=== PATIENT | female | born 1985 | race Caucasian/White ===

== ENCOUNTER → 2020-06-25 08:30 | Outpatient (CLI) | payer OTHER, SELFPAY ==
[2020-06-25 09:40] LABS: Hemoglobin A1C% w Est Avg Glu 5.1 % (4.0-6.0)
[2020-06-25 09:56] LABS: Cholesterol 171 mg/dL (140-199); HDL Cholesterol 50 mg/dL (40-60); LDL Cholesterol Calculated 104 mg/dL (<100); Triglycerides 87 mg/dL (35-150)
== END ==
PROVIDERS: PCP Family Medicine; Referring Provider Family Medicine; Visit Provider Family Medicine
DX: Z00.01 Encounter for general adult medical examination with abnormal findings (principal)
CPT/HCPCS: 36415; 80061; 83036

== ENCOUNTER 2020-11-30 16:45 | Outpatient (RCR) | payer OTHER, SELFPAY ==
--- NOTE | 2020-09-08 17:45 | PT.OPPOC ---
Physical, Occupational & Speech Therapy At [facility] Current Diagnoses Pain in left hip (09/08/20) Stiffness of right hip, not elsewhere classified (09/08/20) Muscle weakness (generalized) (09/08/20) Trochanteric bursitis, right hip (09/08/20) Visit Care Team Role Provider Type Caden Gimenez MD Attending Provider Physician Family Provider Primary Care Provider Referring Provider Specialty: Family Practice Address: [address] [place] [address], [facility] Email: [email or web address] Plan Of Care PT-OP-T Assessment and Plan Start: 09/08/20 17:47 Freq: Status: Active Protocol: Document 09/08/20 16:45 DCW (Rec: 09/09/20 12:45 DCW [id number]) Physical Therapy Assessment Rehab Potential Rehabilitation Potential Excellent Evaluation Complexity Number of Personal Factors/Comorbidities 0 Number of Body Systems Impaired 1-2 Clinical Presentation at Evaluation Stable Impairments Impairments Functional Activities, Functional Mobility,Gait,Pain, ROM,Soft Tissue Mobility, Strength Goals Three Impairment Tenderness and tone along TFL and ITB Cold Work Operator Goal (LTG) Pt to note no tenderness in area of TFL during a two mile run LTG Duration 11/10/19 Two Impairment Pt presents with a 3 cm R LLD Cold Work Operator Goal (LTG) Pt to wear heel lift in right shoe 75% of the time over two weeks to determine if there is a change in her symptoms. LTG Duration 11/10/20 One Impairment Pt does not have an appropriate home exercise program Short Term Goal (STG) Pt to be independent and compliant with an appropriate HEP STG Duration 10/10/20 Assessment Summary Assessment Pt presents with pain and tenderness along TFL and ITB, which affects her activity level, especially her running. Pt appears to have a 3 cm leg length discrepancy, which affects her gait and hip mobility, and may be causing some of her discomfort. Pt does display increased tone in R TFL, ITB, and psoas. Pt should benefit from skilled therapy focusing on STM, Flexibility, Strengthening, and use of heel lift to help eliminate symptoms caused by potential LLD. Physical Therapy Plan Frequency and Duration Frequency of Treatment 1-2x/week Duration of Treatment 2 months Plan of Care Start Date 09/08/20 Plan of Care End Date 11/09/20 Therapeutic Interventions Therapeutic Interventions Gait Training,Home Exercise Program,Joint Mobilizations, Manual Therapy,Patient/ Caregiver Education,Self-Care/ Home Management,Soft Tissue Mobilization,Therapeutic Activities,Therapeutic Exercises Next Visit Focus/Plan Next Note Type Treatment Note Next Visit Plan Hip strengthening, STM, Flexibility Plan of Care Dates Plan of Care Start Date 09/08/20 Plan of Care End Date 11/09/20 Electronically Signed by: Mook Harkins, PT 09/09/20 1214 Please Sign and Return: I have reviewed this Plan of Care and certify that the skilled therapy services above are required to meet the patient?s needs. Physician Signature Date Printed Name and Credentials Clinical Instructor Signature Printed Name and Credentials
--- NOTE | 2020-09-08 17:45 | PT.OIE ---
Current Diagnoses Pain in left hip (09/08/20) Stiffness of right hip, not elsewhere classified (09/08/20) Muscle weakness (generalized) (09/08/20) Trochanteric bursitis, right hip (09/08/20) Past Medical History (Last Updated 06/28/20 @ 21:42 by Zenaida Fall) Fractures Shoulder subluxation (~2007) Trochanteric bursitis of right hip Visit Care Team Role Provider Type Caden Gimenez MD Attending Provider Physician Family Provider Primary Care Provider Referring Provider Specialty: Family Practice Address: [address] [place] [address] Email: [email or web address] Physical Therapy Initial Evaluation PT-OP-A Visit Information Start: 09/08/20 17:47 Freq: Status: Active Protocol: Document 09/08/20 16:45 DCW (Rec: 09/08/20 17:50 DCW [id number]) Out-Patient Physical Therapy Visit Information Visit Information Visit Type Initial Evaluation Visit Start Time 16:45 Visit Stop Time 17:30 Total Visit Minutes 45 Visit Number 1 Number of BOBBIN PRESSER Visits 0 Evaluation Information Evaluation Date 09/08/20 PT-OP-B Current Condition Start: 09/08/20 17:47 Freq: Status: Active Protocol: Document 09/08/20 16:45 DCW (Rec: 09/09/20 12:45 DCW [id number]) Current Condition History of Current Condition Onset Date 2006 Current Complaints Hip pain, stiffness History of Current Condition Pt is a 35 year old female presenting with a 13 year history of intermittent hip pain. Pt notes it began bothering her in 2006 after she left the [employer]. Pt reports there was no initial injury, and she is not aware of any activity that seems to make things worse, it just comes and goes. Pt notes that when she is already sore, running makes it worse, and standing up after an extended period of time sitting also give her problems. Notes her pain is fairly point specific around her right Iliac crest. Reports the pain feels like more of a burning, and is fairly superficial. PT-OP-C Subjective Start: 09/08/20 17:47 Freq: Status: Active Protocol: Document 09/08/20 16:45 DCW (Rec: 09/08/20 17:52 DCW [id number]) OP-PT Subjective Patient Comments Patient Comments Pt reports he pain has been intermittant over the last 13 years, unsure what actually causes it to flare up. Patient Questionnaires Lower Extremity Functional Scale LEFS Score 71/80 = 88.75% LEFS Impairment 1 to 19% Impaired (Score 63-79 ) PT-OP-F Manual Assessment Start: 09/08/20 17:47 Freq: Status: Active Protocol: Document 09/08/20 16:45 DCW (Rec: 09/09/20 12:45 DCW [id number]) Manual Assessments Soft Tissue Assessment Soft Tissue Mobility Assessment 2/4 Tenderness to palpation: pain with wincing along right iliac crest soft tissue, entire length of IT band. 3/4 Tenderness to palpation: wincing and withdraw along right psoas Other Manual Assessments Other Manual Assessments Leg length measurement, ASIS to medial Malleoli: R=82 cm, L =85 cm PT-OP-L Special Tests Start: 09/08/20 17:47 Freq: Status: Active Protocol: Document 09/08/20 16:45 DCW (Rec: 09/09/20 12:45 DCW [id number]) Special Tests Lumbar Spine Special Tests Straight Leg Raise Test Results Negative A-P Shearing Test Results Negative Hip Special Tests PRABHA Test Results Negative Posterior Labral Test Test Results Negative Scour Test Test Results Negative Knee Special Tests Guillermina's Test Test Results Positive R PT-OP-M Strength Start: 09/08/20 17:47 Freq: Status: Active Protocol: Document 09/08/20 16:45 DCW (Rec: 09/09/20 12:45 DCW [id number]) Hip Strength Hip Manual Muscle Testing Right Flexion (L2) 4+ Good+ Abduction 4 Good External Rotation 5 Normal Internal Rotation 4 Good PT-OP-Q Treatments Start: 09/08/20 17:47 Freq: Status: Active Protocol: Document 09/08/20 16:45 DCW (Rec: 09/09/20 12:45 DCW [id number]) Therapeutic Exercises Supine Exercises 1 Supine Exercise Name Psoas stretch off table Side right Standing Exercises 2 Standing Exercise Name Half-kneeling psoas stretch Side right 1 Standing Exercise Name Hip Abduction Side bilateral Resistance Yellow Equipment Used T-band PT-OP-T Assessment and Plan Start: 09/08/20 17:47 Freq: Status: Active Protocol: Document 09/08/20 16:45 DCW (Rec: 09/09/20 12:45 DCW [id number]) Physical Therapy Assessment Rehab Potential Rehabilitation Potential Excellent Evaluation Complexity Number of Personal Factors/Comorbidities 0 Number of Body Systems Impaired 1-2 Clinical Presentation at Evaluation Stable Impairments Impairments Functional Activities, Functional Mobility,Gait,Pain, ROM,Soft Tissue Mobility, Strength Goals Three Impairment Tenderness and tone along TFL and ITB Shelter Goal (LTG) Pt to note no tenderness in area of TFL during a two mile run LTG Duration 11/10/19 Two Impairment Pt presents with a 3 cm R LLD Correctional Cook Goal (LTG) Pt to wear heel lift in right shoe 75% of the time over two weeks to determine if there is a change in her symptoms. LTG Duration 11/10/20 One Impairment Pt does not have an appropriate home exercise program Short Term Goal (STG) Pt to be independent and compliant with an appropriate HEP STG Duration 10/10/20 Assessment Summary Assessment Pt presents with pain and tenderness along TFL and ITB, which affects her activity level, especially her running. Pt appears to have a 3 cm leg length discrepancy, which affects her gait and hip mobility, and may be causing some of her discomfort. Pt does display increased tone in R TFL, ITB, and psoas. Pt should benefit from skilled therapy focusing on STM, Flexibility, Strengthening, and use of heel lift to help eliminate symptoms caused by potential LLD. Physical Therapy Plan Frequency and Duration Frequency of Treatment 1-2x/week Duration of Treatment 2 months Plan of Care Start Date 09/08/20 Plan of Care End Date 11/09/20 Therapeutic Interventions Therapeutic Interventions Gait Training,Home Exercise Program,Joint Mobilizations, Manual Therapy,Patient/ Caregiver Education,Self-Care/ Home Management,Soft Tissue Mobilization,Therapeutic Activities,Therapeutic Exercises Next Visit Focus/Plan Next Note Type Treatment Note Next Visit Plan Hip strengthening, STM, Flexibility
--- NOTE | 2020-09-21 17:51 | PT.OTN ---
Current Diagnoses Pain in left hip (09/21/20) Stiffness of right hip, not elsewhere classified (09/21/20) Muscle weakness (generalized) (09/21/20) Trochanteric bursitis, right hip (09/21/20) Physical Therapy Treatment Note PT-OP-A Visit Information Start: 09/08/20 17:47 Freq: Status: Active Protocol: Document 09/21/20 16:41 DCW (Rec: 09/21/20 17:49 DCW [id number]) Out-Patient Physical Therapy Visit Information Visit Information Visit Type Treatment Note Visit Start Time 16:41 Visit Stop Time 17:36 Total Visit Minutes 55 Visit Number 2 Number of AIRCRAFT CHARTER DISPATCHER Visits 0 Evaluation Information Evaluation Date 09/08/20 PT-OP-B Current Condition Start: 09/08/20 17:47 Freq: Status: Active Protocol: Document 09/08/20 16:45 DCW (Rec: 09/09/20 12:45 DCW [id number]) Current Condition History of Current Condition Onset Date 2006 Current Complaints Hip pain, stiffness History of Current Condition Pt is a 35 year old female presenting with a 13 year history of intermittent hip pain. Pt notes it began bothering her in 2006 after she left the [employer]. Pt reports there was no initial injury, and she is not aware of any activity that seems to make things worse, it just comes and goes. Pt notes that when she is already sore, running makes it worse, and standing up after an extended period of time sitting also give her problems. Notes her pain is fairly point specific around her right Iliac crest. Reports the pain feels like more of a burning, and is fairly superficial. PT-OP-C Subjective Start: 09/08/20 17:47 Freq: Status: Active Protocol: Document 09/21/20 16:41 DCW (Rec: 09/21/20 17:51 DCW [id number]) OP-PT Subjective Patient Comments Patient Comments Pt has built up to wearing the thickest heel lift, notes she got a little twinge in her back yesterday, which was her first day wearing it for a full day at work, but it felt fine today. PT-OP-F Manual Assessment Start: 09/08/20 17:47 Freq: Status: Active Protocol: Document 09/08/20 16:45 DCW (Rec: 09/09/20 12:45 DCW [id number]) Manual Assessments Soft Tissue Assessment Soft Tissue Mobility Assessment 2/4 Tenderness to palpation: pain with wincing along right iliac crest soft tissue, entire length of IT band. 3/4 Tenderness to palpation: wincing and withdraw along right psoas Other Manual Assessments Other Manual Assessments Leg length measurement, ASIS to medial Malleoli: R=82 cm, L =85 cm PT-OP-L Special Tests Start: 09/08/20 17:47 Freq: Status: Active Protocol: Document 09/08/20 16:45 DCW (Rec: 09/09/20 12:45 DCW [id number]) Special Tests Lumbar Spine Special Tests Straight Leg Raise Test Results Negative A-P Shearing Test Results Negative Hip Special Tests PRABHA Test Results Negative Posterior Labral Test Test Results Negative Scour Test Test Results Negative Knee Special Tests Guillermina's Test Test Results Positive R PT-OP-M Strength Start: 09/08/20 17:47 Freq: Status: Active Protocol: Document 09/08/20 16:45 DCW (Rec: 09/09/20 12:45 DCW [id number]) Hip Strength Hip Manual Muscle Testing Right Flexion (L2) 4+ Good+ Abduction 4 Good External Rotation 5 Normal Internal Rotation 4 Good PT-OP-Q Treatments Start: 09/08/20 17:47 Freq: Status: Active Protocol: Document 09/21/20 16:41 DCW (Rec: 09/21/20 17:49 DCW [id number]) Therapeutic Exercises Supine Exercises 1 Supine Exercise Name Psoas stretch off table Side right Standing Exercises 1 Standing Exercise Name Hip Abduction Side bilateral Resistance Lv 3 Equipment Used T-band Manual Therapy Treatment Soft Tissue Mobilization 3 Body Location Distal Adductors 2 Body Location R TFL/ITB Mobilization Type Strumming,Sustained Pressure Intensity/Depth Moderate 1 Body Location B Psoas Mobilization Type Sustained Pressure Intensity/Depth Deep PT-OP-T Assessment and Plan Start: 09/08/20 17:47 Freq: Status: Active Protocol: Document 09/21/20 16:41 DCW (Rec: 09/21/20 17:49 DCW [id number]) Physical Therapy Assessment Impairments Impairments Functional Activities, Functional Mobility,Gait,Pain, ROM,Soft Tissue Mobility, Strength Goals Three Impairment Tenderness and tone along TFL and ITB Development Intern Goal (LTG) Pt to note no tenderness in area of TFL during a two mile run LTG Duration 11/10/19 Two Impairment Pt presents with a 3 cm R LLD Residential Goal (LTG) Pt to wear heel lift in right shoe 75% of the time over two weeks to determine if there is a change in her symptoms. LTG Duration 11/10/20 One Impairment Pt does not have an appropriate home exercise program Short Term Goal (STG) Pt to be independent and compliant with an appropriate HEP STG Duration 10/10/20 Assessment Summary Assessment Pt repeatedly stated she couldn't feel anything in the lateral hip of her right stance leg when performing hip abduction, like she could on the left, when the glute med was very noticeably fatiguing. Therapist palpated the area, and was unable to find any evidence of Glute Med firing, just compensatory firing of the quads, glute max, and hamstrings. Pt's R glute med appears to have significant atrophy. May attempt [place] Zealander stim next week in an attempt to cause contraction. Physical Therapy Plan Frequency and Duration Frequency of Treatment 1-2x/week Duration of Treatment 2 months Plan of Care Start Date 09/08/20 Plan of Care End Date 11/09/20 Therapeutic Interventions Therapeutic Interventions Gait Training,Home Exercise Program,Joint Mobilizations, Manual Therapy,Patient/ Caregiver Education,Self-Care/ Home Management,Soft Tissue Mobilization,Therapeutic Activities,Therapeutic Exercises Next Visit Focus/Plan Next Note Type Treatment Note Next Visit Plan Hip strengthening, STM, Flexibility
--- NOTE | 2020-09-27 17:39 | PT.OTN ---
Current Diagnoses Pain in left hip (09/27/20) Stiffness of right hip, not elsewhere classified (09/27/20) Muscle weakness (generalized) (09/27/20) Trochanteric bursitis, right hip (09/27/20) Physical Therapy Treatment Note PT-OP-A Visit Information Start: 09/08/20 17:47 Freq: Status: Active Protocol: Document 09/27/20 16:45 DCW (Rec: 09/27/20 17:38 DCW [id number]) Out-Patient Physical Therapy Visit Information Visit Information Visit Type Treatment Note Visit Start Time 16:45 Visit Stop Time 17:30 Total Visit Minutes 45 Visit Number 3 Number of PAPER FINISHER Visits 0 Evaluation Information Evaluation Date 09/08/20 PT-OP-B Current Condition Start: 09/08/20 17:47 Freq: Status: Active Protocol: Document 09/08/20 16:45 DCW (Rec: 09/09/20 12:45 DCW [id number]) Current Condition History of Current Condition Onset Date 2006 Current Complaints Hip pain, stiffness History of Current Condition Pt is a 35 year old female presenting with a 13 year history of intermittent hip pain. Pt notes it began bothering her in 2006 after she left the [employer]. Pt reports there was no initial injury, and she is not aware of any activity that seems to make things worse, it just comes and goes. Pt notes that when she is already sore, running makes it worse, and standing up after an extended period of time sitting also give her problems. Notes her pain is fairly point specific around her right Iliac crest. Reports the pain feels like more of a burning, and is fairly superficial. PT-OP-C Subjective Start: 09/08/20 17:47 Freq: Status: Active Protocol: Document 09/27/20 16:45 DCW (Rec: 09/27/20 17:38 DCW [id number]) OP-PT Subjective Patient Comments Patient Comments Pt still having trouble getting glute med to contract during HEP. PT-OP-F Manual Assessment Start: 09/08/20 17:47 Freq: Status: Active Protocol: Document 09/08/20 16:45 DCW (Rec: 09/09/20 12:45 DCW [id number]) Manual Assessments Soft Tissue Assessment Soft Tissue Mobility Assessment 2/4 Tenderness to palpation: pain with wincing along right iliac crest soft tissue, entire length of IT band. 3/4 Tenderness to palpation: wincing and withdraw along right psoas Other Manual Assessments Other Manual Assessments Leg length measurement, ASIS to medial Malleoli: R=82 cm, L =85 cm PT-OP-L Special Tests Start: 09/08/20 17:47 Freq: Status: Active Protocol: Document 09/08/20 16:45 DCW (Rec: 09/09/20 12:45 DCW [id number]) Special Tests Lumbar Spine Special Tests Straight Leg Raise Test Results Negative A-P Shearing Test Results Negative Hip Special Tests PRABHA Test Results Negative Posterior Labral Test Test Results Negative Scour Test Test Results Negative Knee Special Tests Guillermina's Test Test Results Positive R PT-OP-M Strength Start: 09/08/20 17:47 Freq: Status: Active Protocol: Document 09/08/20 16:45 DCW (Rec: 09/09/20 12:45 DCW [id number]) Hip Strength Hip Manual Muscle Testing Right Flexion (L2) 4+ Good+ Abduction 4 Good External Rotation 5 Normal Internal Rotation 4 Good PT-OP-Q Treatments Start: 09/08/20 17:47 Freq: Status: Active Protocol: Document 09/27/20 16:45 DCW (Rec: 09/27/20 17:38 DCW [id number]) Therapeutic Exercises Sidelying Exercises 1 Sidelying Exercise Name Triple Threat Side right Manual Therapy Treatment Soft Tissue Mobilization 3 Body Location Distal Adductors 2 Body Location R TFL/ITB Mobilization Type Strumming,Sustained Pressure Intensity/Depth Moderate 1 Body Location B Psoas Mobilization Type Sustained Pressure Intensity/Depth Deep PT-OP-R Modalities Start: 09/08/20 17:47 Freq: Status: Active Protocol: Document 09/27/20 16:45 DCW (Rec: 09/27/20 17:38 DCW [id number]) Electric Stimulation Electric Stimulation Danish Stimulation Body Location R Glute Med Duration (Minutes) 10 Ramp 2.0 Patient Position Sidelying Comments Cycle: 4 on/12 off PT-OP-T Assessment and Plan Start: 09/08/20 17:47 Freq: Status: Active Protocol: Document 09/27/20 16:45 DCW (Rec: 09/27/20 17:38 DCW [id number]) Physical Therapy Assessment Impairments Impairments Functional Activities, Functional Mobility,Gait,Pain, ROM,Soft Tissue Mobility, Strength Goals Three Impairment Tenderness and tone along TFL and ITB Sales Representative Gas Service Goal (LTG) Pt to note no tenderness in area of TFL during a two mile run LTG Duration 11/10/19 Two Impairment Pt presents with a 3 cm R LLD Sales Representative Gas Service Goal (LTG) Pt to wear heel lift in right shoe 75% of the time over two weeks to determine if there is a change in her symptoms. LTG Duration 11/10/20 One Impairment Pt does not have an appropriate home exercise program Short Term Goal (STG) Pt to be independent and compliant with an appropriate HEP STG Duration 10/10/20 Assessment Summary Assessment Able to palpate mild muscle contraction in glute med during exercise following Danish Stim to lateral right hip. Encouraged pt to focus on attempting to perform glute sets and using hands to feel for contraction to develop better coordination between muscle and brain. Physical Therapy Plan Frequency and Duration Frequency of Treatment 1-2x/week Duration of Treatment 2 months Plan of Care Start Date 09/08/20 Plan of Care End Date 11/09/20 Therapeutic Interventions Therapeutic Interventions Gait Training,Home Exercise Program,Joint Mobilizations, Manual Therapy,Patient/ Caregiver Education,Self-Care/ Home Management,Soft Tissue Mobilization,Therapeutic Activities,Therapeutic Exercises Next Visit Focus/Plan Next Note Type Treatment Note Next Visit Plan Hip strengthening, STM, Flexibility
--- NOTE | 2020-10-01 10:31 | PT.OTN ---
Current Diagnoses Pain in left hip (10/01/20) Stiffness of right hip, not elsewhere classified (10/01/20) Muscle weakness (generalized) (10/01/20) Trochanteric bursitis, right hip (10/01/20) Physical Therapy Treatment Note PT-OP-A Visit Information Start: 09/08/20 17:47 Freq: Status: Active Protocol: Document 10/01/20 09:45 DCW (Rec: 10/01/20 10:31 DCW [id number]) Out-Patient Physical Therapy Visit Information Visit Information Visit Type Treatment Note Visit Start Time 09:45 Visit Stop Time 10:30 Total Visit Minutes 45 Visit Number 4 Number of CEREAL SUPERVISOR Visits 0 Evaluation Information Evaluation Date 09/08/20 PT-OP-B Current Condition Start: 09/08/20 17:47 Freq: Status: Active Protocol: Document 09/08/20 16:45 DCW (Rec: 09/09/20 12:45 DCW [id number]) Current Condition History of Current Condition Onset Date 2006 Current Complaints Hip pain, stiffness History of Current Condition Pt is a 35 year old female presenting with a 13 year history of intermittent hip pain. Pt notes it began bothering her in 2006 after she left the [employer]. Pt reports there was no initial injury, and she is not aware of any activity that seems to make things worse, it just comes and goes. Pt notes that when she is already sore, running makes it worse, and standing up after an extended period of time sitting also give her problems. Notes her pain is fairly point specific around her right Iliac crest. Reports the pain feels like more of a burning, and is fairly superficial. PT-OP-C Subjective Start: 09/08/20 17:47 Freq: Status: Active Protocol: Document 10/01/20 09:45 DCW (Rec: 10/01/20 10:31 DCW [id number]) OP-PT Subjective Patient Comments Patient Comments I think I am starting to feel it work more. I'm trying to use a lot of brain power to focus on it. PT-OP-F Manual Assessment Start: 09/08/20 17:47 Freq: Status: Active Protocol: Document 09/08/20 16:45 DCW (Rec: 09/09/20 12:45 DCW [id number]) Manual Assessments Soft Tissue Assessment Soft Tissue Mobility Assessment 2/4 Tenderness to palpation: pain with wincing along right iliac crest soft tissue, entire length of IT band. 3/4 Tenderness to palpation: wincing and withdraw along right psoas Other Manual Assessments Other Manual Assessments Leg length measurement, ASIS to medial Malleoli: R=82 cm, L =85 cm PT-OP-L Special Tests Start: 09/08/20 17:47 Freq: Status: Active Protocol: Document 09/08/20 16:45 DCW (Rec: 09/09/20 12:45 DCW [id number]) Special Tests Lumbar Spine Special Tests Straight Leg Raise Test Results Negative A-P Shearing Test Results Negative Hip Special Tests PRABHA Test Results Negative Posterior Labral Test Test Results Negative Scour Test Test Results Negative Knee Special Tests Guillermina's Test Test Results Positive R PT-OP-M Strength Start: 09/08/20 17:47 Freq: Status: Active Protocol: Document 09/08/20 16:45 DCW (Rec: 09/09/20 12:45 DCW [id number]) Hip Strength Hip Manual Muscle Testing Right Flexion (L2) 4+ Good+ Abduction 4 Good External Rotation 5 Normal Internal Rotation 4 Good PT-OP-Q Treatments Start: 09/08/20 17:47 Freq: Status: Active Protocol: Document 10/01/20 09:45 DCW (Rec: 10/01/20 10:31 DCW [id number]) Gym Equipment Sport Cord 2 Exercise Details Lateral step-up onto BOSU Cord/Resistance Red 1 Exercise Details SLS vs lateral resistance Cord/Resistance Red Manual Therapy Treatment Soft Tissue Mobilization 3 Body Location Distal Adductors 2 Body Location R TFL/ITB Mobilization Type Strumming,Sustained Pressure Intensity/Depth Moderate 1 Body Location B Psoas Mobilization Type Sustained Pressure Intensity/Depth Deep PT-OP-R Modalities Start: 09/08/20 17:47 Freq: Status: Active Protocol: Document 10/01/20 09:45 DCW (Rec: 10/01/20 10:31 DCW [id number]) Electric Stimulation Electric Stimulation Greenlandic Stimulation Body Location R Glute Med Duration (Minutes) 10 Ramp 2.0 Patient Position Sidelying Comments Cycle: 4 on/12 off AROM - Hip Abduction PT-OP-T Assessment and Plan Start: 09/08/20 17:47 Freq: Status: Active Protocol: Document 10/01/20 09:45 DCW (Rec: 10/01/20 10:31 DCW [id number]) Physical Therapy Assessment Impairments Impairments Functional Activities, Functional Mobility,Gait,Pain, ROM,Soft Tissue Mobility, Strength Goals Three Impairment Tenderness and tone along TFL and ITB Sanitation Worker Hosing Machinery Goal (LTG) Pt to note no tenderness in area of TFL during a two mile run LTG Duration 11/10/19 Two Impairment Pt presents with a 3 cm R LLD Sanitation Worker Hosing Machinery Goal (LTG) Pt to wear heel lift in right shoe 75% of the time over two weeks to determine if there is a change in her symptoms. LTG Duration 11/10/20 One Impairment Pt does not have an appropriate home exercise program Short Term Goal (STG) Pt to be independent and compliant with an appropriate HEP STG Duration 10/10/20 Assessment Summary Assessment Pt continuing to show improving muscle contraction with SLS stabilization and abduction. Physical Therapy Plan Frequency and Duration Frequency of Treatment 1-2x/week Duration of Treatment 2 months Plan of Care Start Date 09/08/20 Plan of Care End Date 11/09/20 Therapeutic Interventions Therapeutic Interventions Gait Training,Home Exercise Program,Joint Mobilizations, Manual Therapy,Patient/ Caregiver Education,Self-Care/ Home Management,Soft Tissue Mobilization,Therapeutic Activities,Therapeutic Exercises Next Visit Focus/Plan Next Note Type Treatment Note Next Visit Plan Hip strengthening, STM, Flexibility
--- NOTE | 2020-10-08 10:35 | PT.OTN ---
Current Diagnoses Pain in left hip (10/08/20) Stiffness of right hip, not elsewhere classified (10/08/20) Muscle weakness (generalized) (10/08/20) Trochanteric bursitis, right hip (10/08/20) Physical Therapy Treatment Note PT-OP-A Visit Information Start: 09/08/20 17:47 Freq: Status: Active Protocol: Document 10/08/20 09:45 DCW (Rec: 10/08/20 10:35 DCW [id number]) Out-Patient Physical Therapy Visit Information Visit Information Visit Type Treatment Note Visit Start Time 09:45 Visit Stop Time 10:30 Total Visit Minutes 45 Visit Number 5 Number of ASSOCIATE CONSULTING ENGINEER Visits 0 Evaluation Information Evaluation Date 09/08/20 PT-OP-B Current Condition Start: 09/08/20 17:47 Freq: Status: Active Protocol: Document 09/08/20 16:45 DCW (Rec: 09/09/20 12:45 DCW [id number]) Current Condition History of Current Condition Onset Date 2006 Current Complaints Hip pain, stiffness History of Current Condition Pt is a 35 year old female presenting with a 13 year history of intermittent hip pain. Pt notes it began bothering her in 2006 after she left the [employer]. Pt reports there was no initial injury, and she is not aware of any activity that seems to make things worse, it just comes and goes. Pt notes that when she is already sore, running makes it worse, and standing up after an extended period of time sitting also give her problems. Notes her pain is fairly point specific around her right Iliac crest. Reports the pain feels like more of a burning, and is fairly superficial. PT-OP-C Subjective Start: 09/08/20 17:47 Freq: Status: Active Protocol: Document 10/08/20 09:45 DCW (Rec: 10/08/20 10:35 DCW [id number]) OP-PT Subjective Patient Comments Patient Comments Not much of a change with hip pain, notes she still not feeling a lot of activation in her hip. Admits there has been a lot of tightness and burning this week in her hip. PT-OP-F Manual Assessment Start: 09/08/20 17:47 Freq: Status: Active Protocol: Document 09/08/20 16:45 DCW (Rec: 09/09/20 12:45 DCW [id number]) Manual Assessments Soft Tissue Assessment Soft Tissue Mobility Assessment 2/4 Tenderness to palpation: pain with wincing along right iliac crest soft tissue, entire length of IT band. 3/4 Tenderness to palpation: wincing and withdraw along right psoas Other Manual Assessments Other Manual Assessments Leg length measurement, ASIS to medial Malleoli: R=82 cm, L =85 cm PT-OP-L Special Tests Start: 09/08/20 17:47 Freq: Status: Active Protocol: Document 09/08/20 16:45 DCW (Rec: 09/09/20 12:45 DCW [id number]) Special Tests Lumbar Spine Special Tests Straight Leg Raise Test Results Negative A-P Shearing Test Results Negative Hip Special Tests PRABHA Test Results Negative Posterior Labral Test Test Results Negative Scour Test Test Results Negative Knee Special Tests Guillermina's Test Test Results Positive R PT-OP-M Strength Start: 09/08/20 17:47 Freq: Status: Active Protocol: Document 09/08/20 16:45 DCW (Rec: 09/09/20 12:45 DCW [id number]) Hip Strength Hip Manual Muscle Testing Right Flexion (L2) 4+ Good+ Abduction 4 Good External Rotation 5 Normal Internal Rotation 4 Good PT-OP-Q Treatments Start: 09/08/20 17:47 Freq: Status: Active Protocol: Document 10/08/20 09:45 DCW (Rec: 10/08/20 10:35 DCW [id number]) Gym Equipment Sport Cord 2 Exercise Details Lateral step-up onto BOSU Cord/Resistance Red 1 Exercise Details SLS vs lateral resistance Cord/Resistance Red Manual Therapy Treatment Soft Tissue Mobilization 3 Body Location Distal Adductors 2 Body Location B TFL/ITB Mobilization Type Strumming,Sustained Pressure Intensity/Depth Moderate 1 Body Location B Psoas Mobilization Type Sustained Pressure Intensity/Depth Deep PT-OP-R Modalities Start: 09/08/20 17:47 Freq: Status: Active Protocol: Document 10/08/20 09:45 DCW (Rec: 10/08/20 10:35 DCW [id number]) Electric Stimulation Electric Stimulation Ecuadorean Stimulation Body Location R Glute Med Duration (Minutes) 10 Ramp 2.0 Patient Position Sidelying Comments Cycle: 4 on/12 off AROM - Hip Abduction PT-OP-T Assessment and Plan Start: 09/08/20 17:47 Freq: Status: Active Protocol: Document 10/08/20 09:45 DCW (Rec: 10/08/20 10:35 DCW [id number]) Physical Therapy Assessment Impairments Impairments Functional Activities, Functional Mobility,Gait,Pain, ROM,Soft Tissue Mobility, Strength Goals Three Impairment Tenderness and tone along TFL and ITB Jail Goal (LTG) Pt to note no tenderness in area of TFL during a two mile run LTG Duration 11/10/19 Two Impairment Pt presents with a 3 cm R LLD [facility] Goal (LTG) Pt to wear heel lift in right shoe 75% of the time over two weeks to determine if there is a change in her symptoms. LTG Duration 11/10/20 One Impairment Pt does not have an appropriate home exercise program Short Term Goal (STG) Pt to be independent and compliant with an appropriate HEP STG Duration 10/10/20 Assessment Summary Assessment Pt making slow but consistent progress with function and contraction of her glute med. Physical Therapy Plan Frequency and Duration Frequency of Treatment 1-2x/week Duration of Treatment 2 months Plan of Care Start Date 09/08/20 Plan of Care End Date 11/09/20 Therapeutic Interventions Therapeutic Interventions Gait Training,Home Exercise Program,Joint Mobilizations, Manual Therapy,Patient/ Caregiver Education,Self-Care/ Home Management,Soft Tissue Mobilization,Therapeutic Activities,Therapeutic Exercises Next Visit Focus/Plan Next Note Type Treatment Note Next Visit Plan Hip strengthening, STM, Flexibility
--- NOTE | 2020-11-02 17:27 | PT.OTN ---
Current Diagnoses Pain in left hip (11/02/20) Stiffness of right hip, not elsewhere classified (11/02/20) Muscle weakness (generalized) (11/02/20) Trochanteric bursitis, right hip (11/02/20) Physical Therapy Treatment Note PT-OP-A Visit Information Start: 09/08/20 17:47 Freq: Status: Active Protocol: Document 11/02/20 16:45 DCW (Rec: 11/02/20 17:27 DCW [id number]) Out-Patient Physical Therapy Visit Information Visit Information Visit Type Treatment Note Visit Start Time 16:45 Visit Stop Time 17:30 Total Visit Minutes 45 Visit Number 6 Number of CATERING TRUCK OPERATOR Visits 0 Evaluation Information Evaluation Date 09/08/20 PT-OP-B Current Condition Start: 09/08/20 17:47 Freq: Status: Active Protocol: Document 09/08/20 16:45 DCW (Rec: 09/09/20 12:45 DCW [id number]) Current Condition History of Current Condition Onset Date 2006 Current Complaints Hip pain, stiffness History of Current Condition Pt is a 35 year old female presenting with a 13 year history of intermittent hip pain. Pt notes it began bothering her in 2006 after she left the [employer]. Pt reports there was no initial injury, and she is not aware of any activity that seems to make things worse, it just comes and goes. Pt notes that when she is already sore, running makes it worse, and standing up after an extended period of time sitting also give her problems. Notes her pain is fairly point specific around her right Iliac crest. Reports the pain feels like more of a burning, and is fairly superficial. PT-OP-C Subjective Start: 09/08/20 17:47 Freq: Status: Active Protocol: Document 11/02/20 16:45 DCW (Rec: 11/02/20 17:27 DCW [id number]) OP-PT Subjective Patient Comments Patient Comments Pt reports her hip is actually feeling really good, notes minimal to no pain, still has a little difficulty feeling contraction in her glute med with resisted abduction PT-OP-F Manual Assessment Start: 09/08/20 17:47 Freq: Status: Active Protocol: Document 09/08/20 16:45 DCW (Rec: 09/09/20 12:45 DCW [id number]) Manual Assessments Soft Tissue Assessment Soft Tissue Mobility Assessment 2/4 Tenderness to palpation: pain with wincing along right iliac crest soft tissue, entire length of IT band. 3/4 Tenderness to palpation: wincing and withdraw along right psoas Other Manual Assessments Other Manual Assessments Leg length measurement, ASIS to medial Malleoli: R=82 cm, L =85 cm PT-OP-L Special Tests Start: 09/08/20 17:47 Freq: Status: Active Protocol: Document 09/08/20 16:45 DCW (Rec: 09/09/20 12:45 DCW [id number]) Special Tests Lumbar Spine Special Tests Straight Leg Raise Test Results Negative A-P Shearing Test Results Negative Hip Special Tests PRABHA Test Results Negative Posterior Labral Test Test Results Negative Scour Test Test Results Negative Knee Special Tests Guillermina's Test Test Results Positive R PT-OP-M Strength Start: 09/08/20 17:47 Freq: Status: Active Protocol: Document 09/08/20 16:45 DCW (Rec: 09/09/20 12:45 DCW [id number]) Hip Strength Hip Manual Muscle Testing Right Flexion (L2) 4+ Good+ Abduction 4 Good External Rotation 5 Normal Internal Rotation 4 Good PT-OP-Q Treatments Start: 09/08/20 17:47 Freq: Status: Active Protocol: Document 11/02/20 16:45 DCW (Rec: 11/02/20 17:27 DCW [id number]) Gym Equipment Shuttle Balance Red Details Lateral weight shift Sport Cord 1 Exercise Details SLS vs lateral resistance Cord/Resistance Red Manual Therapy Treatment Soft Tissue Mobilization 3 Body Location Distal Adductors 2 Body Location B TFL/ITB Mobilization Type Strumming,Sustained Pressure Intensity/Depth Moderate 1 Body Location B Psoas Mobilization Type Sustained Pressure Intensity/Depth Deep PT-OP-R Modalities Start: 09/08/20 17:47 Freq: Status: Active Protocol: Document 11/02/20 16:45 DCW (Rec: 11/02/20 17:27 DCW [id number]) Electric Stimulation Electric Stimulation Faroese Stimulation Body Location R Glute Med Duration (Minutes) 10 Ramp 2.0 Patient Position Sidelying Comments Cycle: 4 on/12 off AROM - Hip Abduction PT-OP-T Assessment and Plan Start: 09/08/20 17:47 Freq: Status: Active Protocol: Document 11/02/20 16:45 DCW (Rec: 11/02/20 17:27 DCW [id number]) Physical Therapy Assessment Impairments Impairments Functional Activities, Functional Mobility,Gait,Pain, ROM,Soft Tissue Mobility, Strength Goals Three Impairment Tenderness and tone along TFL and ITB Longterm Goal (LTG) Pt to note no tenderness in area of TFL during a two mile run LTG Duration 11/10/19 Two Impairment Pt presents with a 3 cm R LLD Carcass Trimmer Goal (LTG) Pt to wear heel lift in right shoe 75% of the time over two weeks to determine if there is a change in her symptoms. LTG Duration 11/10/20 One Impairment Pt does not have an appropriate home exercise program Short Term Goal (STG) Pt to be independent and compliant with an appropriate HEP STG Duration 10/10/20 Assessment Summary Assessment Significant improvement with glute med contraction during activity, pt showing great improvement and tolerance to therapy. Physical Therapy Plan Frequency and Duration Frequency of Treatment 1-2x/week Duration of Treatment 2 months Plan of Care Start Date 09/08/20 Plan of Care End Date 11/09/20 Therapeutic Interventions Therapeutic Interventions Gait Training,Home Exercise Program,Joint Mobilizations, Manual Therapy,Patient/ Caregiver Education,Self-Care/ Home Management,Soft Tissue Mobilization,Therapeutic Activities,Therapeutic Exercises Next Visit Focus/Plan Next Note Type Treatment Note Next Visit Plan Hip strengthening, STM, Flexibility
--- NOTE | 2020-11-05 10:32 | PT.OTN ---
Current Diagnoses Pain in left hip (11/05/20) Stiffness of right hip, not elsewhere classified (11/05/20) Muscle weakness (generalized) (11/05/20) Trochanteric bursitis, right hip (11/05/20) Physical Therapy Treatment Note PT-OP-A Visit Information Start: 09/08/20 17:47 Freq: Status: Active Protocol: Document 11/05/20 09:45 DCW (Rec: 11/05/20 10:32 DCW [id number]) Out-Patient Physical Therapy Visit Information Visit Information Visit Type Treatment Note Visit Start Time 09:45 Visit Stop Time 10:30 Total Visit Minutes 45 Visit Number 7 Number of ACCESSORIES REPAIRER Visits 0 Evaluation Information Evaluation Date 09/08/20 PT-OP-B Current Condition Start: 09/08/20 17:47 Freq: Status: Active Protocol: Document 09/08/20 16:45 DCW (Rec: 09/09/20 12:45 DCW [id number]) Current Condition History of Current Condition Onset Date 2006 Current Complaints Hip pain, stiffness History of Current Condition Pt is a 35 year old female presenting with a 13 year history of intermittent hip pain. Pt notes it began bothering her in 2006 after she left the [employer]. Pt reports there was no initial injury, and she is not aware of any activity that seems to make things worse, it just comes and goes. Pt notes that when she is already sore, running makes it worse, and standing up after an extended period of time sitting also give her problems. Notes her pain is fairly point specific around her right Iliac crest. Reports the pain feels like more of a burning, and is fairly superficial. PT-OP-C Subjective Start: 09/08/20 17:47 Freq: Status: Active Protocol: Document 11/05/20 09:45 DCW (Rec: 11/05/20 10:32 DCW [id number]) OP-PT Subjective Patient Comments Patient Comments Pt reports her hip has been feeling good recently, but has not attempted to return to running. PT-OP-F Manual Assessment Start: 09/08/20 17:47 Freq: Status: Active Protocol: Document 09/08/20 16:45 DCW (Rec: 09/09/20 12:45 DCW [id number]) Manual Assessments Soft Tissue Assessment Soft Tissue Mobility Assessment 2/4 Tenderness to palpation: pain with wincing along right iliac crest soft tissue, entire length of IT band. 3/4 Tenderness to palpation: wincing and withdraw along right psoas Other Manual Assessments Other Manual Assessments Leg length measurement, ASIS to medial Malleoli: R=82 cm, L =85 cm PT-OP-L Special Tests Start: 09/08/20 17:47 Freq: Status: Active Protocol: Document 09/08/20 16:45 DCW (Rec: 09/09/20 12:45 DCW [id number]) Special Tests Lumbar Spine Special Tests Straight Leg Raise Test Results Negative A-P Shearing Test Results Negative Hip Special Tests PRABHA Test Results Negative Posterior Labral Test Test Results Negative Scour Test Test Results Negative Knee Special Tests Guillermina's Test Test Results Positive R PT-OP-M Strength Start: 09/08/20 17:47 Freq: Status: Active Protocol: Document 09/08/20 16:45 DCW (Rec: 09/09/20 12:45 DCW [id number]) Hip Strength Hip Manual Muscle Testing Right Flexion (L2) 4+ Good+ Abduction 4 Good External Rotation 5 Normal Internal Rotation 4 Good PT-OP-Q Treatments Start: 09/08/20 17:47 Freq: Status: Active Protocol: Document 11/05/20 09:45 DCW (Rec: 11/05/20 10:32 DCW [id number]) Gym Equipment Sport Cord 1 Exercise Details SLS vs lateral resistance Cord/Resistance Red Therapeutic Exercises Standing Exercises 1 Standing Exercise Name Skaters Side bilateral Resistance Green Equipment Used T-band Manual Therapy Treatment Soft Tissue Mobilization 3 Body Location Distal Adductors 2 Body Location B TFL/ITB Mobilization Type Strumming,Sustained Pressure Intensity/Depth Moderate 1 Body Location B Psoas Mobilization Type Sustained Pressure Intensity/Depth Deep PT-OP-R Modalities Start: 09/08/20 17:47 Freq: Status: Active Protocol: Document 11/05/20 09:45 DCW (Rec: 11/05/20 10:32 DCW [id number]) Electric Stimulation Electric Stimulation Mauritanian Stimulation Body Location R Glute Med Duration (Minutes) 10 Ramp 2.0 Patient Position Sidelying Comments Cycle: 4 on/12 off AROM - Hip Abduction PT-OP-T Assessment and Plan Start: 09/08/20 17:47 Freq: Status: Active Protocol: Document 11/05/20 09:45 DCW (Rec: 11/05/20 10:32 DCW [id number]) Physical Therapy Assessment Impairments Impairments Functional Activities, Functional Mobility,Gait,Pain, ROM,Soft Tissue Mobility, Strength Goals Three Impairment Tenderness and tone along TFL and ITB Community Assistant Goal (LTG) Pt to note no tenderness in area of TFL during a two mile run LTG Duration 11/10/19 Two Impairment Pt presents with a 3 cm R LLD Community Assistant Goal (LTG) Pt to wear heel lift in right shoe 75% of the time over two weeks to determine if there is a change in her symptoms. LTG Duration 11/10/20 One Impairment Pt does not have an appropriate home exercise program Short Term Goal (STG) Pt to be independent and compliant with an appropriate HEP STG Duration 10/10/20 Assessment Summary Assessment Pt continues to show improvement, good glute med contraction with hip abduction today, felt fatigue in the glute with addition of skaters today. Physical Therapy Plan Frequency and Duration Frequency of Treatment 1-2x/week Duration of Treatment 2 months Plan of Care Start Date 09/08/20 Plan of Care End Date 11/09/20 Therapeutic Interventions Therapeutic Interventions Gait Training,Home Exercise Program,Joint Mobilizations, Manual Therapy,Patient/ Caregiver Education,Self-Care/ Home Management,Soft Tissue Mobilization,Therapeutic Activities,Therapeutic Exercises Next Visit Focus/Plan Next Note Type Treatment Note Next Visit Plan Hip strengthening, STM, Flexibility
--- NOTE | 2020-11-09 17:33 | PT.OTN ---
Current Diagnoses Pain in left hip (11/09/20) Stiffness of right hip, not elsewhere classified (11/09/20) Muscle weakness (generalized) (11/09/20) Trochanteric bursitis, right hip (11/09/20) Physical Therapy Treatment Note PT-OP-A Visit Information Start: 09/08/20 17:47 Freq: Status: Active Protocol: Document 11/09/20 16:45 DCW (Rec: 11/09/20 17:31 DCW [id number]) Out-Patient Physical Therapy Visit Information Visit Information Visit Type Progress Note Visit Start Time 16:45 Visit Stop Time 17:30 Total Visit Minutes 45 Visit Number 8 Number of RESPIRATORY SERVICES MANAGER Visits 0 Evaluation Information Evaluation Date 09/08/20 PT-OP-B Current Condition Start: 09/08/20 17:47 Freq: Status: Active Protocol: Document 09/08/20 16:45 DCW (Rec: 09/09/20 12:45 DCW [id number]) Current Condition History of Current Condition Onset Date 2006 Current Complaints Hip pain, stiffness History of Current Condition Pt is a 35 year old female presenting with a 13 year history of intermittent hip pain. Pt notes it began bothering her in 2006 after she left the [employer]. Pt reports there was no initial injury, and she is not aware of any activity that seems to make things worse, it just comes and goes. Pt notes that when she is already sore, running makes it worse, and standing up after an extended period of time sitting also give her problems. Notes her pain is fairly point specific around her right Iliac crest. Reports the pain feels like more of a burning, and is fairly superficial. PT-OP-C Subjective Start: 09/08/20 17:47 Freq: Status: Active Protocol: Document 11/09/20 16:45 DCW (Rec: 11/09/20 17:31 DCW [id number]) OP-PT Subjective Patient Comments Patient Comments Pt attempted running shortly on treadmill, but it went well . Pt went sledding during the snow storm, reports she probably walked ~6 miles in the snow, and didn't have any hip pain. PT-OP-F Manual Assessment Start: 09/08/20 17:47 Freq: Status: Active Protocol: Document 11/09/20 16:45 DCW (Rec: 11/09/20 17:33 DCW [id number]) Manual Assessments Soft Tissue Assessment Soft Tissue Mobility Assessment 2/4 Tenderness to palpation: pain with wincing along right iliac crest soft tissue, B psoas, entire length of IT band. 3/4 Tenderness to palpation: wincing and withdraw along bilateral adductors PT-OP-L Special Tests Start: 09/08/20 17:47 Freq: Status: Active Protocol: Document 11/09/20 16:45 DCW (Rec: 11/09/20 17:33 DCW [id number]) Special Tests Knee Special Tests Guillermina's Test Test Results Negative PT-OP-M Strength Start: 09/08/20 17:47 Freq: Status: Active Protocol: Document 11/09/20 16:45 DCW (Rec: 11/09/20 17:33 DCW [id number]) Hip Strength Hip Manual Muscle Testing Right Flexion (L2) 4+ Good+ Abduction 4 Good External Rotation 5 Normal Internal Rotation 4+ Good+ PT-OP-Q Treatments Start: 09/08/20 17:47 Freq: Status: Active Protocol: Document 11/09/20 16:45 DCW (Rec: 11/09/20 17:31 DCW [id number]) Gym Equipment Shuttle Balance Red Details Lateral weight shift, staggered ball toss Manual Therapy Treatment Soft Tissue Mobilization 3 Body Location Distal Adductors 2 Body Location B TFL/ITB Mobilization Type Strumming,Sustained Pressure Intensity/Depth Moderate 1 Body Location B Psoas Mobilization Type Sustained Pressure Intensity/Depth Deep PT-OP-R Modalities Start: 09/08/20 17:47 Freq: Status: Active Protocol: Document 11/09/20 16:45 DCW (Rec: 11/09/20 17:31 DCW [id number]) Electric Stimulation Electric Stimulation [place] Stimulation Body Location R Glute Med Duration (Minutes) 10 Ramp 2.0 Patient Position Sidelying Comments Cycle: 4 on/12 off AROM - Hip Abduction PT-OP-T Assessment and Plan Start: 09/08/20 17:47 Freq: Status: Active Protocol: Document 11/09/20 16:45 DCW (Rec: 11/09/20 17:31 DCW [id number]) Physical Therapy Assessment Impairments Impairments Functional Activities, Functional Mobility,Gait,Pain, ROM,Soft Tissue Mobility, Strength Goals Three Impairment Tenderness and tone along TFL and ITB [facility] Goal (LTG) Pt to note no tenderness in area of TFL during a two mile run LTG Duration 01/07/21 Two Impairment Pt presents with a 3 cm R LLD Roadway Technician Goal (LTG) Pt to wear heel lift in right shoe 75% of the time over two weeks to determine if there is a change in her symptoms. LTG Duration Met One Impairment Pt does not have an appropriate home exercise program Short Term Goal (STG) Pt to be independent and compliant with an appropriate HEP STG Duration Met Progress Towards Goals Progress Towards Goals Progressing Toward Goals Assessment Summary Assessment Pt making good progress, has increased activity level with no complaints of return of pain. ITB significantly less tone. Continue skilled PT in order to help patient return fully to prior level of function. Physical Therapy Plan Frequency and Duration Frequency of Treatment 1-2x/week Duration of Treatment 2 months Plan of Care Start Date 11/09/20 Plan of Care End Date 01/07/21 Therapeutic Interventions Therapeutic Interventions Gait Training,Home Exercise Program,Joint Mobilizations, Manual Therapy,Patient/ Caregiver Education,Self-Care/ Home Management,Soft Tissue Mobilization,Therapeutic Activities,Therapeutic Exercises Next Visit Focus/Plan Next Note Type Treatment Note Next Visit Plan Hip strengthening, STM, Flexibility
--- NOTE | 2020-11-09 17:33 | PT.OPPOC ---
Physical, Occupational & Speech Therapy At [facility] Current Diagnoses Pain in left hip (11/09/20) Stiffness of right hip, not elsewhere classified (11/09/20) Muscle weakness (generalized) (11/09/20) Trochanteric bursitis, right hip (11/09/20) Visit Care Team Role Provider Type Caden Gimenez MD Attending Provider Physician Family Provider Primary Care Provider Referring Provider Specialty: Family Practice Address: [address] [place] [address], [facility] Email: [email or web address] Plan Of Care PT-OP-T Assessment and Plan Start: 09/08/20 17:47 Freq: Status: Active Protocol: Document 11/09/20 16:45 DCW (Rec: 11/09/20 17:31 DCW [id number]) Physical Therapy Assessment Impairments Impairments Functional Activities, Functional Mobility,Gait,Pain, ROM,Soft Tissue Mobility, Strength Goals Three Impairment Tenderness and tone along TFL and ITB [facility] Goal (LTG) Pt to note no tenderness in area of TFL during a two mile run LTG Duration 01/07/21 Two Impairment Pt presents with a 3 cm R LLD [facility] Goal (LTG) Pt to wear heel lift in right shoe 75% of the time over two weeks to determine if there is a change in her symptoms. LTG Duration Met One Impairment Pt does not have an appropriate home exercise program Short Term Goal (STG) Pt to be independent and compliant with an appropriate HEP STG Duration Met Progress Towards Goals Progress Towards Goals Progressing Toward Goals Assessment Summary Assessment Pt making good progress, has increased activity level with no complaints of return of pain. ITB significantly less tone. Continue skilled PT in order to help patient return fully to prior level of function. Physical Therapy Plan Frequency and Duration Frequency of Treatment 1-2x/week Duration of Treatment 2 months Plan of Care Start Date 11/09/20 Plan of Care End Date 01/07/21 Therapeutic Interventions Therapeutic Interventions Gait Training,Home Exercise Program,Joint Mobilizations, Manual Therapy,Patient/ Caregiver Education,Self-Care/ Home Management,Soft Tissue Mobilization,Therapeutic Activities,Therapeutic Exercises Next Visit Focus/Plan Next Note Type Treatment Note Next Visit Plan Hip strengthening, STM, Flexibility Plan of Care Dates Plan of Care Start Date 11/09/20 Plan of Care End Date 01/07/21 Electronically Signed by: Mook Harkins, MARBIN 11/09/20 [id number] Please Sign and Return: I have reviewed this Plan of Care and certify that the skilled therapy services above are required to meet the patient?s needs. Physician Signature Date Printed Name and Credentials Clinical Instructor Signature Printed Name and Credentials
--- NOTE | 2020-11-09 17:34 | PT.OPPOC ---
Physical, Occupational & Speech Therapy At [facility] Current Diagnoses Pain in left hip (11/09/20) Stiffness of right hip, not elsewhere classified (11/09/20) Muscle weakness (generalized) (11/09/20) Trochanteric bursitis, right hip (11/09/20) Visit Care Team Role Provider Type Caden Gimenez MD Attending Provider Physician Family Provider Primary Care Provider Referring Provider Specialty: Family Practice Address: [address] [place] [address], [facility] Email: [email or web address] Plan Of Care PT-OP-T Assessment and Plan Start: 09/08/20 17:47 Freq: Status: Active Protocol: Document 11/09/20 16:45 DCW (Rec: 11/09/20 17:31 DCW [id number]) Physical Therapy Assessment Impairments Impairments Functional Activities, Functional Mobility,Gait,Pain, ROM,Soft Tissue Mobility, Strength Goals Three Impairment Tenderness and tone along TFL and ITB [facility] Goal (LTG) Pt to note no tenderness in area of TFL during a two mile run LTG Duration 01/07/21 Two Impairment Pt presents with a 3 cm R LLD [facility] Goal (LTG) Pt to wear heel lift in right shoe 75% of the time over two weeks to determine if there is a change in her symptoms. LTG Duration Met One Impairment Pt does not have an appropriate home exercise program Short Term Goal (STG) Pt to be independent and compliant with an appropriate HEP STG Duration Met Progress Towards Goals Progress Towards Goals Progressing Toward Goals Assessment Summary Assessment Pt making good progress, has increased activity level with no complaints of return of pain. ITB significantly less tone. Continue skilled PT in order to help patient return fully to prior level of function. Physical Therapy Plan Frequency and Duration Frequency of Treatment 1-2x/week Duration of Treatment 2 months Plan of Care Start Date 11/09/20 Plan of Care End Date 01/07/21 Therapeutic Interventions Therapeutic Interventions Gait Training,Home Exercise Program,Joint Mobilizations, Manual Therapy,Patient/ Caregiver Education,Self-Care/ Home Management,Soft Tissue Mobilization,Therapeutic Activities,Therapeutic Exercises Next Visit Focus/Plan Next Note Type Treatment Note Next Visit Plan Hip strengthening, STM, Flexibility Plan of Care Dates Plan of Care Start Date 11/09/20 Plan of Care End Date 01/07/21 Electronically Signed by: Mook Harkins, MARBIN 11/09/20 2091 Please Sign and Return: I have reviewed this Plan of Care and certify that the skilled therapy services above are required to meet the patient?s needs. Physician Signature Date Printed Name and Credentials Clinical Instructor Signature Printed Name and Credentials
--- NOTE | 2020-11-16 17:39 | PT.OTN ---
Current Diagnoses Pain in left hip (11/16/20) Stiffness of right hip, not elsewhere classified (11/16/20) Muscle weakness (generalized) (11/16/20) Trochanteric bursitis, right hip (11/16/20) Physical Therapy Treatment Note PT-OP-A Visit Information Start: 09/08/20 17:47 Freq: Status: Active Protocol: Document 11/16/20 16:45 DCW (Rec: 11/16/20 17:39 DCW [id number]) Out-Patient Physical Therapy Visit Information Visit Information Visit Type Treatment Note Visit Start Time 16:45 Visit Stop Time 17:30 Total Visit Minutes 45 Visit Number 9 Number of CONSOLIDATION ACCOUNTANT Visits 0 Evaluation Information Evaluation Date 09/08/20 PT-OP-B Current Condition Start: 09/08/20 17:47 Freq: Status: Active Protocol: Document 09/08/20 16:45 DCW (Rec: 09/09/20 12:45 DCW [id number]) Current Condition History of Current Condition Onset Date 2006 Current Complaints Hip pain, stiffness History of Current Condition Pt is a 35 year old female presenting with a 13 year history of intermittent hip pain. Pt notes it began bothering her in 2006 after she left the [employer]. Pt reports there was no initial injury, and she is not aware of any activity that seems to make things worse, it just comes and goes. Pt notes that when she is already sore, running makes it worse, and standing up after an extended period of time sitting also give her problems. Notes her pain is fairly point specific around her right Iliac crest. Reports the pain feels like more of a burning, and is fairly superficial. PT-OP-C Subjective Start: 09/08/20 17:47 Freq: Status: Active Protocol: Document 11/16/20 16:45 DCW (Rec: 11/16/20 17:39 DCW [id number]) OP-PT Subjective Patient Comments Patient Comments Some twinges after her recent travel, but other than that, no pain. PT-OP-F Manual Assessment Start: 09/08/20 17:47 Freq: Status: Active Protocol: Document 11/09/20 16:45 DCW (Rec: 11/09/20 17:33 DCW [id number]) Manual Assessments Soft Tissue Assessment Soft Tissue Mobility Assessment 2/4 Tenderness to palpation: pain with wincing along right iliac crest soft tissue, B psoas, entire length of IT band. 3/4 Tenderness to palpation: wincing and withdraw along bilateral adductors PT-OP-L Special Tests Start: 09/08/20 17:47 Freq: Status: Active Protocol: Document 11/09/20 16:45 DCW (Rec: 11/09/20 17:33 DCW [id number]) Special Tests Knee Special Tests Guillermina's Test Test Results Negative PT-OP-M Strength Start: 09/08/20 17:47 Freq: Status: Active Protocol: Document 11/09/20 16:45 DCW (Rec: 11/09/20 17:33 DCW [id number]) Hip Strength Hip Manual Muscle Testing Right Flexion (L2) 4+ Good+ Abduction 4 Good External Rotation 5 Normal Internal Rotation 4+ Good+ PT-OP-Q Treatments Start: 09/08/20 17:47 Freq: Status: Active Protocol: Document 11/16/20 16:45 DCW (Rec: 11/16/20 17:39 DCW [id number]) Gym Equipment Shuttle Balance Red Details Lateral weight shift, staggered ball toss Sport Cord 1 Exercise Details SLS vs lateral resistance Cord/Resistance Red Manual Therapy Treatment Soft Tissue Mobilization 3 Body Location Distal Adductors 2 Body Location B TFL/ITB Mobilization Type Strumming,Sustained Pressure Intensity/Depth Moderate 1 Body Location B Psoas Mobilization Type Sustained Pressure Intensity/Depth Deep PT-OP-R Modalities Start: 09/08/20 17:47 Freq: Status: Active Protocol: Document 11/16/20 16:45 DCW (Rec: 11/16/20 17:39 DCW [id number]) Electric Stimulation Electric Stimulation [place] Stimulation Body Location R Glute Med Duration (Minutes) 10 Ramp 2.0 Patient Position Sidelying Comments Cycle: 4 on/12 off AROM - Hip Abduction PT-OP-T Assessment and Plan Start: 09/08/20 17:47 Freq: Status: Active Protocol: Document 11/16/20 16:45 DCW (Rec: 11/16/20 17:39 DCW [id number]) Physical Therapy Assessment Impairments Impairments Functional Activities, Functional Mobility,Gait,Pain, ROM,Soft Tissue Mobility, Strength Goals Three Impairment Tenderness and tone along TFL and ITB Instrument Calibrator Goal (LTG) Pt to note no tenderness in area of TFL during a two mile run LTG Duration 01/07/21 Two Impairment Pt presents with a 3 cm R LLD Skilled Nursing Goal (LTG) Pt to wear heel lift in right shoe 75% of the time over two weeks to determine if there is a change in her symptoms. LTG Duration Met One Impairment Pt does not have an appropriate home exercise program Short Term Goal (STG) Pt to be independent and compliant with an appropriate HEP STG Duration Met Progress Towards Goals Progress Towards Goals Progressing Toward Goals Assessment Summary Assessment Pt still hasn't really tried to go out running at all due to recent bad weather, hoping to get out over the weekend and see how her hip feels. Physical Therapy Plan Frequency and Duration Frequency of Treatment 1-2x/week Duration of Treatment 2 months Plan of Care Start Date 11/09/20 Plan of Care End Date 01/07/21 Therapeutic Interventions Therapeutic Interventions Gait Training,Home Exercise Program,Joint Mobilizations, Manual Therapy,Patient/ Caregiver Education,Self-Care/ Home Management,Soft Tissue Mobilization,Therapeutic Activities,Therapeutic Exercises Next Visit Focus/Plan Next Note Type Treatment Note Next Visit Plan Hip strengthening, STM, Flexibility
--- NOTE | 2020-11-23 17:37 | PT.OTN ---
Current Diagnoses Pain in left hip (11/23/20) Stiffness of right hip, not elsewhere classified (11/23/20) Muscle weakness (generalized) (11/23/20) Trochanteric bursitis, right hip (11/23/20) Physical Therapy Treatment Note PT-OP-A Visit Information Start: 09/08/20 17:47 Freq: Status: Active Protocol: Document 11/23/20 16:45 DCW (Rec: 11/23/20 17:37 DCW [id number]) Out-Patient Physical Therapy Visit Information Visit Information Visit Type Treatment Note Visit Start Time 16:45 Visit Stop Time 17:30 Total Visit Minutes 45 Visit Number 9 Number of HEEL MOLDER Visits 0 Evaluation Information Evaluation Date 09/08/20 PT-OP-B Current Condition Start: 09/08/20 17:47 Freq: Status: Active Protocol: Document 09/08/20 16:45 DCW (Rec: 09/09/20 12:45 DCW [id number]) Current Condition History of Current Condition Onset Date 2006 Current Complaints Hip pain, stiffness History of Current Condition Pt is a 35 year old female presenting with a 13 year history of intermittent hip pain. Pt notes it began bothering her in 2006 after she left the [employer]. Pt reports there was no initial injury, and she is not aware of any activity that seems to make things worse, it just comes and goes. Pt notes that when she is already sore, running makes it worse, and standing up after an extended period of time sitting also give her problems. Notes her pain is fairly point specific around her right Iliac crest. Reports the pain feels like more of a burning, and is fairly superficial. PT-OP-C Subjective Start: 09/08/20 17:47 Freq: Status: Active Protocol: Document 11/23/20 16:45 DCW (Rec: 11/23/20 17:37 DCW [id number]) OP-PT Subjective Patient Comments Patient Comments Reports she helped her friends move on Sunday, and her hip felt good afterward. Also tried some slow running on her treadmill, and had no flair- up. PT-OP-F Manual Assessment Start: 09/08/20 17:47 Freq: Status: Active Protocol: Document 11/09/20 16:45 DCW (Rec: 11/09/20 17:33 DCW [id number]) Manual Assessments Soft Tissue Assessment Soft Tissue Mobility Assessment 2/4 Tenderness to palpation: pain with wincing along right iliac crest soft tissue, B psoas, entire length of IT band. 3/4 Tenderness to palpation: wincing and withdraw along bilateral adductors PT-OP-L Special Tests Start: 09/08/20 17:47 Freq: Status: Active Protocol: Document 11/09/20 16:45 DCW (Rec: 11/09/20 17:33 DCW [id number]) Special Tests Knee Special Tests Guillermina's Test Test Results Negative PT-OP-M Strength Start: 09/08/20 17:47 Freq: Status: Active Protocol: Document 11/09/20 16:45 DCW (Rec: 11/09/20 17:33 DCW [id number]) Hip Strength Hip Manual Muscle Testing Right Flexion (L2) 4+ Good+ Abduction 4 Good External Rotation 5 Normal Internal Rotation 4+ Good+ PT-OP-Q Treatments Start: 09/08/20 17:47 Freq: Status: Active Protocol: Document 11/23/20 16:45 DCW (Rec: 11/23/20 17:37 DCW [id number]) Gym Equipment Shuttle Balance Red Details Lateral weight shift, staggered ball toss Sport Cord 2 Exercise Details Lateral step-up onto BOSU Cord/Resistance Blue 1 Exercise Details SLS vs lateral resistance Cord/Resistance Blue Manual Therapy Treatment Soft Tissue Mobilization 3 Body Location Distal Adductors 2 Body Location B TFL/ITB Mobilization Type Strumming,Sustained Pressure Intensity/Depth Moderate 1 Body Location B Psoas Mobilization Type Sustained Pressure Intensity/Depth Deep PT-OP-R Modalities Start: 09/08/20 17:47 Freq: Status: Active Protocol: Document 11/16/20 16:45 DCW (Rec: 11/16/20 17:39 DCW [id number]) Electric Stimulation Electric Stimulation [place] Stimulation Body Location R Glute Med Duration (Minutes) 10 Ramp 2.0 Patient Position Sidelying Comments Cycle: 4 on/12 off AROM - Hip Abduction PT-OP-T Assessment and Plan Start: 09/08/20 17:47 Freq: Status: Active Protocol: Document 11/23/20 16:45 DCW (Rec: 11/23/20 17:37 DCW [id number]) Physical Therapy Assessment Impairments Impairments Functional Activities, Functional Mobility,Gait,Pain, ROM,Soft Tissue Mobility, Strength Goals Three Impairment Tenderness and tone along TFL and ITB Senior Recruitment Consultant Goal (LTG) Pt to note no tenderness in area of TFL during a two mile run LTG Duration 01/07/21 Two Impairment Pt presents with a 3 cm R LLD Senior Recruitment Consultant Goal (LTG) Pt to wear heel lift in right shoe 75% of the time over two weeks to determine if there is a change in her symptoms. LTG Duration Met One Impairment Pt does not have an appropriate home exercise program Short Term Goal (STG) Pt to be independent and compliant with an appropriate HEP STG Duration Met Progress Towards Goals Progress Towards Goals Progressing Toward Goals Assessment Summary Assessment Showing improvement with Glute med contraction. Overall feels like she is having less pain, but it has always been more come and go anyway. Physical Therapy Plan Frequency and Duration Frequency of Treatment 1-2x/week Duration of Treatment 2 months Plan of Care Start Date 11/09/20 Plan of Care End Date 01/07/21 Therapeutic Interventions Therapeutic Interventions Gait Training,Home Exercise Program,Joint Mobilizations, Manual Therapy,Patient/ Caregiver Education,Self-Care/ Home Management,Soft Tissue Mobilization,Therapeutic Activities,Therapeutic Exercises Next Visit Focus/Plan Next Note Type Treatment Note Next Visit Plan Hip strengthening, STM, Flexibility
--- NOTE | 2020-11-30 17:27 | PT.OTN ---
Current Diagnoses Pain in left hip (11/30/20) Stiffness of right hip, not elsewhere classified (11/30/20) Muscle weakness (generalized) (11/30/20) Trochanteric bursitis, right hip (11/30/20) Physical Therapy Treatment Note PT-OP-A Visit Information Start: 09/08/20 17:47 Freq: Status: Active Protocol: Document 11/30/20 16:45 DCW (Rec: 11/30/20 17:26 DCW [id number]) Out-Patient Physical Therapy Visit Information Visit Information Visit Type Treatment Note Visit Start Time 16:45 Visit Stop Time 17:30 Total Visit Minutes 45 Visit Number 10 Number of TESTER WAFER SUBSTRATE Visits 0 Evaluation Information Evaluation Date 09/08/20 PT-OP-B Current Condition Start: 09/08/20 17:47 Freq: Status: Active Protocol: Document 09/08/20 16:45 DCW (Rec: 09/09/20 12:45 DCW [id number]) Current Condition History of Current Condition Onset Date 2006 Current Complaints Hip pain, stiffness History of Current Condition Pt is a 35 year old female presenting with a 13 year history of intermittent hip pain. Pt notes it began bothering her in 2006 after she left the [employer]. Pt reports there was no initial injury, and she is not aware of any activity that seems to make things worse, it just comes and goes. Pt notes that when she is already sore, running makes it worse, and standing up after an extended period of time sitting also give her problems. Notes her pain is fairly point specific around her right Iliac crest. Reports the pain feels like more of a burning, and is fairly superficial. PT-OP-C Subjective Start: 09/08/20 17:47 Freq: Status: Active Protocol: Document 11/30/20 16:45 DCW (Rec: 11/30/20 17:26 DCW [id number]) OP-PT Subjective Patient Comments Patient Comments Pt overall feeling pretty good , no instances of pain recently. PT-OP-F Manual Assessment Start: 09/08/20 17:47 Freq: Status: Active Protocol: Document 11/09/20 16:45 DCW (Rec: 11/09/20 17:33 DCW [id number]) Manual Assessments Soft Tissue Assessment Soft Tissue Mobility Assessment 2/4 Tenderness to palpation: pain with wincing along right iliac crest soft tissue, B psoas, entire length of IT band. 3/4 Tenderness to palpation: wincing and withdraw along bilateral adductors PT-OP-L Special Tests Start: 09/08/20 17:47 Freq: Status: Active Protocol: Document 11/09/20 16:45 DCW (Rec: 11/09/20 17:33 DCW [id number]) Special Tests Knee Special Tests Guillermina's Test Test Results Negative PT-OP-M Strength Start: 09/08/20 17:47 Freq: Status: Active Protocol: Document 11/09/20 16:45 DCW (Rec: 11/09/20 17:33 DCW [id number]) Hip Strength Hip Manual Muscle Testing Right Flexion (L2) 4+ Good+ Abduction 4 Good External Rotation 5 Normal Internal Rotation 4+ Good+ PT-OP-Q Treatments Start: 09/08/20 17:47 Freq: Status: Active Protocol: Document 11/30/20 16:45 DCW (Rec: 11/30/20 17:26 DCW [id number]) Gym Equipment Sport Cord 2 Exercise Details Lateral step-up onto BOSU Cord/Resistance Blue 1 Exercise Details SLS vs lateral resistance Cord/Resistance Blue Manual Therapy Treatment Soft Tissue Mobilization 3 Body Location Distal Adductors 2 Body Location B TFL/ITB Mobilization Type Strumming,Sustained Pressure Intensity/Depth Moderate 1 Body Location B Psoas Mobilization Type Sustained Pressure Intensity/Depth Deep PT-OP-R Modalities Start: 09/08/20 17:47 Freq: Status: Active Protocol: Document 11/16/20 16:45 DCW (Rec: 11/16/20 17:39 DCW [id number]) Electric Stimulation Electric Stimulation Citizen Of [place] Stimulation Body Location R Glute Med Duration (Minutes) 10 Ramp 2.0 Patient Position Sidelying Comments Cycle: 4 on/12 off AROM - Hip Abduction PT-OP-T Assessment and Plan Start: 09/08/20 17:47 Freq: Status: Active Protocol: Document 11/30/20 16:45 DCW (Rec: 11/30/20 17:26 DCW [id number]) Physical Therapy Assessment Impairments Impairments Functional Activities, Functional Mobility,Gait,Pain, ROM,Soft Tissue Mobility, Strength Goals Three Impairment Tenderness and tone along TFL and ITB Fdc Goal (LTG) Pt to note no tenderness in area of TFL during a two mile run LTG Duration 01/07/21 Two Impairment Pt presents with a 3 cm R LLD Fdc Goal (LTG) Pt to wear heel lift in right shoe 75% of the time over two weeks to determine if there is a change in her symptoms. LTG Duration Met One Impairment Pt does not have an appropriate home exercise program Short Term Goal (STG) Pt to be independent and compliant with an appropriate HEP STG Duration Met Progress Towards Goals Progress Towards Goals Progressing Toward Goals Assessment Summary Assessment Pt still doing well overall. Pt planning to request further auth from her PCP, but then would like to hold therapy until she is able to get out and test her hip to see if she is still experiencing the same pain. Physical Therapy Plan Frequency and Duration Frequency of Treatment 1-2x/week Duration of Treatment 2 months Plan of Care Start Date 11/09/20 Plan of Care End Date 01/07/21 Therapeutic Interventions Therapeutic Interventions Gait Training,Home Exercise Program,Joint Mobilizations, Manual Therapy,Patient/ Caregiver Education,Self-Care/ Home Management,Soft Tissue Mobilization,Therapeutic Activities,Therapeutic Exercises Next Visit Focus/Plan Next Note Type Treatment Note Next Visit Plan Hip strengthening, STM, Flexibility
--- NOTE | 2021-04-12 15:00 | PT.OPDS ---
Current Diagnoses Pain in left hip (11/30/20) Stiffness of right hip, not elsewhere classified (11/30/20) Muscle weakness (generalized) (11/30/20) Trochanteric bursitis, right hip (11/30/20) Visit Care Team Role Provider Type Caden Gimenez MD Attending Provider Physician Family Provider Primary Care Provider Referring Provider Specialty: [facility] Practice Address: [address] [place] [address] Email: [email or web address] Visit Number Visit Number 10 Discharge Summary PT-OP-B Current Condition Start: 09/08/20 17:47 Freq: Status: Active Protocol: Document 09/08/20 16:45 DCW (Rec: 09/09/20 12:45 DCW [id number]) Current Condition History of Current Condition Onset Date 2006 Current Complaints Hip pain, stiffness History of Current Condition Pt is a 35 year old female presenting with a 13 year history of intermittent hip pain. Pt notes it began bothering her in 2006 after she left the [employer]. Pt reports there was no initial injury, and she is not aware of any activity that seems to make things worse, it just comes and goes. Pt notes that when she is already sore, running makes it worse, and standing up after an extended period of time sitting also give her problems. Notes her pain is fairly point specific around her right Iliac crest. Reports the pain feels like more of a burning, and is fairly superficial. PT-OP-C Subjective Start: 09/08/20 17:47 Freq: Status: Active Protocol: Document 11/30/20 16:45 DCW (Rec: 11/30/20 17:26 DCW [id number]) OP-PT Subjective Patient Comments Patient Comments Pt overall feeling pretty good , no instances of pain recently. PT-OP-F Manual Assessment Start: 09/08/20 17:47 Freq: Status: Active Protocol: Document 11/09/20 16:45 DCW (Rec: 11/09/20 17:33 DCW [id number]) Manual Assessments Soft Tissue Assessment Soft Tissue Mobility Assessment 2/4 Tenderness to palpation: pain with wincing along right iliac crest soft tissue, B psoas, entire length of IT band. 3/4 Tenderness to palpation: wincing and withdraw along bilateral adductors PT-OP-L Special Tests Start: 09/08/20 17:47 Freq: Status: Active Protocol: Document 11/09/20 16:45 DCW (Rec: 11/09/20 17:33 DCW [id number]) Special Tests Knee Special Tests Guillermina's Test Test Results Negative PT-OP-M Strength Start: 09/08/20 17:47 Freq: Status: Active Protocol: Document 11/09/20 16:45 DCW (Rec: 11/09/20 17:33 DCW [id number]) Hip Strength Hip Manual Muscle Testing Right Flexion (L2) 4+ Good+ Abduction 4 Good External Rotation 5 Normal Internal Rotation 4+ Good+ PT-OP-T Assessment and Plan Start: 09/08/20 17:47 Freq: Status: Active Protocol: Document 04/12/21 14:59 DCW (Rec: 04/12/21 15:00 DCW [id number]) Physical Therapy Assessment Assessment Summary Assessment Pt has now not been seen in more than four months, will be discharged from skilled therapy at this time. Pt will require a new referral in order to return to therapy. Physical Therapy Plan Discharge Physical Therapy Discharge Reasons No Longer Attending PT Next Visit Focus/Plan Next Note Type Discharge Summary
== END 2021-04-13 11:08 | disposition home or self-care (01) ==
LOC: PHYS 16:45
PROVIDERS: Family Provider Family Medicine; PCP Family Medicine; Referring Provider Family Medicine; Visit Provider Family Medicine
DX: M70.61 Trochanteric bursitis, right hip (principal); M62.81 Muscle weakness (generalized); M25.651 Stiffness of right hip, not elsewhere classified; M25.552 Pain in left hip
CPT/HCPCS: 97032; 97110; 97140; 97161

== ENCOUNTER → 2021-01-21 09:58 | Outpatient (CLI) | payer OTHER, SELFPAY ==
--- NOTE | 2021-01-21 09:59 | DI.RAD.S_ITS ---
PROCEDURE: XR SHOULDER RT MIN 2V INDICATIONS: Right shoulder dislocation and subluxation TECHNIQUE: 3 views of the shoulder were acquired. COMPARISON: None. FINDINGS: Bones: No fractures or dislocations. No suspicious bony lesions. Visualized ribs appear intact. Soft tissues: No suspicious soft tissue calcifications. IMPRESSION: No trauma found. No significant degenerative change. Dictated by: Tyler Fletcher M.D. on 01/21/2021 at 11:25 Approved by: Tyler Fletcher M.D. on 01/21/2021 at 11:26
== END ==
PROVIDERS: Family Provider Family Medicine; PCP Family Medicine; Referring Provider Family Medicine; Visit Provider Family Medicine
DX: S43.014A Anterior dislocation of right humerus, initial encounter (principal); S43.001A Unspecified subluxation of right shoulder joint, initial encounter; X58.XXXA Exposure to other specified factors, initial encounter
CPT/HCPCS: 73030

== ENCOUNTER → 2021-02-11 18:21 | Outpatient (CLI) | payer OTHER, SELFPAY ==
--- NOTE | 2021-02-11 18:23 | DI.MRI.S_ITS ---
PROCEDURE: MR SHOULDER RT WO CON INDICATIONS: Right shoulder dislocation and subluxation TECHNIQUE: Noncontrast oblique coronal T2 fast spin echo with fat saturation, oblique sagittal T1 spin echo and T2 fast spin echo with fat saturation, axial T1 spin echo and T2 fast spin echo with fat saturation through the shoulder. COMPARISON: [facility], CR, XR SHOULDER RT MIN 2V, 01/21/2021, 9:59. FINDINGS: Image quality: Excellent. Rotator cuff: The supraspinatus, infraspinatus, subscapularis, and teres minor appear intact. Sagittal images demonstrate no fatty muscle atrophy. Bones and bursae: There is a mildly depressed impaction fracture of the posterolateral humeral head consistent with a Hill-Sachs lesion. There is mild underlying bone marrow edema suggestive of an acute or subacute process. No discrete corresponding bony Bankart fracture identified. There is moderate acromioclavicular joint degeneration with periarticular bone marrow edema along the distal clavicle and mild capsular hypertrophy. The acromion demonstrates slight lateral downsloping, without an os acromiale. Minimal subacromial-subdeltoid bursal fluid is present. Capsule and soft tissues: There is intermediate signal within the anterior and anteroinferior labrum suggestive of mild tearing which is incompletely evaluated in the absence of intra-articular contrast. The long head of the biceps tendon demonstrates normal location and morphology. The rotator interval appears normal, without fibrosis. The coracohumeral ligament is normal in thickness. IMPRESSION: 1. Mildly depressed Hill-Sachs lesion of the humeral head with associated mild underlying bone marrow edema consistent with sequelae of prior anterior shoulder dislocation. No discrete bony Bankart fracture identified. 2. Intermediate signal within the anterior and anteroinferior labrum suggestive of mild tearing, with evaluation limited in the absence of intra-articular contrast. 3. Moderate acromioclavicular joint degeneration including periarticular edema within the distal clavicle. Slight lateral downsloping of the acromion is also present. 4. Minimal subacromial/subdeltoid bursal fluid. Dictated by: Hernando Felix M.D. on 02/14/2021 at 10:59 Approved by: Hernando Felix M.D. on 02/14/2021 at 11:21
== END ==
PROVIDERS: Family Provider Family Medicine; PCP Family Medicine; Referring Provider Family Medicine; Visit Provider Family Medicine
DX: S43.014A Anterior dislocation of right humerus, initial encounter (principal); S43.001A Unspecified subluxation of right shoulder joint, initial encounter; S42.291A Other displaced fracture of upper end of right humerus, initial encounter for closed fracture; X58.XXXA Exposure to other specified factors, initial encounter
CPT/HCPCS: 73221

== ENCOUNTER → 2021-07-29 11:47 | Outpatient (CLI) | payer OTHER, SELFPAY ==
[2021-07-29] MEDS: COVID-19 VACC #3, MRNA(MOD) 50 MCG/0.25 ML VIAL IM (11:53)
== END ==
PROVIDERS: Family Provider Family Medicine; Visit Provider Internal Medicine
DX: Z23 Encounter for immunization (principal)
CPT/HCPCS: 0013A; 91301

== ENCOUNTER 2022-05-03 16:45 | Outpatient (RCR) | payer OTHER, SELFPAY ==
--- NOTE | 2021-12-19 16:05 | PT.OIE ---
Current Diagnoses Pain in right shoulder (12/19/21) Stiffness of right shoulder, not elsewhere classified (12/19/21) Encounter for other orthopedic aftercare (12/19/21) Past Medical History (Last Updated 01/21/21 @ 09:43 by Caden Gimenez MD) Anterior dislocation of right shoulder Fractures Shoulder subluxation (~2007) Shoulder subluxation, right Trochanteric bursitis of right hip Visit Care Team Role Provider Type Caden Gimenez MD Family Provider Physician Primary Care Provider Specialty: Family Practice Address: [address] [place] [address], [id number] Email: [email or web address] Cesar Hancock MD Attending Provider Non-Staff Referring Provider Specialty: Orthopedics Address: [address] [place] [address], [id number] Email: Physical Therapy Initial Evaluation PT-OP-A Visit Information Start: 12/19/21 10:24 Freq: Status: Active Protocol: Document 12/19/21 09:45 DCW (Rec: 12/19/21 10:28 DCW [id number]) Out-Patient Physical Therapy Visit Information Visit Information Visit Type Initial Evaluation Visit Start Time 09:45 Visit Stop Time 10:20 Total Visit Minutes 35 Visit Number 1 Number of DISTRICT SALES MANAGER Visits 0 Evaluation Information Evaluation Date 12/19/21 PT-OP-B Current Condition Start: 12/19/21 10:24 Freq: Status: Active Protocol: Document 12/19/21 09:45 DCW (Rec: 12/19/21 11:51 DC [id number]) Current Condition History of Current Condition Onset Date 11/03/21 Current Complaints s/p R Bankart repair History of Current Condition Pt is a 36 year old female presenting to skilled therapy six weeks s/p R Bankart repair following history of anterior shoulder dislocation. Pt reports she has been wearing a sling up until one week ago, when she had her post-op follow-up and was told she could remove it. Pt has been performing pendulums and PROM exercises at home. Experiences occasional pain at a/c joint with extended dangling of arm or reaching forward, notes this was an issue prior to dislocation. Pt presents with right shoulder stiffness and weakness. Most notable with posterior shoulder pain with reaching cross-body. Notes desire to return to performing overhead activities, get back to 100%. PT-OP-C Subjective Start: 12/19/21 10:24 Freq: Status: Active Protocol: Document 12/19/21 09:45 DCW (Rec: 12/19/21 10:28 DCW [id number]) OP-PT Subjective Patient Comments Patient Comments I have been doing the pendulums and stuff like that when I had the sling on, but I got rid of the sling last week after my post-op follow- up. Patient Questionnaires Quick Dash- Upper Extremity Quick Dash UE Score 38.64% Quick Dash UE Impairment 20 to 39% Impaired (Score 20- 39) PT-OP-E Functional Tests Start: 12/19/21 10:24 Freq: Status: Active Protocol: Document 12/19/21 09:45 DCW (Rec: 12/19/21 11:53 DCW [id number]) Functional Tests Apley's Scratch Test Action 1- Left Posterior opposite shoulder Action 1- Right Anterior opposite shoulder Action 2- Left T5 Action 2- Right C4 Action 3- Left T 6 Action 3- Right Right SI PT-OP-F Manual Assessment Start: 12/19/21 11:54 Freq: Status: Active Protocol: Document 12/19/21 09:45 DCW (Rec: 12/19/21 11:55 DCW [id number]) Manual Assessments Soft Tissue Assessment Soft Tissue Mobility Assessment Moderate tone with tenderness to palpation 2/4: Pain with wincing along right subscap. Increased tone due to compensatory movements in right upper trap and levator scap. PT-OP-K Range of Motion Start: 12/19/21 10:24 Freq: Status: Active Protocol: Document 12/19/21 09:45 DCW (Rec: 12/19/21 11:53 DCW [id number]) Shoulder Goniometric Range of Motion Shoulder Right Passive Shoulder ROM WFL No Testing Position Supine Flexion 120 Abduction 95 External Rotation at 0 degrees Abduction 0 Right Active Shoulder ROM WFL No Testing Position Sitting Flexion 111 Abduction 89 External Rotation at 0 degrees Abduction 0 Internal Rotation Behind Back (text) R SI PT-OP-M Strength Start: 12/19/21 10:24 Freq: Status: Active Protocol: Document 12/19/21 09:45 DCW (Rec: 12/19/21 11:53 DCW [id number]) Shoulder Strength Shoulder Manual Muscle Testing Right Flexion 3- Fair- Abduction (C5) 3- Fair- External Rotation 2+ Poor+ Internal Rotation 4- Good- PT-OP-Q Treatments Start: 12/19/21 10:24 Freq: Status: Active Protocol: Document 12/19/21 09:45 DCW (Rec: 12/19/21 10:29 DCW [id number]) Cardio Equipment Upper Body Ergometer (UBE) Duration (Minutes) 3 Seat Position 12 Height 2.5 Therapeutic Exercises Supine Exercises 1 Supine Exercise Name AAROM shoulder flexion/ abduction /c PVC Side right Sitting Exercises 1 Sitting Exercise Name AAROM shoulder ER /c PVC Side right PT-OP-T Assessment and Plan Start: 12/19/21 10:24 Freq: Status: Active Protocol: Document 12/19/21 09:45 DCW (Rec: 12/19/21 16:05 DCW [id number]) Physical Therapy Assessment Rehab Potential Rehabilitation Potential Excellent Evaluation Complexity Number of Personal Factors/Comorbidities 0 Number of Body Systems Impaired 1-2 Clinical Presentation at Evaluation Stable Impairments Impairments Functional Activities, Functional Mobility,Pain,ROM, Soft Tissue Mobility,Strength, Tone Goals Two Impairment Pt unable to perform overhead activities Half-Way Goal (LTG) Pt to demonstrate AROM right shoulder flexion and abduction >160? in order to return to her usual high-level hobby activities LTG Duration 02/18/22 One Impairment Pt does not have an appropriate home exercise program Short Term Goal (STG) Pt to be independent and compliant with an appropriate HEP STG Duration 01/19/22 Assessment Summary Assessment Pt presents with expected limited ROM and weakness six weeks s/p R Bankart repair following anterior right shoulder dislocation. Pt is fairly restricted with right ROM and strength, experiences increased pain with cross-body reaching. Pt should benefit from skilled therapy to improve pain, ROM, and strength following post-op protocol. Physical Therapy Plan Frequency and Duration Frequency of Treatment 2x/Week Duration of Treatment Two months Plan of Care Start Date 12/19/21 Plan of Care End Date 02/18/22 Therapeutic Interventions Therapeutic Interventions Aquatic Therapy,Home Exercise Program,Joint Mobilizations, Manual Therapy,Neuromuscular Re-education,Patient/Caregiver Education,Self-Care/Home Management,Soft Tissue Mobilization,Therapeutic Activities,Therapeutic Exercises Modalities Cold Pack/Ice Massage,Electric Stimulation,Hot Packs, Ultrasound Next Visit Focus/Plan Next Note Type Treatment Note Next Visit Plan R shoulder ROM, strength
--- NOTE | 2021-12-19 16:05 | PT.OPPOC ---
Physical, Occupational & Speech Therapy At [facility] Current Diagnoses Pain in right shoulder (12/19/21) Stiffness of right shoulder, not elsewhere classified (12/19/21) Encounter for other orthopedic aftercare (12/19/21) Visit Care Team Role Provider Type Caden Gimenez MD Family Provider Physician Primary Care Provider Specialty: Family Practice Address: [address] [place] [address], [address] Email: [email or web address] Cesar Hancock MD Attending Provider Non-Staff Referring Provider Specialty: Orthopedics Address: [address] [place] [address], [address] Email: Plan Of Care PT-OP-T Assessment and Plan Start: 12/19/21 10:24 Freq: Status: Active Protocol: Document 12/19/21 09:45 DCW (Rec: 12/19/21 16:05 DCW [id number]) Physical Therapy Assessment Rehab Potential Rehabilitation Potential Excellent Evaluation Complexity Number of Personal Factors/Comorbidities 0 Number of Body Systems Impaired 1-2 Clinical Presentation at Evaluation Stable Impairments Impairments Functional Activities, Functional Mobility,Pain,ROM, Soft Tissue Mobility,Strength, Tone Goals Two Impairment Pt unable to perform overhead activities Health Workers Goal (LTG) Pt to demonstrate AROM right shoulder flexion and abduction >160? in order to return to her usual high-level hobby activities LTG Duration 02/18/22 One Impairment Pt does not have an appropriate home exercise program Short Term Goal (STG) Pt to be independent and compliant with an appropriate HEP STG Duration 01/19/22 Assessment Summary Assessment Pt presents with expected limited ROM and weakness six weeks s/p R Bankart repair following anterior right shoulder dislocation. Pt is fairly restricted with right ROM and strength, experiences increased pain with cross-body reaching. Pt should benefit from skilled therapy to improve pain, ROM, and strength following post-op protocol. Physical Therapy Plan Frequency and Duration Frequency of Treatment 2x/Week Duration of Treatment Two months Plan of Care Start Date 12/19/21 Plan of Care End Date 02/18/22 Therapeutic Interventions Therapeutic Interventions Aquatic Therapy,Home Exercise Program,Joint Mobilizations, Manual Therapy,Neuromuscular Re-education,Patient/Caregiver Education,Self-Care/Home Management,Soft Tissue Mobilization,Therapeutic Activities,Therapeutic Exercises Modalities Cold Pack/Ice Massage,Electric Stimulation,Hot Packs, Ultrasound Next Visit Focus/Plan Next Note Type Treatment Note Next Visit Plan R shoulder ROM, strength Plan of Care Dates Plan of Care Start Date 12/19/21 Plan of Care End Date 02/18/22 Electronically Signed by: Mook Harkins, PT 12/19/21 [id number] Please Sign and Return: I have reviewed this Plan of Care and certify that the skilled therapy services above are required to meet the patient?s needs. Physician Signature Date Printed Name and Credentials Clinical Instructor Signature Printed Name and Credentials
--- NOTE | 2021-12-21 17:45 | PT.OTN ---
Current Diagnoses Pain in right shoulder (12/21/21) Stiffness of right shoulder, not elsewhere classified (12/21/21) Encounter for other orthopedic aftercare (12/21/21) Physical Therapy Treatment Note PT-OP-A Visit Information Start: 12/19/21 10:24 Freq: Status: Active Protocol: Document 12/21/21 16:45 DCW (Rec: 12/21/21 17:45 DCW [id number]) Out-Patient Physical Therapy Visit Information Visit Information Visit Type Treatment Note Visit Start Time 16:45 Visit Stop Time 17:30 Total Visit Minutes 45 Visit Number 2 Number of SEAFOOD MANAGER Visits 0 Evaluation Information Evaluation Date 12/19/21 PT-OP-B Current Condition Start: 12/19/21 10:24 Freq: Status: Active Protocol: Document 12/19/21 09:45 DCW (Rec: 12/19/21 11:51 DCW [id number]) Current Condition History of Current Condition Onset Date 11/03/21 Current Complaints s/p R Bankart repair History of Current Condition Pt is a 36 year old female presenting to skilled therapy six weeks s/p R Bankart repair following history of anterior shoulder dislocation. Pt reports she has been wearing a sling up until one week ago, when she had her post-op follow-up and was told she could remove it. Pt has been performing pendulums and PROM exercises at home. Experiences occasional pain at a/c joint with extended dangling of arm or reaching forward, notes this was an issue prior to dislocation. Pt presents with right shoulder stiffness and weakness. Most notable with posterior shoulder pain with reaching cross-body. Notes desire to return to performing overhead activities, get back to 100%. PT-OP-C Subjective Start: 12/19/21 10:24 Freq: Status: Active Protocol: Document 12/21/21 16:45 DCW (Rec: 12/21/21 17:45 DCW [id number]) OP-PT Subjective Patient Comments Patient Comments Pt notes her shoulder is feeling good today, the pain seems to be pretty random, some days worse, but today is good. PT-OP-E Functional Tests Start: 12/19/21 10:24 Freq: Status: Active Protocol: Document 12/19/21 09:45 DCW (Rec: 12/19/21 11:53 DCW [id number]) Functional Tests Apley's Scratch Test Action 1- Left Posterior opposite shoulder Action 1- Right Anterior opposite shoulder Action 2- Left T5 Action 2- Right C4 Action 3- Left T 6 Action 3- Right Right SI PT-OP-F Manual Assessment Start: 12/19/21 11:54 Freq: Status: Active Protocol: Document 12/19/21 09:45 DCW (Rec: 12/19/21 11:55 DCW [id number]) Manual Assessments Soft Tissue Assessment Soft Tissue Mobility Assessment Moderate tone with tenderness to palpation 2/4: Pain with wincing along right subscap. Increased tone due to compensatory movements in right upper trap and levator scap. PT-OP-K Range of Motion Start: 12/19/21 10:24 Freq: Status: Active Protocol: Document 12/19/21 09:45 DCW (Rec: 12/19/21 11:53 DCW [id number]) Shoulder Goniometric Range of Motion Shoulder Right Passive Shoulder ROM WFL No Testing Position Supine Flexion 120 Abduction 95 External Rotation at 0 degrees Abduction 0 Right Active Shoulder ROM WFL No Testing Position Sitting Flexion 111 Abduction 89 External Rotation at 0 degrees Abduction 0 Internal Rotation Behind Back (text) R SI PT-OP-M Strength Start: 12/19/21 10:24 Freq: Status: Active Protocol: Document 12/19/21 09:45 DCW (Rec: 12/19/21 11:53 DCW [id number]) Shoulder Strength Shoulder Manual Muscle Testing Right Flexion 3- Fair- Abduction (C5) 3- Fair- External Rotation 2+ Poor+ Internal Rotation 4- Good- PT-OP-Q Treatments Start: 12/19/21 10:24 Freq: Status: Active Protocol: Document 12/21/21 16:45 DCW (Rec: 12/21/21 17:45 DCW [id number]) Cardio Equipment Upper Body Ergometer (UBE) Duration (Minutes) 4 Seat Position 12 Height 2.5 Therapeutic Exercises Supine Exercises 3 Supine Exercise Name PT-directed shoulder PROM Side right 2 Supine Exercise Name Serratus punch Side bilateral Equipment Used PVC Sitting Exercises 2 Sitting Exercise Name GH Pulleys Side right Comments Flexion, Abduction Standing Exercises 2 Standing Exercise Name Shoulder ext /c PVC 1 Standing Exercise Name GH Pulleys Side right Comments IR Manual Therapy Treatment Soft Tissue Mobilization 1 Body Location R Subscapularis Mobilization Type Sustained Pressure Body Position Supine Joint Mobilizations 1 Joint R Scapulothoracic Direction Lateral Grade III Body Position Supine PT-OP-T Assessment and Plan Start: 12/19/21 10:24 Freq: Status: Active Protocol: Document 12/21/21 16:45 DCW (Rec: 12/21/21 17:45 DCW [id number]) Physical Therapy Assessment Impairments Impairments Functional Activities, Functional Mobility,Pain,ROM, Soft Tissue Mobility,Strength, Tone Goals Two Impairment Pt unable to perform overhead activities Real Time Operator Goal (LTG) Pt to demonstrate AROM right shoulder flexion and abduction >160? in order to return to her usual high-level hobby activities LTG Duration 02/18/22 One Impairment Pt does not have an appropriate home exercise program Short Term Goal (STG) Pt to be independent and compliant with an appropriate HEP STG Duration 01/19/22 Assessment Summary Assessment Pt tolerated treatment well, improving PROM, doing well with gentle AAROM/ strengthening. Physical Therapy Plan Frequency and Duration Frequency of Treatment 2x/Week Duration of Treatment Two months Plan of Care Start Date 12/19/21 Plan of Care End Date 02/18/22 Therapeutic Interventions Therapeutic Interventions Aquatic Therapy,Home Exercise Program,Joint Mobilizations, Manual Therapy,Neuromuscular Re-education,Patient/Caregiver Education,Self-Care/Home Management,Soft Tissue Mobilization,Therapeutic Activities,Therapeutic Exercises Modalities Cold Pack/Ice Massage,Electric Stimulation,Hot Packs, Ultrasound Next Visit Focus/Plan Next Note Type Treatment Note Next Visit Plan R shoulder ROM, strength
--- NOTE | 2021-12-26 10:30 | PT.OTN ---
Current Diagnoses Pain in right shoulder (12/26/21) Stiffness of right shoulder, not elsewhere classified (12/26/21) Encounter for other orthopedic aftercare (12/26/21) Physical Therapy Treatment Note PT-OP-A Visit Information Start: 12/19/21 10:24 Freq: Status: Active Protocol: Document 12/26/21 09:45 DCW (Rec: 12/26/21 10:30 DCW [id number]) Out-Patient Physical Therapy Visit Information Visit Information Visit Type Treatment Note Visit Start Time 09:45 Visit Stop Time 10:30 Total Visit Minutes 45 Visit Number 3 Number of CO FOUNDER AND CEO Visits 0 Evaluation Information Evaluation Date 12/19/21 PT-OP-B Current Condition Start: 12/19/21 10:24 Freq: Status: Active Protocol: Document 12/19/21 09:45 DCW (Rec: 12/19/21 11:51 DCW [id number]) Current Condition History of Current Condition Onset Date 11/03/21 Current Complaints s/p R Bankart repair History of Current Condition Pt is a 36 year old female presenting to skilled therapy six weeks s/p R Bankart repair following history of anterior shoulder dislocation. Pt reports she has been wearing a sling up until one week ago, when she had her post-op follow-up and was told she could remove it. Pt has been performing pendulums and PROM exercises at home. Experiences occasional pain at a/c joint with extended dangling of arm or reaching forward, notes this was an issue prior to dislocation. Pt presents with right shoulder stiffness and weakness. Most notable with posterior shoulder pain with reaching cross-body. Notes desire to return to performing overhead activities, get back to 100%. PT-OP-C Subjective Start: 12/19/21 10:24 Freq: Status: Active Protocol: Document 12/26/21 09:45 DCW (Rec: 12/26/21 10:30 DCW [id number]) OP-PT Subjective Patient Comments Patient Comments Pt notes she is not having pain in her shoulder today. PT-OP-E Functional Tests Start: 12/19/21 10:24 Freq: Status: Active Protocol: Document 12/19/21 09:45 DCW (Rec: 12/19/21 11:53 DCW [id number]) Functional Tests Apley's Scratch Test Action 1- Left Posterior opposite shoulder Action 1- Right Anterior opposite shoulder Action 2- Left T5 Action 2- Right C4 Action 3- Left T 6 Action 3- Right Right SI PT-OP-F Manual Assessment Start: 12/19/21 11:54 Freq: Status: Active Protocol: Document 12/19/21 09:45 DCW (Rec: 12/19/21 11:55 DCW [id number]) Manual Assessments Soft Tissue Assessment Soft Tissue Mobility Assessment Moderate tone with tenderness to palpation 2/4: Pain with wincing along right subscap. Increased tone due to compensatory movements in right upper trap and levator scap. PT-OP-K Range of Motion Start: 12/19/21 10:24 Freq: Status: Active Protocol: Document 12/19/21 09:45 DCW (Rec: 12/19/21 11:53 DCW [id number]) Shoulder Goniometric Range of Motion Shoulder Right Passive Shoulder ROM WFL No Testing Position Supine Flexion 120 Abduction 95 External Rotation at 0 degrees Abduction 0 Right Active Shoulder ROM WFL No Testing Position Sitting Flexion 111 Abduction 89 External Rotation at 0 degrees Abduction 0 Internal Rotation Behind Back (text) R SI PT-OP-M Strength Start: 12/19/21 10:24 Freq: Status: Active Protocol: Document 12/19/21 09:45 DCW (Rec: 12/19/21 11:53 DCW [id number]) Shoulder Strength Shoulder Manual Muscle Testing Right Flexion 3- Fair- Abduction (C5) 3- Fair- External Rotation 2+ Poor+ Internal Rotation 4- Good- PT-OP-Q Treatments Start: 12/19/21 10:24 Freq: Status: Active Protocol: Document 12/26/21 09:45 DCW (Rec: 12/26/21 10:30 DCW [id number]) Cardio Equipment Upper Body Ergometer (UBE) Duration (Minutes) 4 Seat Position 12 Height 2.5 Therapeutic Exercises Supine Exercises 4 Supine Exercise Name Horizontal Adduction Side bilateral 3 Supine Exercise Name PT-directed shoulder PROM Side right 2 Supine Exercise Name Serratus punch Side bilateral Equipment Used PVC 1 Supine Exercise Name AAROM shoulder flexion/ abduction /c PVC Side right Sidelying Exercises 1 Sidelying Exercise Name SL Shoulder ER Side right Standing Exercises 3 Standing Exercise Name Ball/wall circles 2 Standing Exercise Name Shoulder ext /c PVC Manual Therapy Treatment Soft Tissue Mobilization 1 Body Location R Subscapularis Mobilization Type Sustained Pressure Body Position Supine Joint Mobilizations 1 Joint R Scapulothoracic Direction Lateral Grade III Body Position Supine PT-OP-T Assessment and Plan Start: 12/19/21 10:24 Freq: Status: Active Protocol: Document 12/26/21 09:45 DCW (Rec: 12/26/21 10:30 DCW [id number]) Physical Therapy Assessment Impairments Impairments Functional Activities, Functional Mobility,Pain,ROM, Soft Tissue Mobility,Strength, Tone Goals Two Impairment Pt unable to perform overhead activities Intermediate Goal (LTG) Pt to demonstrate AROM right shoulder flexion and abduction >160? in order to return to her usual high-level hobby activities LTG Duration 02/18/22 One Impairment Pt does not have an appropriate home exercise program Short Term Goal (STG) Pt to be independent and compliant with an appropriate HEP STG Duration 01/19/22 Assessment Summary Assessment Pt showing some progress with improved ER, also demonstrating better shoulder girdle stability during movements. Physical Therapy Plan Frequency and Duration Frequency of Treatment 2x/Week Duration of Treatment Two months Plan of Care Start Date 12/19/21 Plan of Care End Date 02/18/22 Therapeutic Interventions Therapeutic Interventions Aquatic Therapy,Home Exercise Program,Joint Mobilizations, Manual Therapy,Neuromuscular Re-education,Patient/Caregiver Education,Self-Care/Home Management,Soft Tissue Mobilization,Therapeutic Activities,Therapeutic Exercises Modalities Cold Pack/Ice Massage,Electric Stimulation,Hot Packs, Ultrasound Next Visit Focus/Plan Next Note Type Treatment Note Next Visit Plan R shoulder ROM, strength
--- NOTE | 2021-12-28 16:04 | PT.OTN ---
Current Diagnoses Pain in right shoulder (12/28/21) Stiffness of right shoulder, not elsewhere classified (12/28/21) Encounter for other orthopedic aftercare (12/28/21) Physical Therapy Treatment Note PT-OP-A Visit Information Start: 12/19/21 10:24 Freq: Status: Active Protocol: Document 12/28/21 15:30 DCW (Rec: 12/28/21 16:04 DCW [id number]) Out-Patient Physical Therapy Visit Information Visit Information Visit Type Treatment Note Visit Start Time 15:30 Visit Stop Time 16:00 Total Visit Minutes 30 Visit Number 4 Number of VIOLIN REPAIRER Visits 0 Evaluation Information Evaluation Date 12/19/21 PT-OP-B Current Condition Start: 12/19/21 10:24 Freq: Status: Active Protocol: Document 12/19/21 09:45 DCW (Rec: 12/19/21 11:51 DCW [id number]) Current Condition History of Current Condition Onset Date 11/03/21 Current Complaints s/p R Bankart repair History of Current Condition Pt is a 36 year old female presenting to skilled therapy six weeks s/p R Bankart repair following history of anterior shoulder dislocation. Pt reports she has been wearing a sling up until one week ago, when she had her post-op follow-up and was told she could remove it. Pt has been performing pendulums and PROM exercises at home. Experiences occasional pain at a/c joint with extended dangling of arm or reaching forward, notes this was an issue prior to dislocation. Pt presents with right shoulder stiffness and weakness. Most notable with posterior shoulder pain with reaching cross-body. Notes desire to return to performing overhead activities, get back to 100%. PT-OP-C Subjective Start: 12/19/21 10:24 Freq: Status: Active Protocol: Document 12/28/21 15:30 DCW (Rec: 12/28/21 16:04 DCW [id number]) OP-PT Subjective Patient Comments Patient Comments Pt feels there is no pain in the shoulder, it's just tight still. PT-OP-E Functional Tests Start: 12/19/21 10:24 Freq: Status: Active Protocol: Document 12/19/21 09:45 DCW (Rec: 12/19/21 11:53 DCW [id number]) Functional Tests Apley's Scratch Test Action 1- Left Posterior opposite shoulder Action 1- Right Anterior opposite shoulder Action 2- Left T5 Action 2- Right C4 Action 3- Left T 6 Action 3- Right Right SI PT-OP-F Manual Assessment Start: 12/19/21 11:54 Freq: Status: Active Protocol: Document 12/19/21 09:45 DCW (Rec: 12/19/21 11:55 DCW [id number]) Manual Assessments Soft Tissue Assessment Soft Tissue Mobility Assessment Moderate tone with tenderness to palpation 2/4: Pain with wincing along right subscap. Increased tone due to compensatory movements in right upper trap and levator scap. PT-OP-K Range of Motion Start: 12/19/21 10:24 Freq: Status: Active Protocol: Document 12/19/21 09:45 DCW (Rec: 12/19/21 11:53 DCW [id number]) Shoulder Goniometric Range of Motion Shoulder Right Passive Shoulder ROM WFL No Testing Position Supine Flexion 120 Abduction 95 External Rotation at 0 degrees Abduction 0 Right Active Shoulder ROM WFL No Testing Position Sitting Flexion 111 Abduction 89 External Rotation at 0 degrees Abduction 0 Internal Rotation Behind Back (text) R SI PT-OP-M Strength Start: 12/19/21 10:24 Freq: Status: Active Protocol: Document 12/19/21 09:45 DCW (Rec: 12/19/21 11:53 DCW [id number]) Shoulder Strength Shoulder Manual Muscle Testing Right Flexion 3- Fair- Abduction (C5) 3- Fair- External Rotation 2+ Poor+ Internal Rotation 4- Good- PT-OP-Q Treatments Start: 12/19/21 10:24 Freq: Status: Active Protocol: Document 12/28/21 15:30 DCW (Rec: 12/28/21 16:04 DCW [id number]) Cardio Equipment Upper Body Ergometer (UBE) Duration (Minutes) 4 Seat Position 12 Height 2.5 Therapeutic Exercises Supine Exercises 1 Supine Exercise Name AAROM shoulder flexion/ abduction/ER /c PVC Side right Manual Therapy Treatment Soft Tissue Mobilization 1 Body Location R Subscapularis Mobilization Type Sustained Pressure Body Position Supine Joint Mobilizations 1 Joint R Scapulothoracic Direction Lateral Grade III Body Position Supine PT-OP-T Assessment and Plan Start: 12/19/21 10:24 Freq: Status: Active Protocol: Document 12/28/21 15:30 DCW (Rec: 12/28/21 16:04 DCW [id number]) Physical Therapy Assessment Impairments Impairments Functional Activities, Functional Mobility,Pain,ROM, Soft Tissue Mobility,Strength, Tone Goals Two Impairment Pt unable to perform overhead activities Wet End Supervisor Goal (LTG) Pt to demonstrate AROM right shoulder flexion and abduction >160? in order to return to her usual high-level hobby activities LTG Duration 02/18/22 One Impairment Pt does not have an appropriate home exercise program Short Term Goal (STG) Pt to be independent and compliant with an appropriate HEP STG Duration 01/19/22 Assessment Summary Assessment Pt slightly stiffer today, much more resistant to PROM. Did tolerate STM well, felt loosened up following treatment. Physical Therapy Plan Frequency and Duration Frequency of Treatment 2x/Week Duration of Treatment Two months Plan of Care Start Date 12/19/21 Plan of Care End Date 02/18/22 Therapeutic Interventions Therapeutic Interventions Aquatic Therapy,Home Exercise Program,Joint Mobilizations, Manual Therapy,Neuromuscular Re-education,Patient/Caregiver Education,Self-Care/Home Management,Soft Tissue Mobilization,Therapeutic Activities,Therapeutic Exercises Modalities Cold Pack/Ice Massage,Electric Stimulation,Hot Packs, Ultrasound Next Visit Focus/Plan Next Note Type Treatment Note Next Visit Plan R shoulder ROM, strength
--- NOTE | 2022-01-02 10:31 | PT.OTN ---
Current Diagnoses Pain in right shoulder (01/02/22) Stiffness of right shoulder, not elsewhere classified (01/02/22) Encounter for other orthopedic aftercare (01/02/22) Physical Therapy Treatment Note PT-OP-A Visit Information Start: 12/19/21 10:24 Freq: Status: Active Protocol: Document 01/02/22 09:45 DCW (Rec: 01/02/22 10:31 DCW [id number]) Out-Patient Physical Therapy Visit Information Visit Information Visit Type Treatment Note Visit Start Time 09:45 Visit Stop Time 10:30 Total Visit Minutes 45 Visit Number 5 Number of EDUCATIONAL ADVISOR Visits 0 Evaluation Information Evaluation Date 12/19/21 PT-OP-B Current Condition Start: 12/19/21 10:24 Freq: Status: Active Protocol: Document 12/19/21 09:45 DCW (Rec: 12/19/21 11:51 DCW [id number]) Current Condition History of Current Condition Onset Date 11/03/21 Current Complaints s/p R Bankart repair History of Current Condition Pt is a 36 year old female presenting to skilled therapy six weeks s/p R Bankart repair following history of anterior shoulder dislocation. Pt reports she has been wearing a sling up until one week ago, when she had her post-op follow-up and was told she could remove it. Pt has been performing pendulums and PROM exercises at home. Experiences occasional pain at a/c joint with extended dangling of arm or reaching forward, notes this was an issue prior to dislocation. Pt presents with right shoulder stiffness and weakness. Most notable with posterior shoulder pain with reaching cross-body. Notes desire to return to performing overhead activities, get back to 100%. PT-OP-C Subjective Start: 12/19/21 10:24 Freq: Status: Active Protocol: Document 01/02/22 09:45 DCW (Rec: 01/02/22 10:31 DCW [id number]) OP-PT Subjective Patient Comments Patient Comments Pt was out gardening, not pushing the limits, not over- doing it with the right arm, and feels pretty good. PT-OP-E Functional Tests Start: 12/19/21 10:24 Freq: Status: Active Protocol: Document 12/19/21 09:45 DCW (Rec: 12/19/21 11:53 DCW [id number]) Functional Tests Apley's Scratch Test Action 1- Left Posterior opposite shoulder Action 1- Right Anterior opposite shoulder Action 2- Left T5 Action 2- Right C4 Action 3- Left T 6 Action 3- Right Right SI PT-OP-F Manual Assessment Start: 12/19/21 11:54 Freq: Status: Active Protocol: Document 12/19/21 09:45 DCW (Rec: 12/19/21 11:55 DCW [id number]) Manual Assessments Soft Tissue Assessment Soft Tissue Mobility Assessment Moderate tone with tenderness to palpation 2/4: Pain with wincing along right subscap. Increased tone due to compensatory movements in right upper trap and levator scap. PT-OP-K Range of Motion Start: 12/19/21 10:24 Freq: Status: Active Protocol: Document 12/19/21 09:45 DCW (Rec: 12/19/21 11:53 DCW [id number]) Shoulder Goniometric Range of Motion Shoulder Right Passive Shoulder ROM WFL No Testing Position Supine Flexion 120 Abduction 95 External Rotation at 0 degrees Abduction 0 Right Active Shoulder ROM WFL No Testing Position Sitting Flexion 111 Abduction 89 External Rotation at 0 degrees Abduction 0 Internal Rotation Behind Back (text) R SI PT-OP-M Strength Start: 12/19/21 10:24 Freq: Status: Active Protocol: Document 12/19/21 09:45 DCW (Rec: 12/19/21 11:53 DCW [id number]) Shoulder Strength Shoulder Manual Muscle Testing Right Flexion 3- Fair- Abduction (C5) 3- Fair- External Rotation 2+ Poor+ Internal Rotation 4- Good- PT-OP-Q Treatments Start: 12/19/21 10:24 Freq: Status: Active Protocol: Document 01/02/22 09:45 DCW (Rec: 01/02/22 10:31 DCW [id number]) Cardio Equipment Upper Body Ergometer (UBE) Duration (Minutes) 4 Seat Position 12 Height 3 Therapeutic Exercises Supine Exercises 3 Supine Exercise Name PT-directed shoulder PROM Side right Sidelying Exercises 2 Sidelying Exercise Name Sleeper stretch Side right Standing Exercises 3 Standing Exercise Name Ball/wall circles Other Exercises 1 Other Exercise Name Resisted UE side-stepping Resistance Yellow Equipment Used T-band Manual Therapy Treatment Soft Tissue Mobilization 1 Body Location R Subscapularis Mobilization Type Sustained Pressure Body Position Supine Joint Mobilizations 1 Joint R Scapulothoracic Direction Lateral Grade III Body Position Supine PT-OP-T Assessment and Plan Start: 12/19/21 10:24 Freq: Status: Active Protocol: Document 01/02/22 09:45 DCW (Rec: 01/02/22 10:31 DCW [id number]) Physical Therapy Assessment Impairments Impairments Functional Activities, Functional Mobility,Pain,ROM, Soft Tissue Mobility,Strength, Tone Goals Two Impairment Pt unable to perform overhead activities Residential Goal (LTG) Pt to demonstrate AROM right shoulder flexion and abduction >160? in order to return to her usual high-level hobby activities LTG Duration 02/18/22 One Impairment Pt does not have an appropriate home exercise program Short Term Goal (STG) Pt to be independent and compliant with an appropriate HEP STG Duration 01/19/22 Assessment Summary Assessment Demonstrating improved AROM and PROM, less pain and stiffness today vs last week, improving participation in daily activities Physical Therapy Plan Frequency and Duration Frequency of Treatment 2x/Week Duration of Treatment Two months Plan of Care Start Date 12/19/21 Plan of Care End Date 02/18/22 Therapeutic Interventions Therapeutic Interventions Aquatic Therapy,Home Exercise Program,Joint Mobilizations, Manual Therapy,Neuromuscular Re-education,Patient/Caregiver Education,Self-Care/Home Management,Soft Tissue Mobilization,Therapeutic Activities,Therapeutic Exercises Modalities Cold Pack/Ice Massage,Electric Stimulation,Hot Packs, Ultrasound Next Visit Focus/Plan Next Note Type Treatment Note Next Visit Plan R shoulder ROM, strength
--- NOTE | 2022-01-04 17:33 | PT.OTN ---
Current Diagnoses Pain in right shoulder (01/04/22) Stiffness of right shoulder, not elsewhere classified (01/04/22) Encounter for other orthopedic aftercare (01/04/22) Physical Therapy Treatment Note PT-OP-A Visit Information Start: 12/19/21 10:24 Freq: Status: Active Protocol: Document 01/04/22 16:45 DCW (Rec: 01/04/22 17:33 DCW [id number]) Out-Patient Physical Therapy Visit Information Visit Information Visit Type Treatment Note Visit Start Time 16:45 Visit Stop Time 17:30 Total Visit Minutes 45 Visit Number 6 Number of BATTERY REPAIRER Visits 0 Evaluation Information Evaluation Date 12/19/21 PT-OP-B Current Condition Start: 12/19/21 10:24 Freq: Status: Active Protocol: Document 12/19/21 09:45 DCW (Rec: 12/19/21 11:51 DCW [id number]) Current Condition History of Current Condition Onset Date 11/03/21 Current Complaints s/p R Bankart repair History of Current Condition Pt is a 36 year old female presenting to skilled therapy six weeks s/p R Bankart repair following history of anterior shoulder dislocation. Pt reports she has been wearing a sling up until one week ago, when she had her post-op follow-up and was told she could remove it. Pt has been performing pendulums and PROM exercises at home. Experiences occasional pain at a/c joint with extended dangling of arm or reaching forward, notes this was an issue prior to dislocation. Pt presents with right shoulder stiffness and weakness. Most notable with posterior shoulder pain with reaching cross-body. Notes desire to return to performing overhead activities, get back to 100%. PT-OP-C Subjective Start: 12/19/21 10:24 Freq: Status: Active Protocol: Document 01/04/22 16:45 DCW (Rec: 01/04/22 17:33 DCW [id number]) OP-PT Subjective Patient Comments Patient Comments It's a little tighter today after working all day, I think it seems to make a difference if its a morning or afternoon appointment, it's tighter after work. PT-OP-E Functional Tests Start: 12/19/21 10:24 Freq: Status: Active Protocol: Document 12/19/21 09:45 DCW (Rec: 12/19/21 11:53 DCW [id number]) Functional Tests Apley's Scratch Test Action 1- Left Posterior opposite shoulder Action 1- Right Anterior opposite shoulder Action 2- Left T5 Action 2- Right C4 Action 3- Left T 6 Action 3- Right Right SI PT-OP-F Manual Assessment Start: 12/19/21 11:54 Freq: Status: Active Protocol: Document 12/19/21 09:45 DCW (Rec: 12/19/21 11:55 DCW [id number]) Manual Assessments Soft Tissue Assessment Soft Tissue Mobility Assessment Moderate tone with tenderness to palpation 2/4: Pain with wincing along right subscap. Increased tone due to compensatory movements in right upper trap and levator scap. PT-OP-K Range of Motion Start: 12/19/21 10:24 Freq: Status: Active Protocol: Document 12/19/21 09:45 DCW (Rec: 12/19/21 11:53 DCW [id number]) Shoulder Goniometric Range of Motion Shoulder Right Passive Shoulder ROM WFL No Testing Position Supine Flexion 120 Abduction 95 External Rotation at 0 degrees Abduction 0 Right Active Shoulder ROM WFL No Testing Position Sitting Flexion 111 Abduction 89 External Rotation at 0 degrees Abduction 0 Internal Rotation Behind Back (text) R SI PT-OP-M Strength Start: 12/19/21 10:24 Freq: Status: Active Protocol: Document 12/19/21 09:45 DCW (Rec: 12/19/21 11:53 DCW [id number]) Shoulder Strength Shoulder Manual Muscle Testing Right Flexion 3- Fair- Abduction (C5) 3- Fair- External Rotation 2+ Poor+ Internal Rotation 4- Good- PT-OP-Q Treatments Start: 12/19/21 10:24 Freq: Status: Active Protocol: Document 01/04/22 16:45 DCW (Rec: 01/04/22 17:33 DCW [id number]) Cardio Equipment Upper Body Ergometer (UBE) Duration (Minutes) 4 Seat Position 12 Height 3.5 Therapeutic Exercises Supine Exercises 3 Supine Exercise Name PT-directed shoulder PROM Side right Standing Exercises 3 Standing Exercise Name Ball/wall circles Other Exercises 2 Other Exercise Name Wall clock Resistance Yellow 1 Other Exercise Name Resisted UE side-stepping Resistance Yellow Equipment Used T-band Manual Therapy Treatment Soft Tissue Mobilization 1 Body Location R Subscapularis Mobilization Type Sustained Pressure Body Position Supine Joint Mobilizations 1 Joint R Scapulothoracic Direction Lateral Grade III Body Position Supine PT-OP-T Assessment and Plan Start: 12/19/21 10:24 Freq: Status: Active Protocol: Document 01/04/22 16:45 DCW (Rec: 01/04/22 17:33 DCW [id number]) Physical Therapy Assessment Impairments Impairments Functional Activities, Functional Mobility,Pain,ROM, Soft Tissue Mobility,Strength, Tone Goals Two Impairment Pt unable to perform overhead activities Custodial Goal (LTG) Pt to demonstrate AROM right shoulder flexion and abduction >160? in order to return to her usual high-level hobby activities LTG Duration 02/18/22 One Impairment Pt does not have an appropriate home exercise program Short Term Goal (STG) Pt to be independent and compliant with an appropriate HEP STG Duration 01/19/22 Assessment Summary Assessment Pt continues to show limitations with ER, however both flexion and abduction have made great progress, pt also demonstrates improving strength. Physical Therapy Plan Frequency and Duration Frequency of Treatment 2x/Week Duration of Treatment Two months Plan of Care Start Date 12/19/21 Plan of Care End Date 02/18/22 Therapeutic Interventions Therapeutic Interventions Aquatic Therapy,Home Exercise Program,Joint Mobilizations, Manual Therapy,Neuromuscular Re-education,Patient/Caregiver Education,Self-Care/Home Management,Soft Tissue Mobilization,Therapeutic Activities,Therapeutic Exercises Modalities Cold Pack/Ice Massage,Electric Stimulation,Hot Packs, Ultrasound Next Visit Focus/Plan Next Note Type Treatment Note Next Visit Plan R shoulder ROM, strength
--- NOTE | 2022-01-09 12:46 | PT.OTN ---
Current Diagnoses Pain in right shoulder (01/09/22) Stiffness of right shoulder, not elsewhere classified (01/09/22) Encounter for other orthopedic aftercare (01/09/22) Physical Therapy Treatment Note PT-OP-A Visit Information Start: 12/19/21 10:24 Freq: Status: Active Protocol: Document 01/09/22 12:00 DCW (Rec: 01/09/22 12:46 DCW [id number]) Out-Patient Physical Therapy Visit Information Visit Information Visit Type Treatment Note Visit Start Time 12:00 Visit Stop Time 12:45 Total Visit Minutes 45 Visit Number 7 Number of LAMINATOR HAND Visits 0 Evaluation Information Evaluation Date 12/19/21 PT-OP-B Current Condition Start: 12/19/21 10:24 Freq: Status: Active Protocol: Document 12/19/21 09:45 DCW (Rec: 12/19/21 11:51 DCW [id number]) Current Condition History of Current Condition Onset Date 11/03/21 Current Complaints s/p R Bankart repair History of Current Condition Pt is a 36 year old female presenting to skilled therapy six weeks s/p R Bankart repair following history of anterior shoulder dislocation. Pt reports she has been wearing a sling up until one week ago, when she had her post-op follow-up and was told she could remove it. Pt has been performing pendulums and PROM exercises at home. Experiences occasional pain at a/c joint with extended dangling of arm or reaching forward, notes this was an issue prior to dislocation. Pt presents with right shoulder stiffness and weakness. Most notable with posterior shoulder pain with reaching cross-body. Notes desire to return to performing overhead activities, get back to 100%. PT-OP-C Subjective Start: 12/19/21 10:24 Freq: Status: Active Protocol: Document 01/09/22 12:00 DCW (Rec: 01/09/22 12:46 DCW [id number]) OP-PT Subjective Patient Comments Patient Comments Pt notes her shoulder has been feeling better recently. PT-OP-E Functional Tests Start: 12/19/21 10:24 Freq: Status: Active Protocol: Document 12/19/21 09:45 DCW (Rec: 12/19/21 11:53 DCW [id number]) Functional Tests Apley's Scratch Test Action 1- Left Posterior opposite shoulder Action 1- Right Anterior opposite shoulder Action 2- Left T5 Action 2- Right C4 Action 3- Left T 6 Action 3- Right Right SI PT-OP-F Manual Assessment Start: 12/19/21 11:54 Freq: Status: Active Protocol: Document 12/19/21 09:45 DCW (Rec: 12/19/21 11:55 DCW [id number]) Manual Assessments Soft Tissue Assessment Soft Tissue Mobility Assessment Moderate tone with tenderness to palpation 2/4: Pain with wincing along right subscap. Increased tone due to compensatory movements in right upper trap and levator scap. PT-OP-K Range of Motion Start: 12/19/21 10:24 Freq: Status: Active Protocol: Document 12/19/21 09:45 DCW (Rec: 12/19/21 11:53 DCW [id number]) Shoulder Goniometric Range of Motion Shoulder Right Passive Shoulder ROM WFL No Testing Position Supine Flexion 120 Abduction 95 External Rotation at 0 degrees Abduction 0 Right Active Shoulder ROM WFL No Testing Position Sitting Flexion 111 Abduction 89 External Rotation at 0 degrees Abduction 0 Internal Rotation Behind Back (text) R SI PT-OP-M Strength Start: 12/19/21 10:24 Freq: Status: Active Protocol: Document 12/19/21 09:45 DCW (Rec: 12/19/21 11:53 DCW [id number]) Shoulder Strength Shoulder Manual Muscle Testing Right Flexion 3- Fair- Abduction (C5) 3- Fair- External Rotation 2+ Poor+ Internal Rotation 4- Good- PT-OP-Q Treatments Start: 12/19/21 10:24 Freq: Status: Active Protocol: Document 01/09/22 12:00 DCW (Rec: 01/09/22 12:46 DCW [id number]) Cardio Equipment Upper Body Ergometer (UBE) Duration (Minutes) 5 Seat Position 11 Height 3 Therapeutic Exercises Standing Exercises 5 Standing Exercise Name Shoulder Adduction Side bilateral Resistance Lv 2 4 Standing Exercise Name Rows Side bilateral Resistance Lv 2 2 Standing Exercise Name Shouler Extension Side bilateral Resistance Lv 2 1 Standing Exercise Name Wall slides /c end-range stretch Side right Comments Flexion, Abduction Manual Therapy Treatment Soft Tissue Mobilization 1 Body Location R Subscapularis Mobilization Type Sustained Pressure Body Position Supine Joint Mobilizations 1 Joint R Scapulothoracic Direction Lateral Grade III Body Position Supine PT-OP-T Assessment and Plan Start: 12/19/21 10:24 Freq: Status: Active Protocol: Document 01/09/22 12:00 DCW (Rec: 01/09/22 12:46 DCW [id number]) Physical Therapy Assessment Impairments Impairments Functional Activities, Functional Mobility,Pain,ROM, Soft Tissue Mobility,Strength, Tone Goals Two Impairment Pt unable to perform overhead activities Care Home Goal (LTG) Pt to demonstrate AROM right shoulder flexion and abduction >160? in order to return to her usual high-level hobby activities LTG Duration 02/18/22 One Impairment Pt does not have an appropriate home exercise program Short Term Goal (STG) Pt to be independent and compliant with an appropriate HEP STG Duration 01/19/22 Assessment Summary Assessment Pt progressing well, tolerated increased strengthening, flexion and abduction ROM improving. Physical Therapy Plan Frequency and Duration Frequency of Treatment 2x/Week Duration of Treatment Two months Plan of Care Start Date 12/19/21 Plan of Care End Date 02/18/22 Therapeutic Interventions Therapeutic Interventions Aquatic Therapy,Home Exercise Program,Joint Mobilizations, Manual Therapy,Neuromuscular Re-education,Patient/Caregiver Education,Self-Care/Home Management,Soft Tissue Mobilization,Therapeutic Activities,Therapeutic Exercises Modalities Cold Pack/Ice Massage,Electric Stimulation,Hot Packs, Ultrasound Next Visit Focus/Plan Next Note Type Treatment Note Next Visit Plan R shoulder ROM, strength
--- NOTE | 2022-01-11 16:50 | PT.OTN ---
Current Diagnoses Pain in right shoulder (01/11/22) Stiffness of right shoulder, not elsewhere classified (01/11/22) Encounter for other orthopedic aftercare (01/11/22) Physical Therapy Treatment Note PT-OP-A Visit Information Start: 12/19/21 10:24 Freq: Status: Active Protocol: Document 01/11/22 16:00 DCW (Rec: 01/11/22 16:50 DCW [id number]) Out-Patient Physical Therapy Visit Information Visit Information Visit Type Treatment Note Visit Start Time 16:00 Visit Stop Time 16:45 Total Visit Minutes 45 Visit Number 8 Number of SPRING FORGER Visits 0 Evaluation Information Evaluation Date 12/19/21 PT-OP-B Current Condition Start: 12/19/21 10:24 Freq: Status: Active Protocol: Document 12/19/21 09:45 DCW (Rec: 12/19/21 11:51 DCW [id number]) Current Condition History of Current Condition Onset Date 11/03/21 Current Complaints s/p R Bankart repair History of Current Condition Pt is a 36 year old female presenting to skilled therapy six weeks s/p R Bankart repair following history of anterior shoulder dislocation. Pt reports she has been wearing a sling up until one week ago, when she had her post-op follow-up and was told she could remove it. Pt has been performing pendulums and PROM exercises at home. Experiences occasional pain at a/c joint with extended dangling of arm or reaching forward, notes this was an issue prior to dislocation. Pt presents with right shoulder stiffness and weakness. Most notable with posterior shoulder pain with reaching cross-body. Notes desire to return to performing overhead activities, get back to 100%. PT-OP-C Subjective Start: 12/19/21 10:24 Freq: Status: Active Protocol: Document 01/11/22 16:00 DCW (Rec: 01/11/22 16:50 DCW [id number]) OP-PT Subjective Patient Comments Patient Comments Pt notes her shoulder is doing fairly well, had a small jolt in her arm when attempting to quickly pull a tab off something, but the pain did not linger. PT-OP-E Functional Tests Start: 12/19/21 10:24 Freq: Status: Active Protocol: Document 12/19/21 09:45 DCW (Rec: 12/19/21 11:53 DCW [id number]) Functional Tests Apley's Scratch Test Action 1- Left Posterior opposite shoulder Action 1- Right Anterior opposite shoulder Action 2- Left T5 Action 2- Right C4 Action 3- Left T 6 Action 3- Right Right SI PT-OP-F Manual Assessment Start: 12/19/21 11:54 Freq: Status: Active Protocol: Document 12/19/21 09:45 DCW (Rec: 12/19/21 11:55 DCW [id number]) Manual Assessments Soft Tissue Assessment Soft Tissue Mobility Assessment Moderate tone with tenderness to palpation 2/4: Pain with wincing along right subscap. Increased tone due to compensatory movements in right upper trap and levator scap. PT-OP-K Range of Motion Start: 12/19/21 10:24 Freq: Status: Active Protocol: Document 12/19/21 09:45 DCW (Rec: 12/19/21 11:53 DCW [id number]) Shoulder Goniometric Range of Motion Shoulder Right Passive Shoulder ROM WFL No Testing Position Supine Flexion 120 Abduction 95 External Rotation at 0 degrees Abduction 0 Right Active Shoulder ROM WFL No Testing Position Sitting Flexion 111 Abduction 89 External Rotation at 0 degrees Abduction 0 Internal Rotation Behind Back (text) R SI PT-OP-M Strength Start: 12/19/21 10:24 Freq: Status: Active Protocol: Document 12/19/21 09:45 DCW (Rec: 12/19/21 11:53 DCW [id number]) Shoulder Strength Shoulder Manual Muscle Testing Right Flexion 3- Fair- Abduction (C5) 3- Fair- External Rotation 2+ Poor+ Internal Rotation 4- Good- PT-OP-Q Treatments Start: 12/19/21 10:24 Freq: Status: Active Protocol: Document 01/11/22 16:00 DCW (Rec: 01/11/22 16:50 DCW [id number]) Cardio Equipment Upper Body Ergometer (UBE) Duration (Minutes) 5 Seat Position 11 Height 3 Therapeutic Exercises Sitting Exercises 1 Sitting Exercise Name 90/90 ER Side right Resistance 2.2 lb ball Standing Exercises 8 Standing Exercise Name Shoulder ER Side bilateral Resistance Lv 1 7 Standing Exercise Name Shoulder Abduction Side right Resistance Lv 1 6 Standing Exercise Name Shoulder Flexion Side right Resistance Lv 1 5 Standing Exercise Name Shoulder Adduction Side bilateral Resistance Lv 2 2 Standing Exercise Name Shoulder Extension Side bilateral Resistance Lv 2 1 Standing Exercise Name Wall slides /c end-range stretch Side right Comments Flexion, Abduction Manual Therapy Treatment Soft Tissue Mobilization 1 Body Location R Subscapularis Mobilization Type Sustained Pressure Body Position Supine Joint Mobilizations 1 Joint R Scapulothoracic Direction Lateral Grade III Body Position Supine PT-OP-T Assessment and Plan Start: 12/19/21 10:24 Freq: Status: Active Protocol: Document 01/11/22 16:00 DCW (Rec: 01/11/22 16:50 DCW [id number]) Physical Therapy Assessment Impairments Impairments Functional Activities, Functional Mobility,Pain,ROM, Soft Tissue Mobility,Strength, Tone Goals Two Impairment Pt unable to perform overhead activities Radio Mechanic Apprentice Goal (LTG) Pt to demonstrate AROM right shoulder flexion and abduction >160? in order to return to her usual high-level hobby activities LTG Duration 02/18/22 One Impairment Pt does not have an appropriate home exercise program Short Term Goal (STG) Pt to be independent and compliant with an appropriate HEP STG Duration 01/19/22 Assessment Summary Assessment Addition of flexion/abduction strengthening went well today, slight improvements with ER PROM, approaching 20? Physical Therapy Plan Frequency and Duration Frequency of Treatment 2x/Week Duration of Treatment Two months Plan of Care Start Date 12/19/21 Plan of Care End Date 02/18/22 Therapeutic Interventions Therapeutic Interventions Aquatic Therapy,Home Exercise Program,Joint Mobilizations, Manual Therapy,Neuromuscular Re-education,Patient/Caregiver Education,Self-Care/Home Management,Soft Tissue Mobilization,Therapeutic Activities,Therapeutic Exercises Modalities Cold Pack/Ice Massage,Electric Stimulation,Hot Packs, Ultrasound Next Visit Focus/Plan Next Note Type Treatment Note Next Visit Plan R shoulder ROM, strength
--- NOTE | 2022-01-16 12:31 | PT.OTN ---
Current Diagnoses Pain in right shoulder (01/16/22) Stiffness of right shoulder, not elsewhere classified (01/16/22) Encounter for other orthopedic aftercare (01/16/22) Physical Therapy Treatment Note PT-OP-A Visit Information Start: 12/19/21 10:24 Freq: Status: Active Protocol: Document 01/16/22 12:00 DCW (Rec: 01/16/22 12:31 DCW [id number]) Out-Patient Physical Therapy Visit Information Visit Information Visit Type Treatment Note Visit Start Time 12:00 Visit Stop Time 12:30 Total Visit Minutes 30 Visit Number 9 Number of PRODUCT SAFETY EXPERT Visits 0 Evaluation Information Evaluation Date 12/19/21 PT-OP-B Current Condition Start: 12/19/21 10:24 Freq: Status: Active Protocol: Document 12/19/21 09:45 DCW (Rec: 12/19/21 11:51 DCW [id number]) Current Condition History of Current Condition Onset Date 11/03/21 Current Complaints s/p R Bankart repair History of Current Condition Pt is a 36 year old female presenting to skilled therapy six weeks s/p R Bankart repair following history of anterior shoulder dislocation. Pt reports she has been wearing a sling up until one week ago, when she had her post-op follow-up and was told she could remove it. Pt has been performing pendulums and PROM exercises at home. Experiences occasional pain at a/c joint with extended dangling of arm or reaching forward, notes this was an issue prior to dislocation. Pt presents with right shoulder stiffness and weakness. Most notable with posterior shoulder pain with reaching cross-body. Notes desire to return to performing overhead activities, get back to 100%. PT-OP-C Subjective Start: 12/19/21 10:24 Freq: Status: Active Protocol: Document 01/16/22 12:00 DCW (Rec: 01/16/22 12:31 DCW [id number]) OP-PT Subjective Patient Comments Patient Comments Pt requests an early stop to her appointment, she has a follow-up Ortho appointment in [place] at 1:30. PT-OP-E Functional Tests Start: 12/19/21 10:24 Freq: Status: Active Protocol: Document 12/19/21 09:45 DCW (Rec: 12/19/21 11:53 DCW [id number]) Functional Tests Apley's Scratch Test Action 1- Left Posterior opposite shoulder Action 1- Right Anterior opposite shoulder Action 2- Left T5 Action 2- Right C4 Action 3- Left T 6 Action 3- Right Right SI PT-OP-F Manual Assessment Start: 12/19/21 11:54 Freq: Status: Active Protocol: Document 12/19/21 09:45 DCW (Rec: 12/19/21 11:55 DCW [id number]) Manual Assessments Soft Tissue Assessment Soft Tissue Mobility Assessment Moderate tone with tenderness to palpation 2/4: Pain with wincing along right subscap. Increased tone due to compensatory movements in right upper trap and levator scap. PT-OP-K Range of Motion Start: 12/19/21 10:24 Freq: Status: Active Protocol: Document 12/19/21 09:45 DCW (Rec: 12/19/21 11:53 DCW [id number]) Shoulder Goniometric Range of Motion Shoulder Right Passive Shoulder ROM WFL No Testing Position Supine Flexion 120 Abduction 95 External Rotation at 0 degrees Abduction 0 Right Active Shoulder ROM WFL No Testing Position Sitting Flexion 111 Abduction 89 External Rotation at 0 degrees Abduction 0 Internal Rotation Behind Back (text) R SI PT-OP-M Strength Start: 12/19/21 10:24 Freq: Status: Active Protocol: Document 12/19/21 09:45 DCW (Rec: 12/19/21 11:53 DCW [id number]) Shoulder Strength Shoulder Manual Muscle Testing Right Flexion 3- Fair- Abduction (C5) 3- Fair- External Rotation 2+ Poor+ Internal Rotation 4- Good- PT-OP-Q Treatments Start: 12/19/21 10:24 Freq: Status: Active Protocol: Document 01/16/22 12:00 DCW (Rec: 01/16/22 12:31 DCW [id number]) Cardio Equipment Upper Body Ergometer (UBE) Duration (Minutes) 5 Seat Position 11 Height 3 Therapeutic Exercises Supine Exercises 3 Supine Exercise Name PT-directed shoulder PROM Side right Manual Therapy Treatment Soft Tissue Mobilization 1 Body Location R Subscapularis Mobilization Type Sustained Pressure Body Position Supine Joint Mobilizations 1 Joint R Scapulothoracic Direction Lateral Grade III Body Position Supine PT-OP-T Assessment and Plan Start: 12/19/21 10:24 Freq: Status: Active Protocol: Document 01/16/22 12:00 DCW (Rec: 01/16/22 12:31 DCW [id number]) Physical Therapy Assessment Impairments Impairments Functional Activities, Functional Mobility,Pain,ROM, Soft Tissue Mobility,Strength, Tone Goals Two Impairment Pt unable to perform overhead activities Intermediate Goal (LTG) Pt to demonstrate AROM right shoulder flexion and abduction >160? in order to return to her usual high-level hobby activities LTG Duration 02/18/22 One Impairment Pt does not have an appropriate home exercise program Short Term Goal (STG) Pt to be independent and compliant with an appropriate HEP STG Duration 01/19/22 Assessment Summary Assessment PROM ER measured at 26? today, AROM at 18?. Pt notes she rarely notices that she is limited in ER.just not a motion I usually have to do. Tolerating treatment very well . Physical Therapy Plan Frequency and Duration Frequency of Treatment 2x/Week Duration of Treatment Two months Plan of Care Start Date 12/19/21 Plan of Care End Date 02/18/22 Therapeutic Interventions Therapeutic Interventions Aquatic Therapy,Home Exercise Program,Joint Mobilizations, Manual Therapy,Neuromuscular Re-education,Patient/Caregiver Education,Self-Care/Home Management,Soft Tissue Mobilization,Therapeutic Activities,Therapeutic Exercises Modalities Cold Pack/Ice Massage,Electric Stimulation,Hot Packs, Ultrasound Next Visit Focus/Plan Next Note Type Treatment Note Next Visit Plan R shoulder ROM, strength
--- NOTE | 2022-01-18 17:30 | PT.OTN ---
Current Diagnoses Pain in right shoulder (01/18/22) Stiffness of right shoulder, not elsewhere classified (01/18/22) Encounter for other orthopedic aftercare (01/18/22) Physical Therapy Treatment Note PT-OP-A Visit Information Start: 12/19/21 10:24 Freq: Status: Active Protocol: Document 01/18/22 16:45 DCW (Rec: 01/18/22 17:30 DCW [id number]) Out-Patient Physical Therapy Visit Information Visit Information Visit Type Treatment Note Visit Start Time 16:45 Visit Stop Time 17:30 Total Visit Minutes 45 Visit Number 10 Number of CONTENT CHECKER Visits 0 Evaluation Information Evaluation Date 12/19/21 PT-OP-B Current Condition Start: 12/19/21 10:24 Freq: Status: Active Protocol: Document 12/19/21 09:45 DCW (Rec: 12/19/21 11:51 DCW [id number]) Current Condition History of Current Condition Onset Date 11/03/21 Current Complaints s/p R Bankart repair History of Current Condition Pt is a 36 year old female presenting to skilled therapy six weeks s/p R Bankart repair following history of anterior shoulder dislocation. Pt reports she has been wearing a sling up until one week ago, when she had her post-op follow-up and was told she could remove it. Pt has been performing pendulums and PROM exercises at home. Experiences occasional pain at a/c joint with extended dangling of arm or reaching forward, notes this was an issue prior to dislocation. Pt presents with right shoulder stiffness and weakness. Most notable with posterior shoulder pain with reaching cross-body. Notes desire to return to performing overhead activities, get back to 100%. PT-OP-C Subjective Start: 12/19/21 10:24 Freq: Status: Active Protocol: Document 01/18/22 16:45 DCW (Rec: 01/18/22 17:30 DCW [id number]) OP-PT Subjective Patient Comments Patient Comments Ortho follow-up went well, next is in four week. No complaints. PT-OP-E Functional Tests Start: 12/19/21 10:24 Freq: Status: Active Protocol: Document 12/19/21 09:45 DCW (Rec: 12/19/21 11:53 DCW [id number]) Functional Tests Apley's Scratch Test Action 1- Left Posterior opposite shoulder Action 1- Right Anterior opposite shoulder Action 2- Left T5 Action 2- Right C4 Action 3- Left T 6 Action 3- Right Right SI PT-OP-F Manual Assessment Start: 12/19/21 11:54 Freq: Status: Active Protocol: Document 12/19/21 09:45 DCW (Rec: 12/19/21 11:55 DCW [id number]) Manual Assessments Soft Tissue Assessment Soft Tissue Mobility Assessment Moderate tone with tenderness to palpation 2/4: Pain with wincing along right subscap. Increased tone due to compensatory movements in right upper trap and levator scap. PT-OP-K Range of Motion Start: 12/19/21 10:24 Freq: Status: Active Protocol: Document 12/19/21 09:45 DCW (Rec: 12/19/21 11:53 DCW [id number]) Shoulder Goniometric Range of Motion Shoulder Right Passive Shoulder ROM WFL No Testing Position Supine Flexion 120 Abduction 95 External Rotation at 0 degrees Abduction 0 Right Active Shoulder ROM WFL No Testing Position Sitting Flexion 111 Abduction 89 External Rotation at 0 degrees Abduction 0 Internal Rotation Behind Back (text) R SI PT-OP-M Strength Start: 12/19/21 10:24 Freq: Status: Active Protocol: Document 12/19/21 09:45 DCW (Rec: 12/19/21 11:53 DCW [id number]) Shoulder Strength Shoulder Manual Muscle Testing Right Flexion 3- Fair- Abduction (C5) 3- Fair- External Rotation 2+ Poor+ Internal Rotation 4- Good- PT-OP-Q Treatments Start: 12/19/21 10:24 Freq: Status: Active Protocol: Document 01/18/22 16:45 DCW (Rec: 01/18/22 17:30 DCW [id number]) Cardio Equipment Upper Body Ergometer (UBE) Duration (Minutes) 5 Seat Position 11 Height 3 Therapeutic Exercises Supine Exercises 3 Supine Exercise Name PT-directed shoulder PROM Side right Sitting Exercises 1 Sitting Exercise Name 90/90 ER Side right Resistance 2.2 lb ball Manual Therapy Treatment Soft Tissue Mobilization 1 Body Location R Subscapularis Mobilization Type Sustained Pressure Body Position Supine Joint Mobilizations 1 Joint R Scapulothoracic Direction Lateral Grade III Body Position Supine PT-OP-T Assessment and Plan Start: 12/19/21 10:24 Freq: Status: Active Protocol: Document 01/18/22 16:45 DCW (Rec: 01/18/22 17:30 DCW [id number]) Physical Therapy Assessment Impairments Impairments Functional Activities, Functional Mobility,Pain,ROM, Soft Tissue Mobility,Strength, Tone Goals Two Impairment Pt unable to perform overhead activities Penitentiary Goal (LTG) Pt to demonstrate AROM right shoulder flexion and abduction >160? in order to return to her usual high-level hobby activities LTG Duration 02/18/22 One Impairment Pt does not have an appropriate home exercise program Short Term Goal (STG) Pt to be independent and compliant with an appropriate HEP STG Duration 01/19/22 Assessment Summary Assessment Pt showing good strength within available ROM, still significant limitations with ER, but improving Physical Therapy Plan Frequency and Duration Frequency of Treatment 2x/Week Duration of Treatment Two months Plan of Care Start Date 12/19/21 Plan of Care End Date 02/18/22 Therapeutic Interventions Therapeutic Interventions Aquatic Therapy,Home Exercise Program,Joint Mobilizations, Manual Therapy,Neuromuscular Re-education,Patient/Caregiver Education,Self-Care/Home Management,Soft Tissue Mobilization,Therapeutic Activities,Therapeutic Exercises Modalities Cold Pack/Ice Massage,Electric Stimulation,Hot Packs, Ultrasound Next Visit Focus/Plan Next Note Type Treatment Note Next Visit Plan R shoulder ROM, strength
--- NOTE | 2022-01-23 10:31 | PT.OTN ---
Current Diagnoses Pain in right shoulder (01/23/22) Stiffness of right shoulder, not elsewhere classified (01/23/22) Encounter for other orthopedic aftercare (01/23/22) Physical Therapy Treatment Note PT-OP-A Visit Information Start: 12/19/21 10:24 Freq: Status: Active Protocol: Document 01/23/22 09:45 DCW (Rec: 01/23/22 10:30 DCW [id number]) Out-Patient Physical Therapy Visit Information Visit Information Visit Type Treatment Note Visit Start Time 09:45 Visit Stop Time 10:30 Total Visit Minutes 45 Visit Number 11 Number of TORCH STRAIGHTENER Visits 0 Evaluation Information Evaluation Date 12/19/21 PT-OP-B Current Condition Start: 12/19/21 10:24 Freq: Status: Active Protocol: Document 12/19/21 09:45 DCW (Rec: 12/19/21 11:51 DCW [id number]) Current Condition History of Current Condition Onset Date 11/03/21 Current Complaints s/p R Bankart repair History of Current Condition Pt is a 36 year old female presenting to skilled therapy six weeks s/p R Bankart repair following history of anterior shoulder dislocation. Pt reports she has been wearing a sling up until one week ago, when she had her post-op follow-up and was told she could remove it. Pt has been performing pendulums and PROM exercises at home. Experiences occasional pain at a/c joint with extended dangling of arm or reaching forward, notes this was an issue prior to dislocation. Pt presents with right shoulder stiffness and weakness. Most notable with posterior shoulder pain with reaching cross-body. Notes desire to return to performing overhead activities, get back to 100%. PT-OP-C Subjective Start: 12/19/21 10:24 Freq: Status: Active Protocol: Document 01/23/22 09:45 DCW (Rec: 01/23/22 10:30 DCW [id number]) OP-PT Subjective Patient Comments Patient Comments Pt notes her shoulder feels like her external rotation is opening up more. PT-OP-E Functional Tests Start: 12/19/21 10:24 Freq: Status: Active Protocol: Document 12/19/21 09:45 DCW (Rec: 12/19/21 11:53 DCW [id number]) Functional Tests Delmisey's Scratch Test Action 1- Left Posterior opposite shoulder Action 1- Right Anterior opposite shoulder Action 2- Left T5 Action 2- Right C4 Action 3- Left T 6 Action 3- Right Right SI PT-OP-F Manual Assessment Start: 12/19/21 11:54 Freq: Status: Active Protocol: Document 12/19/21 09:45 DCW (Rec: 12/19/21 11:55 DCW [id number]) Manual Assessments Soft Tissue Assessment Soft Tissue Mobility Assessment Moderate tone with tenderness to palpation 2/4: Pain with wincing along right subscap. Increased tone due to compensatory movements in right upper trap and levator scap. PT-OP-K Range of Motion Start: 12/19/21 10:24 Freq: Status: Active Protocol: Document 12/19/21 09:45 DCW (Rec: 12/19/21 11:53 DCW [id number]) Shoulder Goniometric Range of Motion Shoulder Right Passive Shoulder ROM WFL No Testing Position Supine Flexion 120 Abduction 95 External Rotation at 0 degrees Abduction 0 Right Active Shoulder ROM WFL No Testing Position Sitting Flexion 111 Abduction 89 External Rotation at 0 degrees Abduction 0 Internal Rotation Behind Back (text) R SI PT-OP-M Strength Start: 12/19/21 10:24 Freq: Status: Active Protocol: Document 12/19/21 09:45 DCW (Rec: 12/19/21 11:53 DCW [id number]) Shoulder Strength Shoulder Manual Muscle Testing Right Flexion 3- Fair- Abduction (C5) 3- Fair- External Rotation 2+ Poor+ Internal Rotation 4- Good- PT-OP-Q Treatments Start: 12/19/21 10:24 Freq: Status: Active Protocol: Document 01/23/22 09:45 DCW (Rec: 01/23/22 10:30 DCW [id number]) Cardio Equipment Upper Body Ergometer (UBE) Duration (Minutes) 5 Seat Position 11 Height 3 Therapeutic Exercises Supine Exercises 4 Supine Exercise Name UE PNF D1/D2 Flexion Side right Resistance 3# 3 Supine Exercise Name PT-directed shoulder PROM Side right Prone Exercises 2 Prone Exercise Name ER Side bilateral Resistance 3# Comments Prone on Green T-ball 1 Prone Exercise Name Hughston's Side bilateral Resistance 3# Comments Prone on Green T-ball Other Exercises 1 Other Exercise Name Resisted UE side-stepping Resistance Red Equipment Used T-band Comments on plinth, with body weight compression Manual Therapy Treatment Soft Tissue Mobilization 1 Body Location R Subscapularis Mobilization Type Sustained Pressure Body Position Supine Joint Mobilizations 1 Joint R Scapulothoracic Direction Lateral Grade III Body Position Supine PT-OP-T Assessment and Plan Start: 12/19/21 10:24 Freq: Status: Active Protocol: Document 01/23/22 09:45 DCW (Rec: 01/23/22 10:30 DCW [id number]) Physical Therapy Assessment Impairments Impairments Functional Activities, Functional Mobility,Pain,ROM, Soft Tissue Mobility,Strength, Tone Goals Two Impairment Pt unable to perform overhead activities Halfway Goal (LTG) Pt to demonstrate AROM right shoulder flexion and abduction >160? in order to return to her usual high-level hobby activities LTG Duration 02/18/22 One Impairment Pt does not have an appropriate home exercise program Short Term Goal (STG) Pt to be independent and compliant with an appropriate HEP STG Duration 01/19/22 Assessment Summary Assessment Added increased strengthening exercises today, tolerated well, continues to improve with ER. Physical Therapy Plan Frequency and Duration Frequency of Treatment 2x/Week Duration of Treatment Two months Plan of Care Start Date 12/19/21 Plan of Care End Date 02/18/22 Therapeutic Interventions Therapeutic Interventions Aquatic Therapy,Home Exercise Program,Joint Mobilizations, Manual Therapy,Neuromuscular Re-education,Patient/Caregiver Education,Self-Care/Home Management,Soft Tissue Mobilization,Therapeutic Activities,Therapeutic Exercises Modalities Cold Pack/Ice Massage,Electric Stimulation,Hot Packs, Ultrasound Next Visit Focus/Plan Next Note Type Treatment Note Next Visit Plan R shoulder ROM, strength
--- NOTE | 2022-01-25 16:55 | PT.OTN ---
Current Diagnoses Pain in right shoulder (01/25/22) Stiffness of right shoulder, not elsewhere classified (01/25/22) Encounter for other orthopedic aftercare (01/25/22) Physical Therapy Treatment Note PT-OP-A Visit Information Start: 12/19/21 10:24 Freq: Status: Active Protocol: Document 01/25/22 16:07 DCW (Rec: 01/25/22 16:54 DCW [id number]) Out-Patient Physical Therapy Visit Information Visit Information Visit Type Treatment Note Visit Start Time 16:07 Visit Stop Time 16:50 Total Visit Minutes 43 Visit Number 12 Number of TELEPHONE SOLICITOR Visits 0 Evaluation Information Evaluation Date 12/19/21 PT-OP-B Current Condition Start: 12/19/21 10:24 Freq: Status: Active Protocol: Document 12/19/21 09:45 DCW (Rec: 12/19/21 11:51 DCW [id number]) Current Condition History of Current Condition Onset Date 11/03/21 Current Complaints s/p R Bankart repair History of Current Condition Pt is a 36 year old female presenting to skilled therapy six weeks s/p R Bankart repair following history of anterior shoulder dislocation. Pt reports she has been wearing a sling up until one week ago, when she had her post-op follow-up and was told she could remove it. Pt has been performing pendulums and PROM exercises at home. Experiences occasional pain at a/c joint with extended dangling of arm or reaching forward, notes this was an issue prior to dislocation. Pt presents with right shoulder stiffness and weakness. Most notable with posterior shoulder pain with reaching cross-body. Notes desire to return to performing overhead activities, get back to 100%. PT-OP-C Subjective Start: 12/19/21 10:24 Freq: Status: Active Protocol: Document 01/25/22 16:07 DCW (Rec: 01/25/22 16:54 DCW [id number]) OP-PT Subjective Patient Comments Patient Comments No notable changes since last visit, reports it is feeling pretty good. PT-OP-E Functional Tests Start: 12/19/21 10:24 Freq: Status: Active Protocol: Document 12/19/21 09:45 DCW (Rec: 12/19/21 11:53 DCW [id number]) Functional Tests Apley's Scratch Test Action 1- Left Posterior opposite shoulder Action 1- Right Anterior opposite shoulder Action 2- Left T5 Action 2- Right C4 Action 3- Left T 6 Action 3- Right Right SI PT-OP-F Manual Assessment Start: 12/19/21 11:54 Freq: Status: Active Protocol: Document 12/19/21 09:45 DCW (Rec: 12/19/21 11:55 DCW [id number]) Manual Assessments Soft Tissue Assessment Soft Tissue Mobility Assessment Moderate tone with tenderness to palpation 2/4: Pain with wincing along right subscap. Increased tone due to compensatory movements in right upper trap and levator scap. PT-OP-K Range of Motion Start: 12/19/21 10:24 Freq: Status: Active Protocol: Document 12/19/21 09:45 DCW (Rec: 12/19/21 11:53 DCW [id number]) Shoulder Goniometric Range of Motion Shoulder Right Passive Shoulder ROM WFL No Testing Position Supine Flexion 120 Abduction 95 External Rotation at 0 degrees Abduction 0 Right Active Shoulder ROM WFL No Testing Position Sitting Flexion 111 Abduction 89 External Rotation at 0 degrees Abduction 0 Internal Rotation Behind Back (text) R SI PT-OP-M Strength Start: 12/19/21 10:24 Freq: Status: Active Protocol: Document 12/19/21 09:45 DCW (Rec: 12/19/21 11:53 DCW [id number]) Shoulder Strength Shoulder Manual Muscle Testing Right Flexion 3- Fair- Abduction (C5) 3- Fair- External Rotation 2+ Poor+ Internal Rotation 4- Good- PT-OP-Q Treatments Start: 12/19/21 10:24 Freq: Status: Active Protocol: Document 01/25/22 16:07 DCW (Rec: 01/25/22 16:54 DCW [id number]) Cardio Equipment Upper Body Ergometer (UBE) Duration (Minutes) 5 Seat Position 11 Height 3 Therapeutic Exercises Supine Exercises 4 Supine Exercise Name UE PNF D1/D2 Flexion Side right Resistance 3# 3 Supine Exercise Name PT-directed shoulder PROM Side right Prone Exercises 2 Prone Exercise Name ER Side bilateral Resistance 3# Comments Prone on Green T-ball 1 Prone Exercise Name Hughston's Side bilateral Resistance 3# Comments Prone on Green T-ball Other Exercises 1 Other Exercise Name Resisted UE side-stepping Resistance Red Equipment Used T-band Comments on plinth, with body weight compression Manual Therapy Treatment Soft Tissue Mobilization 1 Body Location R Subscapularis Mobilization Type Sustained Pressure Body Position Supine Joint Mobilizations 1 Joint R Scapulothoracic Direction Lateral Grade III Body Position Supine PT-OP-T Assessment and Plan Start: 12/19/21 10:24 Freq: Status: Active Protocol: Document 01/25/22 16:07 DCW (Rec: 01/25/22 16:54 DCW [id number]) Physical Therapy Assessment Impairments Impairments Functional Activities, Functional Mobility,Pain,ROM, Soft Tissue Mobility,Strength, Tone Goals Two Impairment Pt unable to perform overhead activities [facility]ci Goal (LTG) Pt to demonstrate AROM right shoulder flexion and abduction >160? in order to return to her usual high-level hobby activities LTG Duration 02/18/22 One Impairment Pt does not have an appropriate home exercise program Short Term Goal (STG) Pt to be independent and compliant with an appropriate HEP STG Duration 01/19/22 Assessment Summary Assessment Pt continues to show good ROM improvement, ER to 45? today, flexion and abduction nearing WNL Physical Therapy Plan Frequency and Duration Frequency of Treatment 2x/Week Duration of Treatment Two months Plan of Care Start Date 12/19/21 Plan of Care End Date 02/18/22 Therapeutic Interventions Therapeutic Interventions Aquatic Therapy,Home Exercise Program,Joint Mobilizations, Manual Therapy,Neuromuscular Re-education,Patient/Caregiver Education,Self-Care/Home Management,Soft Tissue Mobilization,Therapeutic Activities,Therapeutic Exercises Modalities Cold Pack/Ice Massage,Electric Stimulation,Hot Packs, Ultrasound Next Visit Focus/Plan Next Note Type Treatment Note Next Visit Plan R shoulder ROM, strength
--- NOTE | 2022-01-30 10:29 | PT.OTN ---
Current Diagnoses Pain in right shoulder (01/30/22) Stiffness of right shoulder, not elsewhere classified (01/30/22) Encounter for other orthopedic aftercare (01/30/22) Physical Therapy Treatment Note PT-OP-A Visit Information Start: 12/19/21 10:24 Freq: Status: Active Protocol: Document 01/30/22 09:45 DCW (Rec: 01/30/22 10:29 DCW [id number]) Out-Patient Physical Therapy Visit Information Visit Information Visit Type Treatment Note Visit Start Time 09:45 Visit Stop Time 10:30 Total Visit Minutes 45 Visit Number 13 Number of POWER PLANT OPERATOR Visits 0 Evaluation Information Evaluation Date 12/19/21 PT-OP-B Current Condition Start: 12/19/21 10:24 Freq: Status: Active Protocol: Document 12/19/21 09:45 DCW (Rec: 12/19/21 11:51 DCW [id number]) Current Condition History of Current Condition Onset Date 11/03/21 Current Complaints s/p R Bankart repair History of Current Condition Pt is a 36 year old female presenting to skilled therapy six weeks s/p R Bankart repair following history of anterior shoulder dislocation. Pt reports she has been wearing a sling up until one week ago, when she had her post-op follow-up and was told she could remove it. Pt has been performing pendulums and PROM exercises at home. Experiences occasional pain at a/c joint with extended dangling of arm or reaching forward, notes this was an issue prior to dislocation. Pt presents with right shoulder stiffness and weakness. Most notable with posterior shoulder pain with reaching cross-body. Notes desire to return to performing overhead activities, get back to 100%. PT-OP-C Subjective Start: 12/19/21 10:24 Freq: Status: Active Protocol: Document 01/30/22 09:45 DCW (Rec: 01/30/22 10:29 DCW [id number]) OP-PT Subjective Patient Comments Patient Comments Pt feeling good today. PT-OP-E Functional Tests Start: 12/19/21 10:24 Freq: Status: Active Protocol: Document 12/19/21 09:45 DCW (Rec: 12/19/21 11:53 DCW [id number]) Functional Tests Delmisey's Scratch Test Action 1- Left Posterior opposite shoulder Action 1- Right Anterior opposite shoulder Action 2- Left T5 Action 2- Right C4 Action 3- Left T 6 Action 3- Right Right SI PT-OP-F Manual Assessment Start: 12/19/21 11:54 Freq: Status: Active Protocol: Document 12/19/21 09:45 DCW (Rec: 12/19/21 11:55 DCW [id number]) Manual Assessments Soft Tissue Assessment Soft Tissue Mobility Assessment Moderate tone with tenderness to palpation 2/4: Pain with wincing along right subscap. Increased tone due to compensatory movements in right upper trap and levator scap. PT-OP-K Range of Motion Start: 12/19/21 10:24 Freq: Status: Active Protocol: Document 12/19/21 09:45 DCW (Rec: 12/19/21 11:53 DCW [id number]) Shoulder Goniometric Range of Motion Shoulder Right Passive Shoulder ROM WFL No Testing Position Supine Flexion 120 Abduction 95 External Rotation at 0 degrees Abduction 0 Right Active Shoulder ROM WFL No Testing Position Sitting Flexion 111 Abduction 89 External Rotation at 0 degrees Abduction 0 Internal Rotation Behind Back (text) R SI PT-OP-M Strength Start: 12/19/21 10:24 Freq: Status: Active Protocol: Document 12/19/21 09:45 DCW (Rec: 12/19/21 11:53 DCW [id number]) Shoulder Strength Shoulder Manual Muscle Testing Right Flexion 3- Fair- Abduction (C5) 3- Fair- External Rotation 2+ Poor+ Internal Rotation 4- Good- PT-OP-Q Treatments Start: 12/19/21 10:24 Freq: Status: Active Protocol: Document 01/30/22 09:45 DCW (Rec: 01/30/22 10:29 DCW [id number]) Cardio Equipment Upper Body Ergometer (UBE) Duration (Minutes) 5 Seat Position 11 Height 3 Therapeutic Exercises Supine Exercises 3 Supine Exercise Name PT-directed shoulder PROM Side right Prone Exercises 2 Prone Exercise Name ER, Rows Side bilateral Resistance 3# Comments Prone on Green T-ball 1 Prone Exercise Name Hughston's Side bilateral Resistance 3# Comments Prone on Green T-ball Manual Therapy Treatment Soft Tissue Mobilization 1 Body Location R Subscapularis Mobilization Type Sustained Pressure Body Position Supine Joint Mobilizations 1 Joint R Scapulothoracic Direction Lateral Grade III Body Position Supine PT-OP-T Assessment and Plan Start: 03/28/22 10:24 Freq: Status: Active Protocol: Document 01/30/22 09:45 DCW (Rec: 01/30/22 10:29 DCW [id number]) Physical Therapy Assessment Impairments Impairments Functional Activities, Functional Mobility,Pain,ROM, Soft Tissue Mobility,Strength, Tone Goals Two Impairment Pt unable to perform overhead activities Assisted Goal (LTG) Pt to demonstrate AROM right shoulder flexion and abduction >160? in order to return to her usual high-level hobby activities LTG Duration 02/18/22 One Impairment Pt does not have an appropriate home exercise program Short Term Goal (STG) Pt to be independent and compliant with an appropriate HEP STG Duration 01/19/22 Assessment Summary Assessment Pt doing well today, good movement with right shoulder, still experiencing some weakness, limited ER. Physical Therapy Plan Frequency and Duration Frequency of Treatment 2x/Week Duration of Treatment Two months Plan of Care Start Date 12/19/21 Plan of Care End Date 02/18/22 Therapeutic Interventions Therapeutic Interventions Aquatic Therapy,Home Exercise Program,Joint Mobilizations, Manual Therapy,Neuromuscular Re-education,Patient/Caregiver Education,Self-Care/Home Management,Soft Tissue Mobilization,Therapeutic Activities,Therapeutic Exercises Modalities Cold Pack/Ice Massage,Electric Stimulation,Hot Packs, Ultrasound Next Visit Focus/Plan Next Note Type Treatment Note Next Visit Plan R shoulder ROM, strength
--- NOTE | 2022-02-01 18:16 | PT.OTN ---
Current Diagnoses Pain in right shoulder (02/01/22) Stiffness of right shoulder, not elsewhere classified (02/01/22) Encounter for other orthopedic aftercare (02/01/22) Physical Therapy Treatment Note PT-OP-A Visit Information Start: 12/19/21 10:24 Freq: Status: Active Protocol: Document 02/01/22 16:02 [facility] (Rec: 02/01/22 18:16 [facility] [id number]) Out-Patient Physical Therapy Visit Information Visit Information Visit Type Treatment Note Visit Start Time 16:06 Visit Stop Time 16:46 Total Visit Minutes 40 Visit Number 14 Number of CANVAS PRODUCTS SALES REPRESENTATIVE Visits 0 PT-OP-B Current Condition Start: 12/19/21 10:24 Freq: Status: Active Protocol: Document 12/19/21 09:45 DCW (Rec: 12/19/21 11:51 DCW [id number]) Current Condition History of Current Condition Onset Date 11/03/21 Current Complaints s/p R Bankart repair History of Current Condition Pt is a 36 year old female presenting to skilled therapy six weeks s/p R Bankart repair following history of anterior shoulder dislocation. Pt reports she has been wearing a sling up until one week ago, when she had her post-op follow-up and was told she could remove it. Pt has been performing pendulums and PROM exercises at home. Experiences occasional pain at a/c joint with extended dangling of arm or reaching forward, notes this was an issue prior to dislocation. Pt presents with right shoulder stiffness and weakness. Most notable with posterior shoulder pain with reaching cross-body. Notes desire to return to performing overhead activities, get back to 100%. PT-OP-C Subjective Start: 12/19/21 10:24 Freq: Status: Active Protocol: Document 02/01/22 16:02 [facility] (Rec: 02/01/22 18:16 [facility] [id number]) OP-PT Subjective Patient Comments Patient Comments Pt reports she is doing her band exercises at home. PT-OP-E Functional Tests Start: 12/19/21 10:24 Freq: Status: Active Protocol: Document 12/19/21 09:45 DCW (Rec: 12/19/21 11:53 DCW [id number]) Functional Tests Delmisey's Scratch Test Action 1- Left Posterior opposite shoulder Action 1- Right Anterior opposite shoulder Action 2- Left T5 Action 2- Right C4 Action 3- Left T 6 Action 3- Right Right SI PT-OP-F Manual Assessment Start: 12/19/21 11:54 Freq: Status: Active Protocol: Document 12/19/21 09:45 DCW (Rec: 12/19/21 11:55 DCW [id number]) Manual Assessments Soft Tissue Assessment Soft Tissue Mobility Assessment Moderate tone with tenderness to palpation 2/4: Pain with wincing along right subscap. Increased tone due to compensatory movements in right upper trap and levator scap. PT-OP-K Range of Motion Start: 12/19/21 10:24 Freq: Status: Active Protocol: Document 12/19/21 09:45 DCW (Rec: 12/19/21 11:53 DCW [id number]) Shoulder Goniometric Range of Motion Shoulder Right Passive Shoulder ROM WFL No Testing Position Supine Flexion 120 Abduction 95 External Rotation at 0 degrees Abduction 0 Right Active Shoulder ROM WFL No Testing Position Sitting Flexion 111 Abduction 89 External Rotation at 0 degrees Abduction 0 Internal Rotation Behind Back (text) R SI PT-OP-M Strength Start: 12/19/21 10:24 Freq: Status: Active Protocol: Document 12/19/21 09:45 DCW (Rec: 12/19/21 11:53 DCW [id number]) Shoulder Strength Shoulder Manual Muscle Testing Right Flexion 3- Fair- Abduction (C5) 3- Fair- External Rotation 2+ Poor+ Internal Rotation 4- Good- PT-OP-Q Treatments Start: 12/19/21 10:24 Freq: Status: Active Protocol: Document 02/01/22 16:02 [facility] (Rec: 02/01/22 18:16 [facility] [id number]) Cardio Equipment Upper Body Ergometer (UBE) Duration (Minutes) 5 Seat Position 11 Height 4 Therapeutic Exercises Supine Exercises 3 Supine Exercise Name PT-directed shoulder PROM Side right Prone Exercises 1 Prone Exercise Name Hughston's 6 exercises Side bilateral Resistance 3# (2#scaption & Habd & ER w/ thumb up) Reps/Minutes 10 Comments Prone on Green T-ball Manual Therapy Treatment Soft Tissue Mobilization 2 Body Location R UT & scalenes Mobilization Type Strumming,Sustained Pressure Intensity/Depth Moderate Body Position Sidelying 1 Body Location R Subscapularis Mobilization Type Sustained Pressure Body Position Supine Joint Mobilizations AC Direction AP FM Grade II GH Direction post, inf, distraction Grade II 1 Joint R Scapulothoracic Direction Lateral, med, tilts Grade III Body Position Supine PT-OP-T Assessment and Plan Start: 12/19/21 10:24 Freq: Status: Active Protocol: Document 02/01/22 16:02 [facility] (Rec: 02/01/22 18:16 [facility] [id number]) Physical Therapy Assessment Goals Two Impairment Pt unable to perform overhead activities Shelter Goal (LTG) Pt to demonstrate AROM right shoulder flexion and abduction >160? in order to return to her usual high-level hobby activities LTG Duration 02/18/22 One Impairment Pt does not have an appropriate home exercise program Short Term Goal (STG) Pt to be independent and compliant with an appropriate HEP STG Duration 01/19/22 Assessment Summary Assessment Pt required cues with exercise to slow down and control motion & to work on neutral neck position vs protraction when lifting the weights up. She showed improved ER after manual but has difficulty actively doing the ROM achieved by PT and ER ROM is better in scapular plane vs at side of body. Physical Therapy Plan Frequency and Duration Frequency of Treatment 2x/Week Duration of Treatment Two months Plan of Care Start Date 12/19/21 Plan of Care End Date 02/18/22 Next Visit Focus/Plan Next Note Type Treatment Note Next Visit Plan R shoulder ROM, strength
--- NOTE | 2022-02-08 17:32 | PT.OTN ---
Current Diagnoses Pain in right shoulder (02/08/22) Stiffness of right shoulder, not elsewhere classified (02/08/22) Encounter for other orthopedic aftercare (02/08/22) Physical Therapy Treatment Note PT-OP-A Visit Information Start: 12/19/21 10:24 Freq: Status: Active Protocol: Document 02/08/22 16:45 DC[facility] (Rec: 02/08/22 17:32 DCW [id number]) Out-Patient Physical Therapy Visit Information Visit Information Visit Type Treatment Note Visit Start Time 16:45 Visit Stop Time 17:30 Total Visit Minutes 45 Visit Number 15 Number of DRONE PILOT Visits 0 Evaluation Information Evaluation Date 12/19/21 PT-OP-B Current Condition Start: 12/19/21 10:24 Freq: Status: Active Protocol: Document 12/19/21 09:45 DCW (Rec: 12/19/21 11:51 DCW [id number]) Current Condition History of Current Condition Onset Date 11/03/21 Current Complaints s/p R Bankart repair History of Current Condition Pt is a 36 year old female presenting to skilled therapy six weeks s/p R Bankart repair following history of anterior shoulder dislocation. Pt reports she has been wearing a sling up until one week ago, when she had her post-op follow-up and was told she could remove it. Pt has been performing pendulums and PROM exercises at home. Experiences occasional pain at a/c joint with extended dangling of arm or reaching forward, notes this was an issue prior to dislocation. Pt presents with right shoulder stiffness and weakness. Most notable with posterior shoulder pain with reaching cross-body. Notes desire to return to performing overhead activities, get back to 100%. PT-OP-C Subjective Start: 12/19/21 10:24 Freq: Status: Active Protocol: Document 02/08/22 16:45 DC[facility] (Rec: 02/08/22 17:32 DCW [id number]) OP-PT Subjective Patient Comments Patient Comments Pt notes her shoulder is doing well. PT-OP-E Functional Tests Start: 12/19/21 10:24 Freq: Status: Active Protocol: Document 12/19/21 09:45 DCW (Rec: 12/19/21 11:53 DCW [id number]) Functional Tests Delmisey's Scratch Test Action 1- Left Posterior opposite shoulder Action 1- Right Anterior opposite shoulder Action 2- Left T5 Action 2- Right C4 Action 3- Left T 6 Action 3- Right Right SI PT-OP-F Manual Assessment Start: 12/19/21 11:54 Freq: Status: Active Protocol: Document 12/19/21 09:45 DC[facility] (Rec: 12/19/21 11:55 DCW [id number]) Manual Assessments Soft Tissue Assessment Soft Tissue Mobility Assessment Moderate tone with tenderness to palpation 2/4: Pain with wincing along right subscap. Increased tone due to compensatory movements in right upper trap and levator scap. PT-OP-K Range of Motion Start: 12/19/21 10:24 Freq: Status: Active Protocol: Document 12/19/21 09:45 DCW (Rec: 12/19/21 11:53 DCW [id number]) Shoulder Goniometric Range of Motion Shoulder Right Passive Shoulder ROM WFL No Testing Position Supine Flexion 120 Abduction 95 External Rotation at 0 degrees Abduction 0 Right Active Shoulder ROM WFL No Testing Position Sitting Flexion 111 Abduction 89 External Rotation at 0 degrees Abduction 0 Internal Rotation Behind Back (text) R SI PT-OP-M Strength Start: 12/19/21 10:24 Freq: Status: Active Protocol: Document 12/19/21 09:45 DCW (Rec: 12/19/21 11:53 DCW [id number]) Shoulder Strength Shoulder Manual Muscle Testing Right Flexion 3- Fair- Abduction (C5) 3- Fair- External Rotation 2+ Poor+ Internal Rotation 4- Good- PT-OP-Q Treatments Start: 12/19/21 10:24 Freq: Status: Active Protocol: Document 02/08/22 16:45 DCW (Rec: 02/08/22 17:32 DCW [id number]) Cardio Equipment Upper Body Ergometer (UBE) Duration (Minutes) 5 Seat Position 11 Height 4 Therapeutic Exercises Prone Exercises 2 Prone Exercise Name ER, Rows Side bilateral Resistance 3# Comments Prone on Green T-ball 1 Prone Exercise Name Hughston's Side bilateral Resistance 3# Comments Prone on Green T-ball Manual Therapy Treatment Soft Tissue Mobilization 2 Body Location R UT & scalenes Mobilization Type Strumming,Sustained Pressure Intensity/Depth Moderate Body Position Sidelying 1 Body Location R Subscapularis Mobilization Type Sustained Pressure Body Position Supine Joint Mobilizations 1 Joint R Scapulothoracic Direction Lateral Grade III Body Position Supine PT-OP-T Assessment and Plan Start: 12/19/21 10:24 Freq: Status: Active Protocol: Document 02/08/22 16:45 DC[facility] (Rec: 02/08/22 17:32 DCW [id number]) Physical Therapy Assessment Impairments Impairments Functional Activities, Functional Mobility,Pain,ROM, Soft Tissue Mobility,Strength, Tone Goals Two Impairment Pt unable to perform overhead activities Electrician Locomotive Goal (LTG) Pt to demonstrate AROM right shoulder flexion and abduction >160? in order to return to her usual high-level hobby activities LTG Duration 02/18/22 One Impairment Pt does not have an appropriate home exercise program Short Term Goal (STG) Pt to be independent and compliant with an appropriate HEP STG Duration 01/19/22 Assessment Summary Assessment Pt still most limited with ER, but is still improving in all planes. Physical Therapy Plan Frequency and Duration Frequency of Treatment 2x/Week Duration of Treatment Two months Plan of Care Start Date 12/19/21 Plan of Care End Date 02/18/22 Therapeutic Interventions Therapeutic Interventions Aquatic Therapy,Home Exercise Program,Joint Mobilizations, Manual Therapy,Neuromuscular Re-education,Patient/Caregiver Education,Self-Care/Home Management,Soft Tissue Mobilization,Therapeutic Activities,Therapeutic Exercises Modalities Cold Pack/Ice Massage,Electric Stimulation,Hot Packs, Ultrasound Next Visit Focus/Plan Next Note Type Treatment Note Next Visit Plan R shoulder ROM, strength
--- NOTE | 2022-02-13 10:28 | PT.OTN ---
Current Diagnoses Pain in right shoulder (02/13/22) Stiffness of right shoulder, not elsewhere classified (02/13/22) Encounter for other orthopedic aftercare (02/13/22) Physical Therapy Treatment Note PT-OP-A Visit Information Start: 12/19/21 10:24 Freq: Status: Active Protocol: Document 02/13/22 09:45 DC[facility] (Rec: 02/13/22 10:28 DCW [id number]) Out-Patient Physical Therapy Visit Information Visit Information Visit Type Treatment Note Visit Start Time 09:45 Visit Stop Time 10:30 Total Visit Minutes 45 Visit Number 46 Number of STRINGS TEACHER Visits 0 Evaluation Information Evaluation Date 12/19/21 PT-OP-B Current Condition Start: 12/19/21 10:24 Freq: Status: Active Protocol: Document 12/19/21 09:45 DCW (Rec: 12/19/21 11:51 DCW [id number]) Current Condition History of Current Condition Onset Date 11/03/21 Current Complaints s/p R Bankart repair History of Current Condition Pt is a 36 year old female presenting to skilled therapy six weeks s/p R Bankart repair following history of anterior shoulder dislocation. Pt reports she has been wearing a sling up until one week ago, when she had her post-op follow-up and was told she could remove it. Pt has been performing pendulums and PROM exercises at home. Experiences occasional pain at a/c joint with extended dangling of arm or reaching forward, notes this was an issue prior to dislocation. Pt presents with right shoulder stiffness and weakness. Most notable with posterior shoulder pain with reaching cross-body. Notes desire to return to performing overhead activities, get back to 100%. PT-OP-C Subjective Start: 12/19/21 10:24 Freq: Status: Active Protocol: Document 02/13/22 09:45 DCW (Rec: 02/13/22 10:28 DCW [id number]) OP-PT Subjective Patient Comments Patient Comments Pt doing well today, reports she had a good weekend. PT-OP-E Functional Tests Start: 12/19/21 10:24 Freq: Status: Active Protocol: Document 12/19/21 09:45 DCW (Rec: 12/19/21 11:53 DCW [id number]) Functional Tests Delmisey's Scratch Test Action 1- Left Posterior opposite shoulder Action 1- Right Anterior opposite shoulder Action 2- Left T5 Action 2- Right C4 Action 3- Left T 6 Action 3- Right Right SI PT-OP-F Manual Assessment Start: 12/19/21 11:54 Freq: Status: Active Protocol: Document 12/19/21 09:45 DCW (Rec: 12/19/21 11:55 DCW [id number]) Manual Assessments Soft Tissue Assessment Soft Tissue Mobility Assessment Moderate tone with tenderness to palpation 2/4: Pain with wincing along right subscap. Increased tone due to compensatory movements in right upper trap and levator scap. PT-OP-K Range of Motion Start: 12/19/21 10:24 Freq: Status: Active Protocol: Document 12/19/21 09:45 DCW (Rec: 12/19/21 11:53 DCW [id number]) Shoulder Goniometric Range of Motion Shoulder Right Passive Shoulder ROM WFL No Testing Position Supine Flexion 120 Abduction 95 External Rotation at 0 degrees Abduction 0 Right Active Shoulder ROM WFL No Testing Position Sitting Flexion 111 Abduction 89 External Rotation at 0 degrees Abduction 0 Internal Rotation Behind Back (text) R SI PT-OP-M Strength Start: 12/19/21 10:24 Freq: Status: Active Protocol: Document 12/19/21 09:45 DCW (Rec: 12/19/21 11:53 DCW [id number]) Shoulder Strength Shoulder Manual Muscle Testing Right Flexion 3- Fair- Abduction (C5) 3- Fair- External Rotation 2+ Poor+ Internal Rotation 4- Good- PT-OP-Q Treatments Start: 12/19/21 10:24 Freq: Status: Active Protocol: Document 02/13/22 09:45 DCW (Rec: 02/13/22 10:28 DCW [id number]) Cardio Equipment Upper Body Ergometer (UBE) Duration (Minutes) 5 Seat Position 10 Height 4 Gym Equipment Therapeutic Ball 1 Exercise Details Prone Walk-out Ball Size/Color Green - 65 cm Body Position Prone Therapeutic Exercises Supine Exercises 3 Supine Exercise Name PT-directed shoulder PROM Side right Prone Exercises 2 Prone Exercise Name ER, Rows Side bilateral Resistance 4# Comments Prone on Green T-ball 1 Prone Exercise Name Hughston's Side bilateral Resistance 4# Comments Prone on Green T-ball Manual Therapy Treatment Soft Tissue Mobilization 2 Body Location R UT & scalenes Mobilization Type Strumming,Sustained Pressure Intensity/Depth Moderate Body Position Sidelying 1 Body Location R Subscapularis Mobilization Type Sustained Pressure Body Position Supine Joint Mobilizations GH Direction post, inf, distraction Grade II 1 Joint R Scapulothoracic Direction Lateral Grade III Body Position Supine PT-OP-T Assessment and Plan Start: 12/19/21 10:24 Freq: Status: Active Protocol: Document 02/13/22 09:45 DCW (Rec: 02/13/22 10:28 DCW [id number]) Physical Therapy Assessment Impairments Impairments Functional Activities, Functional Mobility,Pain,ROM, Soft Tissue Mobility,Strength, Tone Goals Two Impairment Pt unable to perform overhead activities Oracle Adf Developer Goal (LTG) Pt to demonstrate AROM right shoulder flexion and abduction >160? in order to return to her usual high-level hobby activities LTG Duration 02/18/22 One Impairment Pt does not have an appropriate home exercise program Short Term Goal (STG) Pt to be independent and compliant with an appropriate HEP STG Duration 01/19/22 Assessment Summary Assessment Pt continuing to progress well , increasing passive ER approaching WNL Physical Therapy Plan Frequency and Duration Frequency of Treatment 2x/Week Duration of Treatment Two months Plan of Care Start Date 12/19/21 Plan of Care End Date 02/18/22 Therapeutic Interventions Therapeutic Interventions Aquatic Therapy,Home Exercise Program,Joint Mobilizations, Manual Therapy,Neuromuscular Re-education,Patient/Caregiver Education,Self-Care/Home Management,Soft Tissue Mobilization,Therapeutic Activities,Therapeutic Exercises Modalities Cold Pack/Ice Massage,Electric Stimulation,Hot Packs, Ultrasound Next Visit Focus/Plan Next Note Type Treatment Note Next Visit Plan R shoulder ROM, strength
--- NOTE | 2022-02-21 17:40 | PT.OTN ---
Current Diagnoses Pain in right shoulder (02/21/22) Stiffness of right shoulder, not elsewhere classified (02/21/22) Encounter for other orthopedic aftercare (02/21/22) Physical Therapy Treatment Note PT-OP-A Visit Information Start: 12/19/21 10:24 Freq: Status: Active Protocol: Document 02/21/22 16:45 DCW (Rec: 02/21/22 17:32 DCW [id number]) Out-Patient Physical Therapy Visit Information Visit Information Visit Type Treatment Note Visit Start Time 16:45 Visit Stop Time 17:30 Total Visit Minutes 45 Visit Number 17 Number of RACING CAR DRIVER Visits 0 Evaluation Information Evaluation Date 12/19/21 PT-OP-B Current Condition Start: 12/19/21 10:24 Freq: Status: Active Protocol: Document 12/19/21 09:45 DCW (Rec: 12/19/21 11:51 DCW [id number]) Current Condition History of Current Condition Onset Date 11/03/21 Current Complaints s/p R Bankart repair History of Current Condition Pt is a 36 year old female presenting to skilled therapy six weeks s/p R Bankart repair following history of anterior shoulder dislocation. Pt reports she has been wearing a sling up until one week ago, when she had her post-op follow-up and was told she could remove it. Pt has been performing pendulums and PROM exercises at home. Experiences occasional pain at a/c joint with extended dangling of arm or reaching forward, notes this was an issue prior to dislocation. Pt presents with right shoulder stiffness and weakness. Most notable with posterior shoulder pain with reaching cross-body. Notes desire to return to performing overhead activities, get back to 100%. PT-OP-C Subjective Start: 12/19/21 10:24 Freq: Status: Active Protocol: Document 02/21/22 16:45 DCW (Rec: 02/21/22 17:32 DCW [id number]) OP-PT Subjective Patient Comments Patient Comments Pt reports everything's good. PT-OP-E Functional Tests Start: 12/19/21 10:24 Freq: Status: Active Protocol: Document 02/21/22 16:45 DCW (Rec: 02/21/22 17:40 DCW [id number]) Functional Tests Apley's Scratch Test Action 1- Left Posterior opposite shoulder Action 1- Right Lateral opposite shoulder Action 2- Left T5 Action 2- Right T3 Action 3- Left T 6 Action 3- Right L3 PT-OP-F Manual Assessment Start: 12/19/21 11:54 Freq: Status: Active Protocol: Document 02/21/22 16:45 DCW (Rec: 02/21/22 17:40 DCW [id number]) Manual Assessments Soft Tissue Assessment Soft Tissue Mobility Assessment Mild tone with tenderness to palpation 09/27: Complaint of pain along right subscap. Slight increased tone due to compensatory movements in right upper trap and levator scap. PT-OP-K Range of Motion Start: 12/19/21 10:24 Freq: Status: Active Protocol: Document 02/21/22 16:45 DCW (Rec: 02/21/22 17:40 DCW [id number]) Shoulder Goniometric Range of Motion Shoulder Right Passive Shoulder ROM WFL No Testing Position Supine Flexion 176 Abduction 170 External Rotation at 0 degrees Abduction 45 Right Active Shoulder ROM WFL No Testing Position Sitting Flexion 140 Abduction 127 External Rotation at 0 degrees Abduction 0 PT-OP-M Strength Start: 12/19/21 10:24 Freq: Status: Active Protocol: Document 02/21/22 16:45 DCW (Rec: 02/21/22 17:40 DCW [id number]) Shoulder Strength Shoulder Manual Muscle Testing Right Flexion 3+ Fair+ Abduction (C5) 3 Fair External Rotation 3- Fair- Internal Rotation 4 Good PT-OP-Q Treatments Start: 12/19/21 10:24 Freq: Status: Active Protocol: Document 02/21/22 16:45 DCW (Rec: 02/21/22 17:32 DCW [id number]) Cardio Equipment Upper Body Ergometer (UBE) Duration (Minutes) 5 Seat Position 10 Height 4.5 Gym Equipment Therapeutic Ball 1 Exercise Details Prone Walk-out Ball Size/Color Green - 65 cm Body Position Prone Therapeutic Exercises Supine Exercises 3 Supine Exercise Name PT-directed shoulder PROM Side right Prone Exercises 2 Prone Exercise Name ER, Rows Side bilateral Resistance 4# Comments Prone on Green T-ball 1 Prone Exercise Name Hughston's Side bilateral Resistance 4# Comments Prone on Green T-ball Standing Exercises 1 Standing Exercise Name Chop/Lift Side bilateral Resistance Lv 3 Manual Therapy Treatment Soft Tissue Mobilization 2 Body Location R UT & scalenes Mobilization Type Strumming,Sustained Pressure Intensity/Depth Moderate Body Position Sidelying 1 Body Location R Subscapularis Mobilization Type Sustained Pressure Body Position Supine Joint Mobilizations GH Direction post, inf, distraction Grade II 1 Joint R Scapulothoracic Direction Lateral Grade III Body Position Supine PT-OP-T Assessment and Plan Start: 12/19/21 10:24 Freq: Status: Active Protocol: Document 02/21/22 16:45 DCW (Rec: 02/21/22 17:32 DCW [id number]) Physical Therapy Assessment Impairments Impairments Functional Activities, Functional Mobility,Pain,ROM, Soft Tissue Mobility,Strength, Tone Goals Two Impairment Pt unable to perform overhead activities Roller Coaster Designer Goal (LTG) Pt to demonstrate AROM right shoulder flexion and abduction >160? in order to return to her usual high-level hobby activities LTG Duration 04/23/22 One Impairment Pt does not have an appropriate home exercise program Short Term Goal (STG) Pt to be independent and compliant with an appropriate HEP STG Duration 03/23/22 Assessment Summary Assessment Pt progressing very well with mobility and strength in right shoulder, increasing independent activity level. Physical Therapy Plan Frequency and Duration Frequency of Treatment 2x/Week Duration of Treatment Two months Plan of Care Start Date 02/21/22 Plan of Care End Date 04/23/22 Therapeutic Interventions Therapeutic Interventions Aquatic Therapy,Home Exercise Program,Joint Mobilizations, Manual Therapy,Neuromuscular Re-education,Patient/Caregiver Education,Self-Care/Home Management,Soft Tissue Mobilization,Therapeutic Activities,Therapeutic Exercises Modalities Cold Pack/Ice Massage,Electric Stimulation,Hot Packs, Ultrasound Next Visit Focus/Plan Next Note Type Treatment Note Next Visit Plan R shoulder ROM, strength
--- NOTE | 2022-02-21 17:40 | PT.OPPOC ---
Physical, Occupational & Speech Therapy At [facility] Current Diagnoses Pain in right shoulder (02/21/22) Stiffness of right shoulder, not elsewhere classified (02/21/22) Encounter for other orthopedic aftercare (02/21/22) Visit Care Team Role Provider Type Caden Gimenez MD Family Provider Physician Primary Care Provider Specialty: Family Practice Address: [address] [place] [address], [id number] Email: [email or web address] Cesar Hancock MD Attending Provider Non-Staff Referring Provider Specialty: Orthopedics Address: [address] [place] [address], [id number] Email: Plan Of Care PT-OP-T Assessment and Plan Start: 12/19/21 10:24 Freq: Status: Active Protocol: Document 02/21/22 16:45 DCW (Rec: 02/21/22 17:32 DCW [id number]) Physical Therapy Assessment Impairments Impairments Functional Activities, Functional Mobility,Pain,ROM, Soft Tissue Mobility,Strength, Tone Goals Two Impairment Pt unable to perform overhead activities Group Home Goal (LTG) Pt to demonstrate AROM right shoulder flexion and abduction >160? in order to return to her usual high-level hobby activities LTG Duration 04/23/22 One Impairment Pt does not have an appropriate home exercise program Short Term Goal (STG) Pt to be independent and compliant with an appropriate HEP STG Duration 03/23/22 Assessment Summary Assessment Pt progressing very well with mobility and strength in right shoulder, increasing independent activity level. Physical Therapy Plan Frequency and Duration Frequency of Treatment 2x/Week Duration of Treatment Two months Plan of Care Start Date 02/21/22 Plan of Care End Date 04/23/22 Therapeutic Interventions Therapeutic Interventions Aquatic Therapy,Home Exercise Program,Joint Mobilizations, Manual Therapy,Neuromuscular Re-education,Patient/Caregiver Education,Self-Care/Home Management,Soft Tissue Mobilization,Therapeutic Activities,Therapeutic Exercises Modalities Cold Pack/Ice Massage,Electric Stimulation,Hot Packs, Ultrasound Next Visit Focus/Plan Next Note Type Treatment Note Next Visit Plan R shoulder ROM, strength Plan of Care Dates Plan of Care Start Date 02/21/22 Plan of Care End Date 04/23/22 Electronically Signed by: Mook Harkins, MARBIN 02/21/22 1035 If you are in agreement with this Plan of Care, please return a signed and dated copy. I have reviewed this Plan of Care and certify that the skilled therapy services above are required to meet the patient?s needs. Physician Signature Date Printed Name and Credentials Clinical Instructor Signature Printed Name and Credentials
--- NOTE | 2022-02-28 17:35 | PT.OTN ---
Current Diagnoses Pain in right shoulder (02/28/22) Stiffness of right shoulder, not elsewhere classified (02/28/22) Encounter for other orthopedic aftercare (02/28/22) Physical Therapy Treatment Note PT-OP-A Visit Information Start: 12/19/21 10:24 Freq: Status: Active Protocol: Document 02/28/22 16:45 DCW (Rec: 02/28/22 17:35 DCW [id number]) Out-Patient Physical Therapy Visit Information Visit Information Visit Type Treatment Note Visit Start Time 16:45 Visit Stop Time 17:30 Total Visit Minutes 45 Visit Number 18 Number of INTERNET SALES ASSOCIATE Visits 0 Evaluation Information Evaluation Date 12/19/21 PT-OP-B Current Condition Start: 12/19/21 10:24 Freq: Status: Active Protocol: Document 12/19/21 09:45 DCW (Rec: 12/19/21 11:51 DCW [id number]) Current Condition History of Current Condition Onset Date 11/03/21 Current Complaints s/p R Bankart repair History of Current Condition Pt is a 36 year old female presenting to skilled therapy six weeks s/p R Bankart repair following history of anterior shoulder dislocation. Pt reports she has been wearing a sling up until one week ago, when she had her post-op follow-up and was told she could remove it. Pt has been performing pendulums and PROM exercises at home. Experiences occasional pain at a/c joint with extended dangling of arm or reaching forward, notes this was an issue prior to dislocation. Pt presents with right shoulder stiffness and weakness. Most notable with posterior shoulder pain with reaching cross-body. Notes desire to return to performing overhead activities, get back to 100%. PT-OP-C Subjective Start: 12/19/21 10:24 Freq: Status: Active Protocol: Document 02/28/22 16:45 DCW (Rec: 02/28/22 17:35 DCW [id number]) OP-PT Subjective Patient Comments Patient Comments Pt pretty good today. PT-OP-E Functional Tests Start: 12/19/21 10:24 Freq: Status: Active Protocol: Document 02/21/22 16:45 DCW (Rec: 02/21/22 17:40 DCW [id number]) Functional Tests Apley's Scratch Test Action 1- Left Posterior opposite shoulder Action 1- Right Lateral opposite shoulder Action 2- Left T5 Action 2- Right T3 Action 3- Left T 6 Action 3- Right L3 PT-OP-F Manual Assessment Start: 12/19/21 11:54 Freq: Status: Active Protocol: Document 02/21/22 16:45 DCW (Rec: 02/21/22 17:40 DCW [id number]) Manual Assessments Soft Tissue Assessment Soft Tissue Mobility Assessment Mild tone with tenderness to palpation 09/27: Complaint of pain along right subscap. Slight increased tone due to compensatory movements in right upper trap and levator scap. PT-OP-K Range of Motion Start: 12/19/21 10:24 Freq: Status: Active Protocol: Document 02/21/22 16:45 DCW (Rec: 02/21/22 17:40 DCW [id number]) Shoulder Goniometric Range of Motion Shoulder Right Passive Shoulder ROM WFL No Testing Position Supine Flexion 176 Abduction 170 External Rotation at 0 degrees Abduction 45 Right Active Shoulder ROM WFL No Testing Position Sitting Flexion 140 Abduction 127 External Rotation at 0 degrees Abduction 0 PT-OP-M Strength Start: 12/19/21 10:24 Freq: Status: Active Protocol: Document 02/21/22 16:45 DCW (Rec: 02/21/22 17:40 DCW [id number]) Shoulder Strength Shoulder Manual Muscle Testing Right Flexion 3+ Fair+ Abduction (C5) 3 Fair External Rotation 3- Fair- Internal Rotation 4 Good PT-OP-Q Treatments Start: 12/19/21 10:24 Freq: Status: Active Protocol: Document 02/28/22 16:45 DCW (Rec: 02/28/22 17:35 DCW [id number]) Cardio Equipment Upper Body Ergometer (UBE) Duration (Minutes) 5 Seat Position 10 Height 5 Gym Equipment Cable Column (Body Solid) Lat Pull Down Resistance 20# Therapeutic Ball 1 Exercise Details Prone Walk-out Ball Size/Color Green - 65 cm Body Position Prone Therapeutic Exercises Supine Exercises 3 Supine Exercise Name PT-directed shoulder PROM Side right Prone Exercises 2 Prone Exercise Name ER, Rows Side bilateral Resistance 4# Comments Prone on Green T-ball 1 Prone Exercise Name Hughston's Side bilateral Resistance 4# Comments Prone on Green T-ball Standing Exercises 3 Standing Exercise Name Wall push-ups plus Comments <> and W hand positions 2 Standing Exercise Name Shoulder Press Side bilateral Resistance 4# 1 Standing Exercise Name Chop/Lift Side bilateral Resistance Lv 3 Manual Therapy Treatment Soft Tissue Mobilization 2 Body Location R UT & scalenes Mobilization Type Strumming,Sustained Pressure Intensity/Depth Moderate Body Position Sidelying 1 Body Location R Subscapularis Mobilization Type Sustained Pressure Body Position Supine PT-OP-T Assessment and Plan Start: 12/19/21 10:24 Freq: Status: Active Protocol: Document 02/28/22 16:45 DCW (Rec: 02/28/22 17:35 DCW [id number]) Physical Therapy Assessment Impairments Impairments Functional Activities, Functional Mobility,Pain,ROM, Soft Tissue Mobility,Strength, Tone Goals Two Impairment Pt unable to perform overhead activities Wild Oyster Harvester Goal (LTG) Pt to demonstrate AROM right shoulder flexion and abduction >160? in order to return to her usual high-level hobby activities LTG Duration 04/23/22 One Impairment Pt does not have an appropriate home exercise program Short Term Goal (STG) Pt to be independent and compliant with an appropriate HEP STG Duration 03/23/22 Assessment Summary Assessment ROM continues to improve, nearing WNL, additional strengthening exercises added today, pt responded well. Physical Therapy Plan Frequency and Duration Frequency of Treatment 2x/Week Duration of Treatment Two months Plan of Care Start Date 02/21/22 Plan of Care End Date 04/23/22 Therapeutic Interventions Therapeutic Interventions Aquatic Therapy,Home Exercise Program,Joint Mobilizations, Manual Therapy,Neuromuscular Re-education,Patient/Caregiver Education,Self-Care/Home Management,Soft Tissue Mobilization,Therapeutic Activities,Therapeutic Exercises Modalities Cold Pack/Ice Massage,Electric Stimulation,Hot Packs, Ultrasound Next Visit Focus/Plan Next Note Type Treatment Note Next Visit Plan R shoulder ROM, strength
--- NOTE | 2022-03-06 17:31 | PT.OTN ---
Current Diagnoses Pain in right shoulder (03/06/22) Stiffness of right shoulder, not elsewhere classified (03/06/22) Encounter for other orthopedic aftercare (03/06/22) Physical Therapy Treatment Note PT-OP-A Visit Information Start: 12/19/21 10:24 Freq: Status: Active Protocol: Document 03/06/22 16:46 DCW (Rec: 03/06/22 17:31 DCW [id number]) Out-Patient Physical Therapy Visit Information Visit Information Visit Type Treatment Note Visit Start Time 16:46 Visit Stop Time 17:30 Total Visit Minutes 44 Visit Number 19 Number of FLEET SERVICE CLERK Visits 0 Evaluation Information Evaluation Date 12/19/21 PT-OP-B Current Condition Start: 12/19/21 10:24 Freq: Status: Active Protocol: Document 12/19/21 09:45 DCW (Rec: 12/19/21 11:51 DCW [id number]) Current Condition History of Current Condition Onset Date 11/03/21 Current Complaints s/p R Bankart repair History of Current Condition Pt is a 36 year old female presenting to skilled therapy six weeks s/p R Bankart repair following history of anterior shoulder dislocation. Pt reports she has been wearing a sling up until one week ago, when she had her post-op follow-up and was told she could remove it. Pt has been performing pendulums and PROM exercises at home. Experiences occasional pain at a/c joint with extended dangling of arm or reaching forward, notes this was an issue prior to dislocation. Pt presents with right shoulder stiffness and weakness. Most notable with posterior shoulder pain with reaching cross-body. Notes desire to return to performing overhead activities, get back to 100%. PT-OP-C Subjective Start: 12/19/21 10:24 Freq: Status: Active Protocol: Document 03/06/22 16:46 DCW (Rec: 03/06/22 17:31 DCW [id number]) OP-PT Subjective Patient Comments Patient Comments Feels perfect today, was able to throw a frisbee a little bit over the weekend. PT-OP-E Functional Tests Start: 12/19/21 10:24 Freq: Status: Active Protocol: Document 02/21/22 16:45 DCW (Rec: 02/21/22 17:40 DCW [id number]) Functional Tests Apley's Scratch Test Action 1- Left Posterior opposite shoulder Action 1- Right Lateral opposite shoulder Action 2- Left T5 Action 2- Right T3 Action 3- Left T 6 Action 3- Right L3 PT-OP-F Manual Assessment Start: 12/19/21 11:54 Freq: Status: Active Protocol: Document 02/21/22 16:45 DCW (Rec: 02/21/22 17:40 DCW [id number]) Manual Assessments Soft Tissue Assessment Soft Tissue Mobility Assessment Mild tone with tenderness to palpation 09/27: Complaint of pain along right subscap. Slight increased tone due to compensatory movements in right upper trap and levator scap. PT-OP-K Range of Motion Start: 12/19/21 10:24 Freq: Status: Active Protocol: Document 02/21/22 16:45 DCW (Rec: 02/21/22 17:40 DCW [id number]) Shoulder Goniometric Range of Motion Shoulder Right Passive Shoulder ROM WFL No Testing Position Supine Flexion 176 Abduction 170 External Rotation at 0 degrees Abduction 45 Right Active Shoulder ROM WFL No Testing Position Sitting Flexion 140 Abduction 127 External Rotation at 0 degrees Abduction 0 PT-OP-M Strength Start: 12/19/21 10:24 Freq: Status: Active Protocol: Document 02/21/22 16:45 DCW (Rec: 02/21/22 17:40 DCW [id number]) Shoulder Strength Shoulder Manual Muscle Testing Right Flexion 3+ Fair+ Abduction (C5) 3 Fair External Rotation 3- Fair- Internal Rotation 4 Good PT-OP-Q Treatments Start: 12/19/21 10:24 Freq: Status: Active Protocol: Document 03/06/22 16:46 DCW (Rec: 03/06/22 17:31 DCW [id number]) Cardio Equipment Upper Body Ergometer (UBE) Duration (Minutes) 5 Seat Position 10 Height 5 Gym Equipment Cable Column (Body Solid) Lat Pull Down Resistance 30# Therapeutic Exercises Supine Exercises 3 Supine Exercise Name PT-directed shoulder PROM Side right Prone Exercises 2 Prone Exercise Name ER (90/90), Rows Side bilateral Resistance 4# Comments Prone on Green T-ball 1 Prone Exercise Name Hughston's Side bilateral Resistance 4# Comments Prone on Green T-ball Standing Exercises 3 Standing Exercise Name Wall push-ups plus Comments <> and W hand positions 2 Standing Exercise Name Shoulder Press Side bilateral Resistance 4# Manual Therapy Treatment Soft Tissue Mobilization 2 Body Location R UT & scalenes Mobilization Type Strumming,Sustained Pressure Intensity/Depth Moderate Body Position Sidelying 1 Body Location R Subscapularis Mobilization Type Sustained Pressure Body Position Supine Joint Mobilizations 1 Joint R Scapulothoracic Direction Lateral Grade III Body Position Supine PT-OP-T Assessment and Plan Start: 12/19/21 10:24 Freq: Status: Active Protocol: Document 03/06/22 16:46 DCW (Rec: 03/06/22 17:31 DCW [id number]) Physical Therapy Assessment Impairments Impairments Functional Activities, Functional Mobility,Pain,ROM, Soft Tissue Mobility,Strength, Tone Goals Two Impairment Pt unable to perform overhead activities Fpc Goal (LTG) Pt to demonstrate AROM right shoulder flexion and abduction >160? in order to return to her usual high-level hobby activities LTG Duration 04/23/22 One Impairment Pt does not have an appropriate home exercise program Short Term Goal (STG) Pt to be independent and compliant with an appropriate HEP STG Duration 03/23/22 Assessment Summary Assessment ER continues to improve, still slightly limited, but approaching WNL with PROM. Pt demonstrates some weakness and deconditioning in all planes. Physical Therapy Plan Frequency and Duration Frequency of Treatment 2x/Week Duration of Treatment Two months Plan of Care Start Date 02/21/22 Plan of Care End Date 04/23/22 Therapeutic Interventions Therapeutic Interventions Aquatic Therapy,Home Exercise Program,Joint Mobilizations, Manual Therapy,Neuromuscular Re-education,Patient/Caregiver Education,Self-Care/Home Management,Soft Tissue Mobilization,Therapeutic Activities,Therapeutic Exercises Modalities Cold Pack/Ice Massage,Electric Stimulation,Hot Packs, Ultrasound Next Visit Focus/Plan Next Note Type Treatment Note Next Visit Plan R shoulder ROM, strength
--- NOTE | 2022-03-08 17:33 | PT.OTN ---
Current Diagnoses Pain in right shoulder (03/08/22) Stiffness of right shoulder, not elsewhere classified (03/08/22) Encounter for other orthopedic aftercare (03/08/22) Physical Therapy Treatment Note PT-OP-A Visit Information Start: 12/19/21 10:24 Freq: Status: Active Protocol: Document 03/08/22 16:45 DCW (Rec: 03/08/22 17:33 DCW [id number]) Out-Patient Physical Therapy Visit Information Visit Information Visit Type Treatment Note Visit Start Time 16:45 Visit Stop Time 17:30 Total Visit Minutes 45 Visit Number 20 Number of NATURE PHOTOGRAPHER Visits 0 Evaluation Information Evaluation Date 12/19/21 PT-OP-B Current Condition Start: 12/19/21 10:24 Freq: Status: Active Protocol: Document 12/19/21 09:45 DCW (Rec: 12/19/21 11:51 DCW [id number]) Current Condition History of Current Condition Onset Date 11/03/21 Current Complaints s/p R Bankart repair History of Current Condition Pt is a 36 year old female presenting to skilled therapy six weeks s/p R Bankart repair following history of anterior shoulder dislocation. Pt reports she has been wearing a sling up until one week ago, when she had her post-op follow-up and was told she could remove it. Pt has been performing pendulums and PROM exercises at home. Experiences occasional pain at a/c joint with extended dangling of arm or reaching forward, notes this was an issue prior to dislocation. Pt presents with right shoulder stiffness and weakness. Most notable with posterior shoulder pain with reaching cross-body. Notes desire to return to performing overhead activities, get back to 100%. PT-OP-C Subjective Start: 12/19/21 10:24 Freq: Status: Active Protocol: Document 03/08/22 16:45 DCW (Rec: 03/08/22 17:33 DCW [id number]) OP-PT Subjective Patient Comments Patient Comments Pt performed some yoga earlier , notes she felt a little tight, but overall is doing well. PT-OP-E Functional Tests Start: 12/19/21 10:24 Freq: Status: Active Protocol: Document 02/21/22 16:45 DCW (Rec: 02/21/22 17:40 DCW [id number]) Functional Tests Apley's Scratch Test Action 1- Left Posterior opposite shoulder Action 1- Right Lateral opposite shoulder Action 2- Left T5 Action 2- Right T3 Action 3- Left T 6 Action 3- Right L3 PT-OP-F Manual Assessment Start: 12/19/21 11:54 Freq: Status: Active Protocol: Document 02/21/22 16:45 DCW (Rec: 02/21/22 17:40 DCW [id number]) Manual Assessments Soft Tissue Assessment Soft Tissue Mobility Assessment Mild tone with tenderness to palpation 09/27: Complaint of pain along right subscap. Slight increased tone due to compensatory movements in right upper trap and levator scap. PT-OP-K Range of Motion Start: 12/19/21 10:24 Freq: Status: Active Protocol: Document 02/21/22 16:45 DCW (Rec: 02/21/22 17:40 DCW [id number]) Shoulder Goniometric Range of Motion Shoulder Right Passive Shoulder ROM WFL No Testing Position Supine Flexion 176 Abduction 170 External Rotation at 0 degrees Abduction 45 Right Active Shoulder ROM WFL No Testing Position Sitting Flexion 140 Abduction 127 External Rotation at 0 degrees Abduction 0 PT-OP-M Strength Start: 12/19/21 10:24 Freq: Status: Active Protocol: Document 02/21/22 16:45 DCW (Rec: 02/21/22 17:40 DCW [id number]) Shoulder Strength Shoulder Manual Muscle Testing Right Flexion 3+ Fair+ Abduction (C5) 3 Fair External Rotation 3- Fair- Internal Rotation 4 Good PT-OP-Q Treatments Start: 12/19/21 10:24 Freq: Status: Active Protocol: Document 03/08/22 16:45 DCW (Rec: 03/08/22 17:33 DCW [id number]) Gym Equipment Cable Column (Body Solid) Lat Pull Down Resistance 30# Shuttle Rebound Ball toss Exercise Details Green ball toss at rebounder Therapeutic Ball 1 Exercise Details Prone Walk-out Ball Size/Color Green - 65 cm Body Position Prone Therapeutic Exercises Supine Exercises 3 Supine Exercise Name PT-directed shoulder PROM Side right Prone Exercises 2 Prone Exercise Name ER (90/90), Rows Side bilateral Resistance 4# Comments Prone on Green T-ball 1 Prone Exercise Name Hughston's Side bilateral Resistance 4# Comments Prone on Green T-ball Standing Exercises 2 Standing Exercise Name Shoulder Press Side bilateral Resistance 4# Other Exercises 3 Other Exercise Name Table push-ups Manual Therapy Treatment Soft Tissue Mobilization 2 Body Location R UT & scalenes Mobilization Type Strumming,Sustained Pressure Intensity/Depth Moderate Body Position Sidelying 1 Body Location R Subscapularis Mobilization Type Sustained Pressure Body Position Supine Joint Mobilizations 1 Joint R Scapulothoracic Direction Lateral Grade III Body Position Supine PT-OP-T Assessment and Plan Start: 12/19/21 10:24 Freq: Status: Active Protocol: Document 03/08/22 16:45 DCW (Rec: 03/08/22 17:33 DCW [id number]) Physical Therapy Assessment Impairments Impairments Functional Activities, Functional Mobility,Pain,ROM, Soft Tissue Mobility,Strength, Tone Goals Two Impairment Pt unable to perform overhead activities Assisted Goal (LTG) Pt to demonstrate AROM right shoulder flexion and abduction >160? in order to return to her usual high-level hobby activities LTG Duration 04/23/22 One Impairment Pt does not have an appropriate home exercise program Short Term Goal (STG) Pt to be independent and compliant with an appropriate HEP STG Duration 03/23/22 Assessment Summary Assessment Pt still fatigues quickly, limited activity tolerance, but overall showing good improvement. Physical Therapy Plan Frequency and Duration Frequency of Treatment 2x/Week Duration of Treatment Two months Plan of Care Start Date 02/21/22 Plan of Care End Date 04/23/22 Therapeutic Interventions Therapeutic Interventions Aquatic Therapy,Home Exercise Program,Joint Mobilizations, Manual Therapy,Neuromuscular Re-education,Patient/Caregiver Education,Self-Care/Home Management,Soft Tissue Mobilization,Therapeutic Activities,Therapeutic Exercises Modalities Cold Pack/Ice Massage,Electric Stimulation,Hot Packs, Ultrasound Next Visit Focus/Plan Next Note Type Treatment Note Next Visit Plan R shoulder ROM, strength
--- NOTE | 2022-03-16 17:29 | PT.OTN ---
Current Diagnoses Pain in right shoulder (03/16/22) Stiffness of right shoulder, not elsewhere classified (03/16/22) Encounter for other orthopedic aftercare (03/16/22) Physical Therapy Treatment Note PT-OP-A Visit Information Start: 12/19/21 10:24 Freq: Status: Active Protocol: Document 03/16/22 16:45 DCW (Rec: 03/16/22 17:29 DCW [id number]) Out-Patient Physical Therapy Visit Information Visit Information Visit Type Treatment Note Visit Start Time 16:45 Visit Stop Time 17:30 Total Visit Minutes 45 Visit Number 21 Number of SOCIAL WORK ASSISTANT Visits 0 Evaluation Information Evaluation Date 12/19/21 PT-OP-B Current Condition Start: 12/19/21 10:24 Freq: Status: Active Protocol: Document 12/19/21 09:45 DCW (Rec: 12/19/21 11:51 DCW [id number]) Current Condition History of Current Condition Onset Date 11/03/21 Current Complaints s/p R Bankart repair History of Current Condition Pt is a 36 year old female presenting to skilled therapy six weeks s/p R Bankart repair following history of anterior shoulder dislocation. Pt reports she has been wearing a sling up until one week ago, when she had her post-op follow-up and was told she could remove it. Pt has been performing pendulums and PROM exercises at home. Experiences occasional pain at a/c joint with extended dangling of arm or reaching forward, notes this was an issue prior to dislocation. Pt presents with right shoulder stiffness and weakness. Most notable with posterior shoulder pain with reaching cross-body. Notes desire to return to performing overhead activities, get back to 100%. PT-OP-C Subjective Start: 12/19/21 10:24 Freq: Status: Active Protocol: Document 03/16/22 16:45 DCW (Rec: 03/16/22 17:29 DCW [id number]) OP-PT Subjective Patient Comments Patient Comments Pt reports she is feeling excellent. PT-OP-E Functional Tests Start: 12/19/21 10:24 Freq: Status: Active Protocol: Document 02/21/22 16:45 DCW (Rec: 02/21/22 17:40 DCW [id number]) Functional Tests Apley's Scratch Test Action 1- Left Posterior opposite shoulder Action 1- Right Lateral opposite shoulder Action 2- Left T5 Action 2- Right T3 Action 3- Left T 6 Action 3- Right L3 PT-OP-F Manual Assessment Start: 12/19/21 11:54 Freq: Status: Active Protocol: Document 02/21/22 16:45 DCW (Rec: 02/21/22 17:40 DCW [id number]) Manual Assessments Soft Tissue Assessment Soft Tissue Mobility Assessment Mild tone with tenderness to palpation 09/27: Complaint of pain along right subscap. Slight increased tone due to compensatory movements in right upper trap and levator scap. PT-OP-K Range of Motion Start: 12/19/21 10:24 Freq: Status: Active Protocol: Document 02/21/22 16:45 DCW (Rec: 02/21/22 17:40 DCW [id number]) Shoulder Goniometric Range of Motion Shoulder Right Passive Shoulder ROM WFL No Testing Position Supine Flexion 176 Abduction 170 External Rotation at 0 degrees Abduction 45 Right Active Shoulder ROM WFL No Testing Position Sitting Flexion 140 Abduction 127 External Rotation at 0 degrees Abduction 0 PT-OP-M Strength Start: 12/19/21 10:24 Freq: Status: Active Protocol: Document 02/21/22 16:45 DCW (Rec: 02/21/22 17:40 DCW [id number]) Shoulder Strength Shoulder Manual Muscle Testing Right Flexion 3+ Fair+ Abduction (C5) 3 Fair External Rotation 3- Fair- Internal Rotation 4 Good PT-OP-Q Treatments Start: 12/19/21 10:24 Freq: Status: Active Protocol: Document 03/16/22 16:45 DCW (Rec: 03/16/22 17:29 DCW [id number]) Cardio Equipment Upper Body Ergometer (UBE) Duration (Minutes) 5 Seat Position 10 Height 5 Gym Equipment Therapeutic Ball 1 Exercise Details Prone Walk-out /c Resistance Ball Size/Color Green - 65 cm Yellow T-band Body Position Prone Therapeutic Exercises Supine Exercises 3 Supine Exercise Name PT-directed shoulder PROM Side right Prone Exercises 2 Prone Exercise Name ER (90/90), Rows Side bilateral Resistance 5# Comments Prone on Green T-ball 1 Prone Exercise Name Hughston's Side bilateral Resistance 5# Comments Prone on Green T-ball Standing Exercises 2 Standing Exercise Name Shoulder Press Side bilateral Resistance 5# Other Exercises 3 Other Exercise Name Table push-ups Manual Therapy Treatment Soft Tissue Mobilization 2 Body Location R UT & scalenes Mobilization Type Strumming,Sustained Pressure Intensity/Depth Moderate Body Position Sidelying 1 Body Location R Subscapularis Mobilization Type Sustained Pressure Body Position Supine Joint Mobilizations 1 Joint R Scapulothoracic Direction Lateral Grade III Body Position Supine PT-OP-T Assessment and Plan Start: 12/19/21 10:24 Freq: Status: Active Protocol: Document 03/16/22 16:45 DCW (Rec: 03/16/22 17:29 DCW [id number]) Physical Therapy Assessment Impairments Impairments Functional Activities, Functional Mobility,Pain,ROM, Soft Tissue Mobility,Strength, Tone Goals Two Impairment Pt unable to perform overhead activities Custodial Goal (LTG) Pt to demonstrate AROM right shoulder flexion and abduction >160? in order to return to her usual high-level hobby activities LTG Duration 04/23/22 One Impairment Pt does not have an appropriate home exercise program Short Term Goal (STG) Pt to be independent and compliant with an appropriate HEP STG Duration 03/23/22 Assessment Summary Assessment Pt shoulder ER getting very close to WNL, still tight at end-range, pt agreeable to a few more weeks of PT scheduled to get past current limitations. Physical Therapy Plan Frequency and Duration Frequency of Treatment 2x/Week Duration of Treatment Two months Plan of Care Start Date 02/21/22 Plan of Care End Date 04/23/22 Therapeutic Interventions Therapeutic Interventions Aquatic Therapy,Home Exercise Program,Joint Mobilizations, Manual Therapy,Neuromuscular Re-education,Patient/Caregiver Education,Self-Care/Home Management,Soft Tissue Mobilization,Therapeutic Activities,Therapeutic Exercises Modalities Cold Pack/Ice Massage,Electric Stimulation,Hot Packs, Ultrasound Next Visit Focus/Plan Next Note Type Treatment Note Next Visit Plan R shoulder ROM, strength
--- NOTE | 2022-03-21 17:27 | PT.OTN ---
Current Diagnoses Pain in right shoulder (03/21/22) Stiffness of right shoulder, not elsewhere classified (03/21/22) Encounter for other orthopedic aftercare (03/21/22) Physical Therapy Treatment Note PT-OP-A Visit Information Start: 12/19/21 10:24 Freq: Status: Active Protocol: Document 03/21/22 16:45 DCW (Rec: 03/21/22 17:27 DCW [id number]) Out-Patient Physical Therapy Visit Information Visit Information Visit Type Treatment Note Visit Start Time 16:45 Visit Stop Time 17:30 Total Visit Minutes 45 Visit Number 22 Number of LEATHER CARTRIDGE BELT MAKER Visits 0 Evaluation Information Evaluation Date 12/19/21 PT-OP-B Current Condition Start: 12/19/21 10:24 Freq: Status: Active Protocol: Document 12/19/21 09:45 DCW (Rec: 12/19/21 11:51 DCW [id number]) Current Condition History of Current Condition Onset Date 11/03/21 Current Complaints s/p R Bankart repair History of Current Condition Pt is a 36 year old female presenting to skilled therapy six weeks s/p R Bankart repair following history of anterior shoulder dislocation. Pt reports she has been wearing a sling up until one week ago, when she had her post-op follow-up and was told she could remove it. Pt has been performing pendulums and PROM exercises at home. Experiences occasional pain at a/c joint with extended dangling of arm or reaching forward, notes this was an issue prior to dislocation. Pt presents with right shoulder stiffness and weakness. Most notable with posterior shoulder pain with reaching cross-body. Notes desire to return to performing overhead activities, get back to 100%. PT-OP-C Subjective Start: 12/19/21 10:24 Freq: Status: Active Protocol: Document 03/21/22 16:45 DCW (Rec: 03/21/22 17:27 DCW [id number]) OP-PT Subjective Patient Comments Patient Comments Arm has been feeling great, recovered well after some slight achiness following last visit. PT-OP-E Functional Tests Start: 12/19/21 10:24 Freq: Status: Active Protocol: Document 02/21/22 16:45 DCW (Rec: 02/21/22 17:40 DCW [id number]) Functional Tests Apley's Scratch Test Action 1- Left Posterior opposite shoulder Action 1- Right Lateral opposite shoulder Action 2- Left T5 Action 2- Right T3 Action 3- Left T 6 Action 3- Right L3 PT-OP-F Manual Assessment Start: 12/19/21 11:54 Freq: Status: Active Protocol: Document 02/21/22 16:45 DCW (Rec: 02/21/22 17:40 DCW [id number]) Manual Assessments Soft Tissue Assessment Soft Tissue Mobility Assessment Mild tone with tenderness to palpation 09/27: Complaint of pain along right subscap. Slight increased tone due to compensatory movements in right upper trap and levator scap. PT-OP-K Range of Motion Start: 12/19/21 10:24 Freq: Status: Active Protocol: Document 02/21/22 16:45 DCW (Rec: 02/21/22 17:40 DCW [id number]) Shoulder Goniometric Range of Motion Shoulder Right Passive Shoulder ROM WFL No Testing Position Supine Flexion 176 Abduction 170 External Rotation at 0 degrees Abduction 45 Right Active Shoulder ROM WFL No Testing Position Sitting Flexion 140 Abduction 127 External Rotation at 0 degrees Abduction 0 PT-OP-M Strength Start: 12/19/21 10:24 Freq: Status: Active Protocol: Document 02/21/22 16:45 DCW (Rec: 02/21/22 17:40 DCW [id number]) Shoulder Strength Shoulder Manual Muscle Testing Right Flexion 3+ Fair+ Abduction (C5) 3 Fair External Rotation 3- Fair- Internal Rotation 4 Good PT-OP-Q Treatments Start: 12/19/21 10:24 Freq: Status: Active Protocol: Document 03/21/22 16:45 DCW (Rec: 03/21/22 17:27 DCW [id number]) Cardio Equipment Upper Body Ergometer (UBE) Duration (Minutes) 5 Seat Position 10 Height 5 Gym Equipment Therapeutic Ball 2 Exercise Details Ball stabilization vs perturbatiob Ball Size/Color Green - 65 cm Body Position Supine 1 Exercise Details Prone Walk-out /c Resistance Ball Size/Color Green - 65 cm Yellow T-band Body Position Prone Therapeutic Exercises Supine Exercises 3 Supine Exercise Name PT-directed shoulder PROM Side right Prone Exercises 2 Prone Exercise Name ER (90/90), Rows Side bilateral Resistance 5# Comments Prone on Green T-ball 1 Prone Exercise Name Hughston's Side bilateral Resistance 5# Comments Prone on Green T-ball Manual Therapy Treatment Soft Tissue Mobilization 2 Body Location R UT & scalenes Mobilization Type Strumming,Sustained Pressure Intensity/Depth Moderate Body Position Sidelying 1 Body Location R Subscapularis Mobilization Type Sustained Pressure Body Position Supine Joint Mobilizations 1 Joint R Scapulothoracic Direction Lateral Grade III Body Position Supine PT-OP-T Assessment and Plan Start: 12/19/21 10:24 Freq: Status: Active Protocol: Document 03/21/22 16:45 DCW (Rec: 03/21/22 17:27 DCW [id number]) Physical Therapy Assessment Impairments Impairments Functional Activities, Functional Mobility,Pain,ROM, Soft Tissue Mobility,Strength, Tone Goals Two Impairment Pt unable to perform overhead activities Prison Goal (LTG) Pt to demonstrate AROM right shoulder flexion and abduction >160? in order to return to her usual high-level hobby activities LTG Duration 04/23/22 One Impairment Pt does not have an appropriate home exercise program Short Term Goal (STG) Pt to be independent and compliant with an appropriate HEP STG Duration 03/23/22 Assessment Summary Assessment Pt showing improvement with each visit, ER strength and ROM improving. Physical Therapy Plan Frequency and Duration Frequency of Treatment 2x/Week Duration of Treatment Two months Plan of Care Start Date 02/21/22 Plan of Care End Date 04/23/22 Therapeutic Interventions Therapeutic Interventions Aquatic Therapy,Home Exercise Program,Joint Mobilizations, Manual Therapy,Neuromuscular Re-education,Patient/Caregiver Education,Self-Care/Home Management,Soft Tissue Mobilization,Therapeutic Activities,Therapeutic Exercises Modalities Cold Pack/Ice Massage,Electric Stimulation,Hot Packs, Ultrasound Next Visit Focus/Plan Next Note Type Treatment Note Next Visit Plan R shoulder ROM, strength
--- NOTE | 2022-03-23 17:33 | PT.OTN ---
Current Diagnoses Pain in right shoulder (03/23/22) Stiffness of right shoulder, not elsewhere classified (03/23/22) Encounter for other orthopedic aftercare (03/23/22) Physical Therapy Treatment Note PT-OP-A Visit Information Start: 12/19/21 10:24 Freq: Status: Active Protocol: Document 03/23/22 16:45 DCW (Rec: 03/23/22 17:33 DCW [id number]) Out-Patient Physical Therapy Visit Information Visit Information Visit Type Treatment Note Visit Start Time 16:45 Visit Stop Time 17:30 Total Visit Minutes 45 Visit Number 23 Number of EXAMINING OFFICER Visits 0 Evaluation Information Evaluation Date 12/19/21 PT-OP-B Current Condition Start: 12/19/21 10:24 Freq: Status: Active Protocol: Document 12/19/21 09:45 DCW (Rec: 12/19/21 11:51 DCW [id number]) Current Condition History of Current Condition Onset Date 11/03/21 Current Complaints s/p R Bankart repair History of Current Condition Pt is a 36 year old female presenting to skilled therapy six weeks s/p R Bankart repair following history of anterior shoulder dislocation. Pt reports she has been wearing a sling up until one week ago, when she had her post-op follow-up and was told she could remove it. Pt has been performing pendulums and PROM exercises at home. Experiences occasional pain at a/c joint with extended dangling of arm or reaching forward, notes this was an issue prior to dislocation. Pt presents with right shoulder stiffness and weakness. Most notable with posterior shoulder pain with reaching cross-body. Notes desire to return to performing overhead activities, get back to 100%. PT-OP-C Subjective Start: 12/19/21 10:24 Freq: Status: Active Protocol: Document 03/23/22 16:45 DCW (Rec: 03/23/22 17:33 DCW [id number]) OP-PT Subjective Patient Comments Patient Comments Pt feels she is at 99.9% PT-OP-E Functional Tests Start: 12/19/21 10:24 Freq: Status: Active Protocol: Document 02/21/22 16:45 DCW (Rec: 02/21/22 17:40 DCW [id number]) Functional Tests Delmisey's Scratch Test Action 1- Left Posterior opposite shoulder Action 1- Right Lateral opposite shoulder Action 2- Left T5 Action 2- Right T3 Action 3- Left T 6 Action 3- Right L3 PT-OP-F Manual Assessment Start: 12/19/21 11:54 Freq: Status: Active Protocol: Document 02/21/22 16:45 DCW (Rec: 02/21/22 17:40 DCW [id number]) Manual Assessments Soft Tissue Assessment Soft Tissue Mobility Assessment Mild tone with tenderness to palpation 09/27: Complaint of pain along right subscap. Slight increased tone due to compensatory movements in right upper trap and levator scap. PT-OP-K Range of Motion Start: 12/19/21 10:24 Freq: Status: Active Protocol: Document 02/21/22 16:45 DCW (Rec: 02/21/22 17:40 DCW [id number]) Shoulder Goniometric Range of Motion Shoulder Right Passive Shoulder ROM WFL No Testing Position Supine Flexion 176 Abduction 170 External Rotation at 0 degrees Abduction 45 Right Active Shoulder ROM WFL No Testing Position Sitting Flexion 140 Abduction 127 External Rotation at 0 degrees Abduction 0 PT-OP-M Strength Start: 12/19/21 10:24 Freq: Status: Active Protocol: Document 02/21/22 16:45 DCW (Rec: 02/21/22 17:40 DCW [id number]) Shoulder Strength Shoulder Manual Muscle Testing Right Flexion 3+ Fair+ Abduction (C5) 3 Fair External Rotation 3- Fair- Internal Rotation 4 Good PT-OP-Q Treatments Start: 12/19/21 10:24 Freq: Status: Active Protocol: Document 03/23/22 16:45 DCW (Rec: 03/23/22 17:33 DCW [id number]) Cardio Equipment Upper Body Ergometer (UBE) Duration (Minutes) 5 Seat Position 10 Height 5 Gym Equipment Shuttle Rebound Ball toss Exercise Details Red kickball overhead toss at rebounder Therapeutic Ball 2 Exercise Details Ball stabilization vs perturbatiob Ball Size/Color Green - 65 cm Body Position Supine 1 Exercise Details Prone Walk-out /c Resistance Ball Size/Color Green - 65 cm Red T-band Body Position Prone Therapeutic Exercises Supine Exercises 3 Supine Exercise Name PT-directed shoulder PROM Side right Prone Exercises 2 Prone Exercise Name ER (90/90), Rows Side bilateral Resistance 5# Comments Prone on Green T-ball 1 Prone Exercise Name Hughston's Side bilateral Resistance 5# Comments Prone on Green T-ball Standing Exercises 1 Standing Exercise Name Overhead t-band toss Side right Resistance Lv 3 Manual Therapy Treatment Soft Tissue Mobilization 2 Body Location R UT & scalenes Mobilization Type Strumming,Sustained Pressure Intensity/Depth Moderate Body Position Sidelying 1 Body Location R Subscapularis Mobilization Type Sustained Pressure Body Position Supine Joint Mobilizations 1 Joint R Scapulothoracic Direction Lateral Grade III Body Position Supine PT-OP-T Assessment and Plan Start: 12/19/21 10:24 Freq: Status: Active Protocol: Document 03/23/22 16:45 DCW (Rec: 03/23/22 17:33 DCW [id number]) Physical Therapy Assessment Impairments Impairments Functional Activities, Functional Mobility,Pain,ROM, Soft Tissue Mobility,Strength, Tone Goals Two Impairment Pt unable to perform overhead activities Mixing House Operator Goal (LTG) Pt to demonstrate AROM right shoulder flexion and abduction >160? in order to return to her usual high-level hobby activities LTG Duration 04/23/22 One Impairment Pt does not have an appropriate home exercise program Short Term Goal (STG) Pt to be independent and compliant with an appropriate HEP STG Duration 03/23/22 Assessment Summary Assessment Trial of ball throwing more today to help return pt to pre -injury ability to participate in kick ball. Physical Therapy Plan Frequency and Duration Frequency of Treatment 2x/Week Duration of Treatment Two months Plan of Care Start Date 02/21/22 Plan of Care End Date 04/23/22 Therapeutic Interventions Therapeutic Interventions Aquatic Therapy,Home Exercise Program,Joint Mobilizations, Manual Therapy,Neuromuscular Re-education,Patient/Caregiver Education,Self-Care/Home Management,Soft Tissue Mobilization,Therapeutic Activities,Therapeutic Exercises Modalities Cold Pack/Ice Massage,Electric Stimulation,Hot Packs, Ultrasound Next Visit Focus/Plan Next Note Type Treatment Note Next Visit Plan R shoulder ROM, strength
--- NOTE | 2022-03-28 17:30 | PT.OTN ---
Current Diagnoses Pain in right shoulder (03/28/22) Stiffness of right shoulder, not elsewhere classified (03/28/22) Encounter for other orthopedic aftercare (03/28/22) Physical Therapy Treatment Note PT-OP-A Visit Information Start: 12/19/21 10:24 Freq: Status: Active Protocol: Document 03/28/22 16:46 DCW (Rec: 03/28/22 17:30 DCW [id number]) Out-Patient Physical Therapy Visit Information Visit Information Visit Type Treatment Note Visit Start Time 16:46 Visit Stop Time 17:30 Total Visit Minutes 44 Visit Number 24 Number of SPORTING GOODS SALES MANAGER Visits 0 Evaluation Information Evaluation Date 12/19/21 PT-OP-B Current Condition Start: 12/19/21 10:24 Freq: Status: Active Protocol: Document 12/19/21 09:45 DCW (Rec: 12/19/21 11:51 DCW [id number]) Current Condition History of Current Condition Onset Date 11/03/21 Current Complaints s/p R Bankart repair History of Current Condition Pt is a 36 year old female presenting to skilled therapy six weeks s/p R Bankart repair following history of anterior shoulder dislocation. Pt reports she has been wearing a sling up until one week ago, when she had her post-op follow-up and was told she could remove it. Pt has been performing pendulums and PROM exercises at home. Experiences occasional pain at a/c joint with extended dangling of arm or reaching forward, notes this was an issue prior to dislocation. Pt presents with right shoulder stiffness and weakness. Most notable with posterior shoulder pain with reaching cross-body. Notes desire to return to performing overhead activities, get back to 100%. PT-OP-C Subjective Start: 12/19/21 10:24 Freq: Status: Active Protocol: Document 03/28/22 16:46 DCW (Rec: 03/28/22 17:30 DCW [id number]) OP-PT Subjective Patient Comments Patient Comments Pt feeling good today. PT-OP-E Functional Tests Start: 12/19/21 10:24 Freq: Status: Active Protocol: Document 02/21/22 16:45 DCW (Rec: 02/21/22 17:40 DCW [id number]) Functional Tests Delmisey's Scratch Test Action 1- Left Posterior opposite shoulder Action 1- Right Lateral opposite shoulder Action 2- Left T5 Action 2- Right T3 Action 3- Left T 6 Action 3- Right L3 PT-OP-F Manual Assessment Start: 12/19/21 11:54 Freq: Status: Active Protocol: Document 02/21/22 16:45 DCW (Rec: 02/21/22 17:40 DCW [id number]) Manual Assessments Soft Tissue Assessment Soft Tissue Mobility Assessment Mild tone with tenderness to palpation 1: Complaint of pain along right subscap. Slight increased tone due to compensatory movements in right upper trap and levator scap. PT-OP-K Range of Motion Start: 12/19/21 10:24 Freq: Status: Active Protocol: Document 02/21/22 16:45 DCW (Rec: 02/21/22 17:40 DCW [id number]) Shoulder Goniometric Range of Motion Shoulder Right Passive Shoulder ROM WFL No Testing Position Supine Flexion 176 Abduction 170 External Rotation at 0 degrees Abduction 45 Right Active Shoulder ROM WFL No Testing Position Sitting Flexion 140 Abduction 127 External Rotation at 0 degrees Abduction 0 PT-OP-M Strength Start: 12/19/21 10:24 Freq: Status: Active Protocol: Document 02/21/22 16:45 DCW (Rec: 02/21/22 17:40 DCW [id number]) Shoulder Strength Shoulder Manual Muscle Testing Right Flexion 3+ Fair+ Abduction (C5) 3 Fair External Rotation 3- Fair- Internal Rotation 4 Good PT-OP-Q Treatments Start: 12/19/21 10:24 Freq: Status: Active Protocol: Document 03/28/22 16:46 DCW (Rec: 03/28/22 17:30 DCW [id number]) Cardio Equipment Upper Body Ergometer (UBE) Duration (Minutes) 5 Seat Position 10 Height 5 Gym Equipment Shuttle Rebound Ball toss Exercise Details Red kickball overhead toss at rebounder Therapeutic Ball 2 Exercise Details Ball stabilization vs perturbation Ball Size/Color Green - 65 cm Body Position Supine 1 Exercise Details Prone Walk-out /c Resistance Ball Size/Color Green - 65 cm Red T-band Body Position Prone Therapeutic Exercises Supine Exercises 3 Supine Exercise Name PT-directed shoulder PROM Side right Prone Exercises 2 Prone Exercise Name ER (90/90), Rows Side bilateral Resistance 5# Comments Prone on Green T-ball 1 Prone Exercise Name Hughston's Side bilateral Resistance 5# Comments Prone on Green T-ball Standing Exercises 1 Standing Exercise Name Overhead t-band toss Side right Resistance Lv 4 Manual Therapy Treatment Soft Tissue Mobilization 2 Body Location R UT & scalenes Mobilization Type Strumming,Sustained Pressure Intensity/Depth Moderate Body Position Sidelying 1 Body Location R Subscapularis Mobilization Type Sustained Pressure Body Position Supine Joint Mobilizations 1 Joint R Scapulothoracic Direction Lateral Grade III Body Position Supine PT-OP-T Assessment and Plan Start: 12/19/21 10:24 Freq: Status: Active Protocol: Document 03/28/22 16:46 DCW (Rec: 03/28/22 17:30 DCW [id number]) Physical Therapy Assessment Impairments Impairments Functional Activities, Functional Mobility,Pain,ROM, Soft Tissue Mobility,Strength, Tone Goals Two Impairment Pt unable to perform overhead activities Vocal Music Instructor Goal (LTG) Pt to demonstrate AROM right shoulder flexion and abduction >160? in order to return to her usual high-level hobby activities LTG Duration 04/23/22 One Impairment Pt does not have an appropriate home exercise program Short Term Goal (STG) Pt to be independent and compliant with an appropriate HEP STG Duration 03/23/22 Assessment Summary Assessment Pt continuing to improve, no notable deficits in her day-to -day life, still somewhat limited with ER. Physical Therapy Plan Frequency and Duration Frequency of Treatment 2x/Week Duration of Treatment Two months Plan of Care Start Date 02/21/22 Plan of Care End Date 04/23/22 Therapeutic Interventions Therapeutic Interventions Aquatic Therapy,Home Exercise Program,Joint Mobilizations, Manual Therapy,Neuromuscular Re-education,Patient/Caregiver Education,Self-Care/Home Management,Soft Tissue Mobilization,Therapeutic Activities,Therapeutic Exercises Modalities Cold Pack/Ice Massage,Electric Stimulation,Hot Packs, Ultrasound Next Visit Focus/Plan Next Note Type Treatment Note Next Visit Plan R shoulder ROM, strength
--- NOTE | 2022-05-03 17:06 | PT.OPPN ---
Current Diagnoses Pain in right shoulder (05/03/22) Stiffness of right shoulder, not elsewhere classified (05/03/22) Encounter for other orthopedic aftercare (05/03/22) Physical Therapy Progress Note PT-OP-A Visit Information Start: 12/19/21 10:24 Freq: Status: Active Protocol: Document 05/03/22 16:45 DCW (Rec: 05/03/22 17:05 DCW [id number]) Out-Patient Physical Therapy Visit Information Visit Information Visit Type Discharge Summary Visit Start Time 16:45 Visit Stop Time 17:00 Total Visit Minutes 15 Visit Number 25 Number of [employer] Visits 0 Evaluation Information Evaluation Date 12/19/21 PT-OP-B Current Condition Start: 12/19/21 10:24 Freq: Status: Active Protocol: Document 12/19/21 09:45 DCW (Rec: 12/19/21 11:51 DCW [id number]) Current Condition History of Current Condition Onset Date 11/03/21 Current Complaints s/p R [employer] repair History of Current Condition Pt is a 36 year old female presenting to skilled therapy six weeks s/p R [employer]art repair following history of anterior shoulder dislocation. Pt reports she has been wearing a sling up until one week ago, when she had her post-op follow-up and was told she could remove it. Pt has been performing pendulums and PROM exercises at home. Experiences occasional pain at a/c joint with extended dangling of arm or reaching forward, notes this was an issue prior to dislocation. Pt presents with right shoulder stiffness and weakness. Most notable with posterior shoulder pain with reaching cross-body. Notes desire to return to performing overhead activities, get back to 100%. PT-OP-C Subjective Start: 12/19/21 10:24 Freq: Status: Active Protocol: Document 05/03/22 16:45 DCW (Rec: 05/03/22 17:05 DCW [id number]) OP-PT Subjective Patient Comments Patient Comments It feels great. PT-OP-E Functional Tests Start: 12/19/21 10:24 Freq: Status: Active Protocol: Document 05/03/22 16:45 DCW (Rec: 05/03/22 16:56 DCW [id number]) Functional Tests Delmisey's Scratch Test Action 1: The subject is instructed to touch the opposite shoulder with his/her hand. This motion checks Glenohumeral adduction, internal rotation , horizontal adduction and scapular protraction Action 2: The subject is instructed to place his/her arm overhead and reach behind the neck to touch his/her upper back. This motion checks Glenohumeral abduction, external rotation and scapular upward rotation and elevation. Action 3: The subject puts his/her hand on the lower back and reaches upward as far as possible. This motion checks glenohumeral adduction, internal rotation and scapular retraction with downward rotation Action 1- Left Posterior opposite shoulder Action 1- Right Posterioropposite shoulder Action 2- Left T5 Action 2- Right T5 Action 3- Left T6 Action 3- Right T6 PT-OP-F Manual Assessment Start: 12/19/21 11:54 Freq: Status: Active Protocol: Document 05/03/22 16:45 DCW (Rec: 05/03/22 16:56 DCW [id number]) Manual Assessments Soft Tissue Assessment Soft Tissue Mobility Assessment Mild tone with slight tenderness to palpation along right infraspinatus muscle belly. PT-OP-K Range of Motion Start: 12/19/21 10:24 Freq: Status: Active Protocol: Document 05/03/22 16:45 DCW (Rec: 05/03/22 16:56 DCW [id number]) Shoulder Goniometric Range of Motion Shoulder Measured in Degrees Right Passive Shoulder ROM WFL Yes Testing Position Standing Flexion 180 Abduction 180 External Rotation at 0 degrees Abduction 70 Right Active Shoulder ROM WFL Yes Testing Position Standing Flexion 180 Abduction 180 External Rotation at 0 degrees Abduction 65 PT-OP-M Strength Start: 12/19/21 10:24 Freq: Status: Active Protocol: Document 05/03/22 16:45 DCW (Rec: 05/03/22 16:56 DCW [id number]) Shoulder Strength Shoulder Manual Muscle Testing Right Flexion 5 Normal Abduction (C5) 5 Normal External Rotation 5 Normal Internal Rotation 5 Normal Horizontal Abduction 5 Normal Horizontal Adduction 5 Normal PT-OP-T Assessment and Plan Start: 12/19/21 10:24 Freq: Status: Active Protocol: Document 05/03/22 16:45 DCW (Rec: 05/03/22 17:05 DCW [id number]) Physical Therapy Assessment Impairments Impairments Functional Activities, Functional Mobility,Pain,ROM, Soft Tissue Mobility,Strength, Tone Goals Two Impairment Pt unable to perform overhead activities Mcc Goal (LTG) Pt to demonstrate AROM right shoulder flexion and abduction >160? in order to return to her usual high-level hobby activities LTG Duration Met One Impairment Pt does not have an appropriate home exercise program Short Term Goal (STG) Pt to be independent and compliant with an appropriate HEP STG Duration Met Assessment Summary Assessment Pt presents having met all goals, current ROM and strength WNL, no further complaints, pains, or difficulties. Pt appropriate for discharge at this time. Physical Therapy Plan Frequency and Duration Frequency of Treatment 1x/Week Duration of Treatment One day Plan of Care Start Date 05/03/22 Plan of Care End Date 05/03/22 Therapeutic Interventions Therapeutic Interventions Aquatic Therapy,Home Exercise Program,Joint Mobilizations, Manual Therapy,Neuromuscular Re-education,Patient/Caregiver Education,Self-Care/Home Management,Soft Tissue Mobilization,Therapeutic Activities,Therapeutic Exercises Modalities Cold Pack/Ice Massage,Electric Stimulation,Hot Packs, Ultrasound Discharge Physical Therapy Discharge Reasons Goals Met Next Visit Focus/Plan Next Note Type Discharge Summary
--- NOTE | 2022-05-03 17:06 | PT.OPPOC ---
Physical, Occupational & Speech Therapy At [facility] Current Diagnoses Pain in right shoulder (05/03/22) Stiffness of right shoulder, not elsewhere classified (05/03/22) Encounter for other orthopedic aftercare (05/03/22) Visit Care Team Role Provider Type Caden Gimenez MD Family Provider Physician Primary Care Provider Specialty: Family Practice Address: [address] [place] [address], [id number] Email: [email or web address] Cesar Hancock MD Attending Provider Non-Staff Referring Provider Specialty: Orthopedics Address: [address] [place] [address], [id number] Email: Plan Of Care PT-OP-T Assessment and Plan Start: 12/19/21 10:24 Freq: Status: Active Protocol: Document 05/03/22 16:45 DCW (Rec: 05/03/22 17:05 DCW [id number]) Physical Therapy Assessment Impairments Impairments Functional Activities, Functional Mobility,Pain,ROM, Soft Tissue Mobility,Strength, Tone Goals Two Impairment Pt unable to perform overhead activities Longterm Goal (LTG) Pt to demonstrate AROM right shoulder flexion and abduction >160? in order to return to her usual high-level hobby activities LTG Duration Met One Impairment Pt does not have an appropriate home exercise program Short Term Goal (STG) Pt to be independent and compliant with an appropriate HEP STG Duration Met Assessment Summary Assessment Pt presents having met all goals, current ROM and strength WNL, no further complaints, pains, or difficulties. Pt appropriate for discharge at this time. Physical Therapy Plan Frequency and Duration Frequency of Treatment 1x/Week Duration of Treatment One day Plan of Care Start Date 05/03/22 Plan of Care End Date 05/03/22 Therapeutic Interventions Therapeutic Interventions Aquatic Therapy,Home Exercise Program,Joint Mobilizations, Manual Therapy,Neuromuscular Re-education,Patient/Caregiver Education,Self-Care/Home Management,Soft Tissue Mobilization,Therapeutic Activities,Therapeutic Exercises Modalities Cold Pack/Ice Massage,Electric Stimulation,Hot Packs, Ultrasound Discharge Physical Therapy Discharge Reasons Goals Met Next Visit Focus/Plan Next Note Type Discharge Summary Plan of Care Dates Plan of Care Start Date 05/03/22 Plan of Care End Date 05/03/22 Electronically Signed by: Mook Harkins, PT 05/03/22 1087 If you are in agreement with this Plan of Care, please return a signed and dated copy. I have reviewed this Plan of Care and certify that the skilled therapy services above are required to meet the patient?s needs. Physician Signature Date Printed Name and Credentials Clinical Instructor Signature Printed Name and Credentials
== END 2022-05-11 14:17 ==
LOC: PHYS 16:45
PROVIDERS: Family Provider Family Medicine; PCP Family Medicine; Referring Provider Orthopaedic Surgery; Visit Provider Orthopaedic Surgery
DX: Z47.89 Encounter for other orthopedic aftercare (principal); M25.511 Pain in right shoulder; M25.611 Stiffness of right shoulder, not elsewhere classified
CPT/HCPCS: 97110; 97140; 97161

== ENCOUNTER → 2022-12-08 09:21 | Outpatient (CLI) | payer OTHER, SELFPAY ==
[2022-12-08 11:44] LABS: Add Manual Diff / Slide Review NO; Basophils Absolute Auto 0 /uL (0-100); Basophils Percent Auto 0.9 % (0-2); Eosinophils Absolute Auto 100 /uL (0-450); Eosinophils Percent Auto 1.3 % (2-4); Hematocrit 35.4 % (36-46); Hemoglobin 12.4 g/dL (12.0-16.0); Lymphocytes Absolute Auto 1600 /uL (1100-4500); Lymphocytes Percent Auto 37.3 % (25-40); Mean Corpuscular HGB Conc 34.9 % (30-36); Mean Corpuscular Volume 91.6 fL (80-100); Monocytes Absolute Auto 300 /uL (0-900); Monocytes Percent Auto 6.6 % (3-14); Neutrophils Absolute Auto 2300 /uL (1500-7000); Neutrophils Percent Auto 53.9 % (50-75); Platelet Count 295 X10^3/uL (150-400); Red Blood Cell Count 3.87 X10^6/uL (4.0-5.2); Red Cell Distribution Width 13.2 % (11.6-14.8); White Blood Cell Count 4.3 X10^3/uL (4.5-11.0)
[2022-12-08 11:48] LABS: Hemoglobin A1C% w Est Avg Glu 5.1 % (4.0-6.0)
[2022-12-08 12:09] LABS: Alanine Aminotransferase 23 IU/L (<35); Albumin 4.5 g/dL (3.5-5.0); Albumin Globulin Ratio 1.7 (1.0-2.8); Alkaline Phosphatase 50 U/L (38-126); Aspartate Aminotransferase 28 IU/L (14-36); BUN Creatinine Ratio 18.5 (6-22); Bilirubin Total 0.7 mg/dL (0.2-1.3); Blood Urea Nitrogen 10 mg/dL (7-17); Calcium 9.3 mg/dL (8.4-10.2); Carbon Dioxide 27 mmol/L (22-32); Chloride 102 mmol/L (98-107); Cholesterol 161 mg/dL (140-199); Estimated Glomerular Filt Rate > 60 mL/min (>60); Globulin 2.6 g/dL (1.7-4.1); Glucose 76 mg/dL (70-100); HDL Cholesterol 58 mg/dL (40-60); HEMOLYSIS < 15 (0-50); LDL Cholesterol Calculated 91 mg/dL (<100); Potassium 4.4 mmol/L (3.4-5.1); Sodium 138 mmol/L (137-145); Total Protein 7.1 g/dL (6.3-8.2); Triglycerides 59 mg/dL (35-150)
== END ==
PROVIDERS: Family Provider Family Medicine; PCP Family Medicine; Referring Provider Family Medicine; Visit Provider Family Medicine
DX: E78.5 Hyperlipidemia, unspecified (principal); E16.2 Hypoglycemia, unspecified
CPT/HCPCS: 36415; 80053; 80061; 83036; 84443; 85025

== ENCOUNTER → 2024-12-05 08:55 | Outpatient (CLI) | payer OTHER, SELFPAY ==
[2024-12-05 09:58] LABS: Alanine Aminotransferase 19 IU/L (<35); Albumin 4.5 g/dL (3.5-5.0); Albumin Globulin Ratio 1.8 (1.0-2.8); Alkaline Phosphatase 58 U/L (38-126); Aspartate Aminotransferase 28 IU/L (14-36); Blood Urea Nitrogen 12 mg/dL (7-17); Calcium 9.7 mg/dL (8.4-10.2); Carbon Dioxide 22 mmol/L (22-32); Chloride 103 mmol/L (98-107); Cholesterol 186 mg/dL (140-199); Estimated Glomerular Filt Rate > 60 mL/min (>60); Globulin 2.5 g/dL (1.7-4.1); Glucose 88 mg/dL (70-100); HDL Cholesterol 63 mg/dL (40-60); HEMOLYSIS < 15 (0-50); LDL Cholesterol Calculated 111 mg/dL (<100); Potassium 4.3 mmol/L (3.4-5.1); Sodium 136 mmol/L (137-145); Triglycerides 62 mg/dL (35-150)
[2024-12-05 10:08] LABS: Add Manual Diff / Slide Review NO; Basophils Absolute Auto 100 /uL (0-100); Basophils Percent Auto 0.9 % (0-2); Eosinophils Absolute Auto 100 /uL (0-450); Hematocrit 38.9 % (36-46); Hemoglobin 13.5 g/dL (12.0-16.0); Lymphocytes Absolute Auto 1900 /uL (1100-4500); Lymphocytes Percent Auto 31.9 % (25-40); Mean Corpuscular HGB Conc 34.7 % (30-36); Mean Corpuscular Hemoglobin 31.9 PG (26-34); Mean Corpuscular Volume 91.8 fL (80-100); Monocytes Absolute Auto 400 /uL (0-900); Monocytes Percent Auto 7.6 % (3-14); Neutrophils Absolute Auto 3400 /uL (1500-7000); Neutrophils Percent Auto 58.6 % (50-75); Platelet Count 390 X10^3/uL (150-400); Red Blood Cell Count 4.23 X10^6/uL (4.0-5.2); Red Cell Distribution Width 12.9 % (11.6-14.8); White Blood Cell Count 5.8 X10^3/uL (4.5-11.0)
[2024-12-05 10:28] LABS: TSH w/ Reflex to FT4 0.79 uIU/mL (0.47-4.68)
[2024-12-05 10:32] LABS: Hemoglobin A1C% w Est Avg Glu 4.8 % (4.0-6.0)
[2024-12-08 02:08] LABS: Lipoprotein (a) 177.8 nmol/L (<75.0)
== END ==
PROVIDERS: Family Provider Family Medicine; PCP Family Medicine; Referring Provider Family Medicine; Visit Provider Family Medicine
DX: Z00.01 Encounter for general adult medical examination with abnormal findings (principal); E16.2 Hypoglycemia, unspecified; E78.5 Hyperlipidemia, unspecified
CPT/HCPCS: 36415; 80053; 80061; 83036; 83695; 84443; 85025